=== PATIENT | female | born 1955 | race Caucasian/White ===

== ENCOUNTER 2018-08-25 13:48 | Inpatient (IN) | payer MEDICAID ==
[~2018-08-25] VITALS: Ht 170.2 cm; Wt 71.4 kg
--- NOTE | 2018-08-25 13:55 | NUR ---
ED Nurse Note: Patient brought in by ambulance from [facility] due to abnormal lab result, HGB6.7 and WBC12.68. patient is alert awake x4 ambulatory with assistance, vitals stable at this time, see flowsheet. breathing unlabored and even, skin warm to touch. patient attached to the monitor
[2018-08-25 13:59] VITALS: BP 110/72
[2018-08-25] MEDS ORDERED: ATIVAN0.5 MG ORAL (14:01)
[2018-08-25] MEDS ORDERED: MULTIVITAMINS1 EAC8 ORAL (14:01)
[2018-08-25] MEDS ORDERED: LACTULOSE20 GM/301 ORAL (14:01)
[2018-08-25] MEDS ORDERED: MILK OF MA400 MG/51 ORAL (14:01)
[2018-08-25] MEDS ORDERED: FUROSEMIDE20 M1 ORAL (14:01)
[2018-08-25] MEDS ORDERED: ZYPREXA5 MG ORAL (14:01)
[2018-08-25] MEDS ORDERED: MORPHINE S10 MG/5 ML ORAL ×2 (14:01)
[2018-08-25] MEDS ORDERED: TUMS200 M1 PO (14:01)
[2018-08-25] MEDS ORDERED: AMBIEN5 MG ORAL (14:01)
[2018-08-25] MEDS ORDERED: LORATADINE10 M1 PO (14:01)
[2018-08-25] MEDS ORDERED: ZOFRAN4 M3 ORAL (14:01)
[2018-08-25] MEDS ORDERED: ALBUTEROL SULF8.5 GM INH (14:01)
--- NOTE | 2018-08-25 14:27 | NUR ---
ED Nurse Note: patient able to walk and void on her own per Dr. Shreyas wright straight cath
--- NOTE | 2018-08-25 14:31 | Diagnostic Imaging Report ---
Indication: Dyspnea Comparison: None A single view chest radiograph was obtained. Findings: Moderate to large hiatal hernia is present. Heart size is normal. Lungs are clear. No infiltrate identified. The bones are unremarkable. IMPRESSION: No acute cardiopulmonary disease identified Hiatal hernia
[2018-08-25 14:40] LABS: MEAN CORPUSCULAR VOLUME 69 FL (80-99); PLATELET COUNT 182 K/UL (150-450); RED BLOOD COUNT 3.21 M/UL (4.20-5.40); RED CELL DISTRIBUTION WIDTH 15.1 % (11.6-14.8); WHITE BLOOD COUNT 7.8 K/UL (4.8-10.8)
[2018-08-25 14:42] LABS: HEMOGLOBIN 6.8 G/DL (12.0-16.0)
[2018-08-25 14:46] LABS: INR 1.1 (0.9-1.1)
[2018-08-25 14:47] LABS: ANION GAP 7 mmol/L (5-15); BLOOD UREA NITROGEN 18 mg/dL (7-18); CALCIUM 8.7 MG/DL (8.5-10.1); CARBON DIOXIDE 30 MMOL/L (21-32); CHLORIDE 102 MMOL/L (98-107); CREATININE 0.9 MG/DL (0.55-1.30); POTASSIUM 3.9 MMOL/L (3.5-5.1); SODIUM 139 MMOL/L (136-145)
[2018-08-25 14:47] LABS: APPEARANCE,URINE CLEAR; BILIRUBIN, URINE NEGATIVE (NEGATIVE); GLUCOSE, URINE (UA) NEGATIVE (NEGATIVE); KETONES,URINE NEGATIVE (NEGATIVE); LEUKOCYTE ESTERASE ,URINE 1+ (NEGATIVE); NITRITE,URINE NEGATIVE (NEGATIVE); PH,URINE 7 (4.5-8.0); PROTEIN,URINE NEGATIVE (NEGATIVE); UROBILINOGEN,URINE NORMAL MG/DL (0.0-1.0)
[2018-08-25 14:50] LABS: COLOR,URINE YELLOW
[2018-08-25 15:13] LABS: ALANINE AMINOTRANSFERASE 19 U/L (12-78); ALBUMIN/GLOBULIN RATIO 0.8 (1.0-2.7); ALKALINE PHOSPHATASE 153 U/L (46-116); ASPARTATE AMINO TRANSFERASE 23 U/L (15-37); BILIRUBIN,TOTAL 0.4 MG/DL (0.2-1.0); CKMB 1.2 NG/ML (0.0-3.6); CREATINE KINASE 46 U/L (26-308)
[2018-08-25] MEDS ORDERED: Morphine Sulfate 2mg/ml Inj(IV/IM USE ONLY) IVP ONE ×2 (15:30→16:15)
--- NOTE | 2018-08-25 15:45 | NUR ---
ED Nurse Note: 1st PRBC started, VSS, see blood transfusion sheet.
[2018-08-25 15:52] VITALS: BP 110/72
[2018-08-25 15:53] VITALS: BP 109/63
--- NOTE | 2018-08-25 16:00 | NUR ---
ED Nurse Note: patient is tolerating blood transfusion without any complication, vss, see transfusion sheet.
--- NOTE | 2018-08-25 16:28 | NUR ---
ED Nurse Note: per Dr. Pritchett, patient ok to be transferred to , 1st unit of PRBC is running without complication
[2018-08-25 16:47] VITALS: BP 112/62
--- NOTE | 2018-08-25 16:49 | NUR ---
ED Nurse Note: patient is being transferred up to 4E with TRADE MARKER endorsed all care and belongings to Yany RN. Endorsed to Yany that paitent's 1st PRBC is infusing at this time, endorsed that total of 2 PRBC was ordered. Yany acknowledged.
--- NOTE | 2018-08-25 16:51 | NUR ---
ED Nurse Note: called and notified Jerica Mohr [phone] that patient is transferred to 420-1
--- NOTE | 2018-08-25 16:51 | Emergency Room Report ---
History of Present Illness General Chief Complaint: Abnormal Labs Source: Patient, Medical Record Present Illness HPI 62-year-old female presents ED for evaluation. Brought in by EMS from [facility]. Poorly had low hemoglobin and hematocrit on labs drawn done recently. Patient states she feels fine. States she does have blood in her stool but states she's been also experiencing hemorrhoids. States that she's had previous anemia and has required blood transfusion. Denies any dizziness or weakness. Has history of cirrhosis and has required paracentesis in the past. No other aggravating relieving factors. Denies any other associated symptoms Allergies: Coded Allergies: PROPOXYPHENE (Verified Allergy, Unknown, 08/25/18) Patient History Past Medical History: GERD, psych hx, other - cirrhosis Past Surgical History: none Pertinent Family History: none Social History: Denies: smoking, alcohol use, drug use Now: No Immunizations: UTD Reviewed Nursing Documentation: PMH: Agreed; PSxH: Agreed Nursing Documentation-PMH Past Medical History: No History, Except For Hx Hypertension: Yes Hx Gastrointestinal Problems: Yes - Liver Cirrhosis, edema, GERD History Of Psychiatric Problem: Yes - Psychosis, major depression, anxiety Review of Systems All Other Systems: negative except mentioned in HPI Physical Exam Vital Signs Date Time Temp Pulse Resp B/P (MAP) Pulse Ox O2 Delivery O2 Flow Rate FiO2 08/25/18 13:49 98.8 98 16 97 Room Air 08/25/18 13:59 110/72 Sp02 EP Interpretation: reviewed, normal General Appearance: no apparent distress, alert, GCS 15, non-toxic Head: normocephalic, atraumatic Eyes: bilateral eye normal inspection, bilateral eye PERRL ENT: hearing grossly normal, normal pharynx, no angioedema, normal voice Neck: full range of motion, supple/symm/no masses Respiratory: chest non-tender, lungs clear, normal breath sounds, speaking full sentences Cardiovascular #1: regular rate, rhythm, no edema Cardiovascular #2: 2+ carotid (R), 2+ carotid (L), 2+ radial (R), 2+ radial (L) , 2+ dorsalis pedis (R), 2+ dorsalis pedis (L) Gastrointestinal: normal bowel sounds, non tender, soft, non-distended, no guarding, no rebound Rectal: blood streaked stool, heme positive stool, other - buffet attendant present Genitourinary: normal inspection, no CVA tenderness Musculoskeletal: back normal, gait/station normal, normal range of motion, non- tender Neurologic: alert, oriented x3, responsive, motor strength/tone normal, sensory intact, speech normal Psychiatric: judgement/insight normal, memory normal, mood/affect normal, no suicidal/homicidal ideation Reflexes: 3+ bicep (R), 3+ bicep (L), 3+ tricep (R), 3+ tricep (L), 3+ knee (R) , 3+ knee (L) Skin: normal color, no rash, warm/dry, well hydrated Lymphatic: no adenopathy Medical Decision Making Diagnostic Impression: Primary Impression: Anemia Qualified Codes: D64.9 - Anemia, unspecified Additional Impression: LGI bleed ER Course Hospital Course 62-year-old F presents to ED with low hemoglobin on labs, blood in stool Differential diagnoses include: UGIB, LGIB, hemorrhoids Clinical course Patient placed on stretcher. awake overnight monitor. After initial history and physical I ordered labs, IV fluids, EKG, CXR Labs - no leukocytosis, Hb/Hct 6.8/22. electrolytes ok. guiac + EKG - NSR, no acute ischemic changes interpreted by me CXR - hiatal hernia, no acute process Discussed findings with patient and family. PRBCs ordered and transfusion started Case discussed with Dr. Chavez (per insurance) and he agreed to accept the patient to his service for further care and support I feel this is a highly complex case requiring extensive working including EKG/ Rhythm strip, Xray/CT/US, Blood/urine lab work, repeat exams while in ED, and administration of strong opiates/narcotics for pain control, admission to hospital or close patient follow up. Diagnosis - LGIB, anemia Patient admitted to floor in serious condition Labs Test 08/25/18 14:20 08/25/18 14:25 White Blood Count 7.8 K/UL (4.8-10.8) Red Blood Count 3.21 M/UL (4.20-5.40) Hemoglobin 6.8 G/DL (12.0-16.0) Hematocrit 22.0 % (37.0-47.0) Mean Corpuscular Volume 69 FL (80-99) Mean Corpuscular Hemoglobin 21.1 PG (27.0-31.0) Mean Corpuscular Hemoglobin Concent 30.8 G/DL (32.0-36.0) Red Cell Distribution Width 15.1 % (11.6-14.8) Platelet Count 182 K/UL (150-450) Mean Platelet Volume 7.6 FL (6.5-10.1) Neutrophils (%) (Auto) % (45.0-75.0) Lymphocytes (%) (Auto) % (20.0-45.0) Monocytes (%) (Auto) % (1.0-10.0) Eosinophils (%) (Auto) % (0.0-3.0) Basophils (%) (Auto) % (0.0-2.0) Differential Total Cells Counted 100 Neutrophils % (Manual) 64 % (45-75) Lymphocytes % (Manual) 28 % (20-45) Monocytes % (Manual) 6 % (1-10) Eosinophils % (Manual) 1 % (0-3) Basophils % (Manual) 1 % (0-2) Band Neutrophils 0 % (0-8) Platelet Estimate Adequate Platelet Morphology Normal Hypochromasia 4+ Anisocytosis 1+ Microcytosis 2+ Prothrombin Time 11.4 SEC (9.30-11.50) Prothromb Time International Ratio 1.1 (0.9-1.1) Activated Partial Thromboplast Time 30 SEC (23-33) Sodium Level 139 MMOL/L (136-145) Potassium Level 3.9 MMOL/L (3.5-5.1) Chloride Level 102 MMOL/L (98-107) Carbon Dioxide Level 30 MMOL/L (21-32) Anion Gap 7 mmol/L (5-15) Blood Urea Nitrogen 18 mg/dL (7-18) Creatinine 0.9 MG/DL (0.55-1.30) Estimat Glomerular Filtration Rate > 60 mL/min (>60) Glucose Level 114 MG/DL (74-106) Lactic Acid Level 1.60 mmol/L (0.4-2.0) Calcium Level 8.7 MG/DL (8.5-10.1) Total Bilirubin 0.4 MG/DL (0.2-1.0) Aspartate Amino Transf (AST/SGOT) 23 U/L (15-37) Alanine Aminotransferase (ALT/SGPT) 19 U/L (12-78) Alkaline Phosphatase 153 U/L (46-116) Total Creatine Kinase 46 U/L (26-308) Creatine Kinase MB 1.2 NG/ML (0.0-3.6) Creatine Kinase MB Relative Index 2.6 Troponin I 0.000 ng/mL (0.000-0.056) Pro-B-Type Natriuretic Peptide 127 pg/mL (0-125) Total Protein 6.7 G/DL (6.4-8.2) Albumin 3.0 G/DL (3.4-5.0) Globulin 3.7 g/dL Albumin/Globulin Ratio 0.8 (1.0-2.7) Urine Color Yellow Urine Appearance Clear Urine pH 7 (4.5-8.0) Urine Specific [place] 1.010 (1.005-1.035) Urine Protein Negative (NEGATIVE) Urine Glucose (UA) Negative (NEGATIVE) Urine Ketones Negative (NEGATIVE) Urine Blood Negative (NEGATIVE) Urine Nitrite Negative (NEGATIVE) Urine Bilirubin Negative (NEGATIVE) Urine Urobilinogen Normal MG/DL (0.0-1.0) Urine Leukocyte Esterase 1+ (NEGATIVE) Urine RBC 0 /HPF (0 - 2) Urine WBC 0-2 /HPF (0 - 2) Urine Squamous Epithelial Cells Occasional /LPF Urine Bacteria None /HPF (NONE) EKG Diagnostic Results Rate: normal Rhythm: NSR ST Segments: no acute changes ASA given to the pt in ED: No Rhythm Strip Diag. Results EP Interpretation: yes Rhythm: NSR, no PVC's, no ectopy Chest X-Ray Diagnostic Results Chest X-Ray Diagnostic Results : Chest X-Ray Ordered: Yes # of Views/Limited/Complete: 1 View Indication: Other EP Interpretation: Yes Interpretation: no consolidation, no effusion, no pneumothorax, no acute cardiopulmonary disease, other - hiatal hernia Impression: Other - hiatal hernia Electronically Signed by: Electronically signed by Herman Goncalves MD Last Vital Signs Date Time Temp Pulse Resp B/P (MAP) Pulse Ox O2 Delivery O2 Flow Rate FiO2 08/25/18 16:02 98.7 08/25/18 15:53 97 13 109/63 100 Room Air Status: improved Disposition: ADMITTED INPATIENT Condition: Serious Referrals: Joshua Del Rio MD (PCP) Herman Goncalves MD August 25, 2018 16:51
[2018-08-25 17:04] VITALS: BP 116/72
--- NOTE | 2018-08-25 17:05 | NUR ---
NURSE NOTES: Patient came to the floor around 1700 by den. Vitals taken upon arrival to the floor. Skin intact. IV Right Hand and Right For-arm, RBC 1 unit is running. Patient is alert x4. Belonging list signed by ER nurse and receiving nurse. Bed at lowest position, side rials up x2, breaks engaged. Call light within reach. Will keep monitoring.
--- NOTE | 2018-08-25 17:20 | NUR ---
NURSE NOTES: Called MD Burks to get admission order, waiting for order.
--- NOTE | 2018-08-25 18:40 | NUR ---
NURSE NOTES: Called kitchen for order received from patient, 4 chocolate flavor Ice cream, Strawbery Yogurt and coffee with creamer.
[2018-08-25] MEDS ORDERED: Zolpidem 5mg tab ORAL PRN (19:15)
--- NOTE | 2018-08-25 19:30 | NUR ---
NURSE NOTES: Received a report from LARA Duong. Pt is in stable condition. AAOX4. Able to make needs known. IV site is patent and intact. Bed in lowest position. Bed alarm is on. Call light within reach. Will continue to monitor.
--- NOTE | 2018-08-25 19:37 | NUR ---
HAND-OFF: Report given to LARA Gates.
--- NOTE | 2018-08-25 19:45 | NUR ---
NURSE NOTES: 1st unit of blood is finished. V/S= T: 97.6, P: 95, RR:18, BP: 137/75, O2 Sat: 98%, Pain: 0/10. No adverse reaction noted.
[2018-08-25 20:00] VITALS: BP 142/82
--- NOTE | 2018-08-25 20:45 | NUR ---
NURSE NOTES: 2nd unit of blood is starting. V/S= T: 97.7, P: 91, RR:17, BP: 114/59, O2 Sat: 97%, Pain; 0/10. Will continue to monitor.
--- NOTE | 2018-08-25 21:00 | NUR ---
NURSE NOTES: V/S 15 mins after the 2nd unit of blood has started. V/S= T: 97.7, P: 87, RR:18, BP: 124/80, O2 Sat: 97%, Pain; 0/10. Will continue to monitor
--- NOTE | 2018-08-25 21:15 | NUR ---
NURSE NOTES: Pt refused all of her meds despite education provided.
[2018-08-25] MEDS: MS Contin 15mg tab ORAL SCH (21:45)
--- NOTE | 2018-08-25 23:29 | NUR ---
NURSE NOTES: 2nd unit of blood is finished. V/S= T: 98.2, P: 100, RR:18, BP: 112/53, O2 Sat: 96%, Pain; 0/10. No adverse reaction noted.
[2018-08-26] VITALS: BP 111/70
--- NOTE | 2018-08-26 02:00 | History and Physical Report ---
DATE OF ADMISSION: 08/25/2018 HISTORY OF PRESENT ILLNESS: This is a 62-year-old female with history of chronic back pain, liver cirrhosis, and GERD as well as psych disorder who [facility] because of low hemoglobin. The patient was asymptomatic, but had been reporting that she is doing better. She has a history of hemorrhoids as well. The patient has previously been admitted to outside hospital and required transfusions as well. In the past, she has had thoracentesis as well. ALLERGIES: Propoxyphene. PAST MEDICAL HISTORY: Liver cirrhosis, GERD, psych disorder, chronic pain. SURGERIES: None. HOME MEDICATIONS: Include Cymbalta, Claritin, oral morphine, multivitamin, Zyprexa, and Ambien. REVIEW OF SYSTEMS: Denies any headaches, hematemesis, melena, hematochezia, night sweats, or weight loss. PHYSICAL EXAMINATION: GENERAL: Reveals a 62-year-old female. HEENT: Unremarkable. CHEST: Clear breath sounds bilaterally. ABDOMEN: Soft. EXTREMITIES: There is no edema. NEUROLOGICAL: Nonfocal. LABORATORY DATA: Lab testing shows hemoglobin of 6.8. Glucose 114, alkaline phosphatase 153. Coags are negative. IMPRESSION: 1. Liver cirrhosis. 2. Anemia. 3. History of hemorrhoidal bleeding. 4. Chronic back pain, on morphine. DISCUSSION: Admit to the hospital. Continue home medications. Consult GI. We will transfuse and follow carefully. Bilateral SCDs. Full Code. Gato Chavez M.D. DR: GEORGETTE JOB#: [id number] CC:
[2018-08-26 04:00] VITALS: BP 110/66
--- NOTE | 2018-08-26 07:00 | NUR ---
HAND-OFF: Report given to LARA Duong.
[2018-08-26 07:08] LABS: BASOPHILS % (AUTO) 2.1 % (0.0-2.0); EOSINOPHILS % (AUTO) 6.5 % (0.0-3.0); HEMOGLOBIN 8.8 G/DL (12.0-16.0); LYMPHOCYTES % (AUTO) 25.8 % (20.0-45.0); MEAN CORPUSCULAR VOLUME 71 FL (80-99); NEUTROPHILS % (AUTO) 58.6 % (45.0-75.0); PLATELET COUNT 177 K/UL (150-450); RED BLOOD COUNT 3.96 M/UL (4.20-5.40); RED CELL DISTRIBUTION WIDTH 16.4 % (11.6-14.8); WHITE BLOOD COUNT 5.9 K/UL (4.8-10.8)
--- NOTE | 2018-08-26 07:49 | NUR ---
NURSE NOTES: Patient alert x4, on room air, no sing of distress and shortness of breath; IV Right Hand and Right For-Arm, flushes well; OB stool and swaps done by PM nurseBrittani, results are pending; bed at lowest position, side rails up x2, breaks engaged; call light within reach, will keep monitoring.
[2018-08-26 08:00] VITALS: BP 115/69
[2018-08-26] MEDS: MS Contin 15mg tab ORAL SCH ×2 (08:47→21:08)
--- NOTE | 2018-08-26 09:04 | NUR ---
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 LGI BLEED VS: BP 106/70, P 98, T 98.7, RR 16, SpO2 97 RBC 3.21, H&H 6.8/22.0 CXR: HIATAL HERNIA IS:NS x 1L IV MORPHINE SULFATE 2mg IVP 1 PRBC TRANSFUSED STARTED IN ER ADMITTED TO MED/SURG DCP: RETURN TO [facility]
--- NOTE | 2018-08-26 10:32 | GI Initial Consult Note ---
History of Present Illness General Date patient seen: August 26, 2018 Time patient seen: 10:25 Reason for Hospitalization: Abnormal Labs Referring physician: SAWYER Reason for Consultation: Anemia Present Illness HPI 62-year-old female presents ED for evaluation. Brought in by EMS from [facility]. Poorly had low hemoglobin and hematocrit on labs drawn done recently. Patient states she feels fine. States she does have blood in her stool but states she's been also experiencing hemorrhoids. States that she's had previous anemia and has required blood transfusion. Denies any dizziness or weakness. Has history of cirrhosis and has required paracentesis in the past. No other aggravating relieving factors. Denies any other associated symptoms GI consulted for anemia. Patient seen, awake alert and oriented x4 in no apparent distress. No active signs and symptoms of nausea or vomiting or diarrhea. The patient denies any abdominal pain. Patient reported that she had bright red rectal bleeding which has now resolved. She presented to the emergency room with a hemoglobin of 6.8. No hypercoagulation noted. OB stool is pending. Patient states that she has a history of internal hemorrhoids. She states that she has had multiple endoscopies and colonoscopies done in her lifetime. She recalls her last endoscopy and colonoscopy performed within the year and refuses to have one done at this time. The patient is wishes to go home today. Home Meds Reported Medications Olanzapine* (ZYPREXA*) 5 Mg Tablet, 5 MG ORAL BID, TAB 08/25/18 Calcium Carbonate (TUMS) 200 Mg Tab.chew, 200 MG PO NEEDED PRN for heartburn , TAB 08/25/18 Ondansetron* (ZOFRAN*) 4 Mg Tablet, 4 MG ORAL Q4HR PRN for Nausea & Vomiting, TAB 08/25/18 Multivitamin With Minerals (MULTIVITAMINS WITH MINERALS*) 1 Each Tablet, 1 TAB ORAL DAILY, TAB 08/25/18 Morphine 10mg/5ml Oral Soln* (Morphine 10mg/5ml Oral Soln*) 10 Mg/5 Ml Solution , 15 MG ORAL BID PRN for For Pain, #10 ML 0 Refills 08/25/18 Morphine 10mg/5ml Oral Soln* (Morphine 10mg/5ml Oral Soln*) 10 Mg/5 Ml Solution , 5 MG ORAL EVERY 2 HOURS PRN for For Pain, #10 ML 0 Refills 08/25/18 Magnesium Hydroxide* (MILK OF MAGNESIA*) 400 Mg/5 Ml Oral.susp, 10 ML ORAL DAILY PRN for Constipation, ML 08/25/18 Loratadine (LORATADINE) 10 Mg Tab.rapdis, 10 MG PO DAILY, TAB 08/25/18 Furosemide* (LASIX*) 20 Mg Tablet, 20 MG ORAL BID, TAB 08/25/18 Lactulose (LACTULOSE*) 20 Gm/30 Ml Solution, 45 ML ORAL BID, ML 0 Refills 08/25/18 Lorazepam* (ATIVAN*) 0.5 Mg Tablet, 0.5 MG ORAL BID, TAB 08/25/18 Zolpidem Tartrate* (AMBIEN*) 5 Mg Tablet, 5 MG ORAL BEDTIME PRN for Insomnia, TAB 08/25/18 Albuterol Sulfate* (ALBUTEROL SULFATE MDI*) 8.5 Gm Hfa.aer.ad, 2 PUFF INH Q6H PRN for Shortness of Breath, #1 INH 0 Refills 08/25/18 Med list reviewed/reconciled: Yes Allergies: Coded Allergies: PROPOXYPHENE (Verified Allergy, Unknown, 08/25/18) Patient History History Provided By: Patient, Medical Record PMH Narrative Past Medical History: GERD, psych hx, other - cirrhosis Past Surgical History: none Pertinent Family History: none Social History: Denies: smoking, alcohol use, drug use Now: No Immunizations: UTD Reviewed Nursing Documentation: PMH: Agreed; PSxH: Agreed Nursing Documentation-PMH Past Medical History: No History, Except For Hx Hypertension: Yes Hx Gastrointestinal Problems: Yes - Liver Cirrhosis, edema, GERD History Of Psychiatric Problem: Yes - Psychosis, major depression, anxiety Social History: Denies: smoking, alcohol use, drug use, other Review of Systems All Other Systems: negative except mentioned in HPI Physical Exam Vital Signs Date Time Temp Pulse Resp B/P (MAP) Pulse Ox O2 Delivery O2 Flow Rate FiO2 08/25/18 13:49 98.8 98 16 97 Room Air 08/25/18 13:59 110/72 Sp02 EP Interpretation: reviewed, normal Labs Laboratory Tests Test 08/25/18 14:20 08/25/18 14:25 08/26/18 00:30 08/26/18 06:12 White Blood Count 7.8 K/UL (4.8-10.8) 5.9 K/UL (4.8-10.8) Red Blood Count 3.21 M/UL (4.20-5.40) L 3.96 M/UL (4.20-5.40) L Hemoglobin 6.8 G/DL (12.0-16.0) *L 8.8 G/DL (12.0-16.0) L Hematocrit 22.0 % (37.0-47.0) L 28.0 % (37.0-47.0) L Mean Corpuscular Volume 69 FL (80-99) L 71 FL (80-99) L Mean Corpuscular Hemoglobin 21.1 PG (27.0-31.0) L 22.3 PG (27.0-31.0) L Mean Corpuscular Hemoglobin Concent 30.8 G/DL (32.0-36.0) L 31.7 G/DL (32.0-36.0) L Red Cell Distribution Width 15.1 % (11.6-14.8) H 16.4 % (11.6-14.8) H Platelet Count 182 K/UL (150-450) 177 K/UL (150-450) Mean Platelet Volume 7.6 FL (6.5-10.1) 7.1 FL (6.5-10.1) Neutrophils (%) (Auto) % (45.0-75.0) 58.6 % (45.0-75.0) Lymphocytes (%) (Auto) % (20.0-45.0) 25.8 % (20.0-45.0) Monocytes (%) (Auto) % (1.0-10.0) 7.0 % (1.0-10.0) Eosinophils (%) (Auto) % (0.0-3.0) 6.5 % (0.0-3.0) H Basophils (%) (Auto) % (0.0-2.0) 2.1 % (0.0-2.0) H Differential Total Cells Counted 100 Neutrophils % (Manual) 64 % (45-75) Lymphocytes % (Manual) 28 % (20-45) Monocytes % (Manual) 6 % (1-10) Eosinophils % (Manual) 1 % (0-3) Basophils % (Manual) 1 % (0-2) Band Neutrophils 0 % (0-8) Platelet Estimate Adequate Platelet Morphology Normal Hypochromasia 4+ Anisocytosis 1+ Microcytosis 2+ Prothrombin Time 11.4 SEC (9.30-11.50) Prothromb Time International Ratio 1.1 (0.9-1.1) Activated Partial Thromboplast Time 30 SEC (23-33) Sodium Level 139 MMOL/L (136-145) Potassium Level 3.9 MMOL/L (3.5-5.1) Chloride Level 102 MMOL/L (98-107) Carbon Dioxide Level 30 MMOL/L (21-32) Anion Gap 7 mmol/L (5-15) Blood Urea Nitrogen 18 mg/dL (7-18) Creatinine 0.9 MG/DL (0.55-1.30) Estimat Glomerular Filtration Rate > 60 mL/min (>60) Glucose Level 114 MG/DL (74-106) H Lactic Acid Level 1.60 mmol/L (0.4-2.0) Calcium Level 8.7 MG/DL (8.5-10.1) Total Bilirubin 0.4 MG/DL (0.2-1.0) Aspartate Amino Transf (AST/SGOT) 23 U/L (15-37) Alanine Aminotransferase (ALT/SGPT) 19 U/L (12-78) Alkaline Phosphatase 153 U/L (46-116) H Total Creatine Kinase 46 U/L (26-308) Creatine Kinase MB 1.2 NG/ML (0.0-3.6) Creatine Kinase MB Relative Index 2.6 Troponin I 0.000 ng/mL (0.000-0.056) Pro-B-Type Natriuretic Peptide 127 pg/mL (0-125) H Total Protein 6.7 G/DL (6.4-8.2) Albumin 3.0 G/DL (3.4-5.0) L Globulin 3.7 g/dL Albumin/Globulin Ratio 0.8 (1.0-2.7) L Urine Color Yellow Urine Appearance Clear Urine pH 7 (4.5-8.0) Urine Specific [employer] 1.010 (1.005-1.035) Urine Protein Negative (NEGATIVE) Urine Glucose (UA) Negative (NEGATIVE) Urine Ketones Negative (NEGATIVE) Urine Blood Negative (NEGATIVE) Urine Nitrite Negative (NEGATIVE) Urine Bilirubin Negative (NEGATIVE) Urine Urobilinogen Normal MG/DL (0.0-1.0) Urine Leukocyte Esterase 1+ (NEGATIVE) H Urine RBC 0 /HPF (0 - 2) Urine WBC 0-2 /HPF (0 - 2) Urine Squamous Epithelial Cells Occasional /LPF Urine Bacteria None /HPF (NONE) Stool Occult Blood Pending General Appearance: well appearing, no apparent distress, alert Head: normocephalic EENT: PERRL/EOMI, normal ENT inspection Neck: supple Respiratory: normal breath sounds, no respiratory distress Cardiovascular: normal rate Gastrointestinal: normal inspection, non tender, soft, normal bowel sounds, non -distended Rectal: deferred Genitourinary: no CVA tenderness Musculoskeletal: normal inspection, back normal Neurologic: normal inspection, alert, oriented x3, responsive Psychiatric: normal inspection, judgement/insight normal, memory normal Skin: normal inspection, normal color, no rash, warm/dry, palpation normal, well hydrated Lymphatic: normal inspection, no adenopathy Current Medications Current Medications Medications (Trade) Dose Ordered Sig/Blade Route PRN Reason Start Time Stop Time Status Last Admin Dose Admin Duloxetine HCl (Cymbalta) 40 mg DAILY ORAL 08/26/18 09:00 09/25/18 08:59 08/26/18 08:48 Loratadine (Claritin 10mg) 10 mg BEDTIME ORAL 08/25/18 21:00 09/24/18 20:59 Morphine Sulfate (MS Contin) 15 mg Q12HR ORAL 08/25/18 21:45 09/01/18 21:44 08/26/18 08:47 Multivitamins (Multivitamins) 1 tab DAILY ORAL 08/26/18 09:00 09/25/18 08:59 08/26/18 08:47 Olanzapine (ZyPREXA) 5 mg TID ORAL 08/25/18 19:15 09/24/18 19:14 08/26/18 08:47 Zolpidem Tartrate (Ambien) 5 mg HSPRN PRN ORAL Insomnia 08/25/18 19:15 09/01/18 19:14 GI: Plan Problems: (1) Hemorrhoids (2) Diverticular hemorrhage (3) Anemia (4) LGI bleed Plan Recent history of endoscopy and colonoscopy approximately 1 year. Status post blood transfusion 2 units. Recommend endoscopy and colonoscopy given severe anemia. However, patient refuses any GI procedures and wishes to be discharged. Recommend that the patient be observed for 1 day for any recurrent bleed or changes in H&H. OB stool collected, pending final read. Will symptomatically treat for hemorrhoids, Anusol HC twice daily anemia work up monitor H&H, prn transfusions bowel regime ppi regular diet fu labs UPDATE - patient agreed to EGD/colonoscopy, to be scheduled tomorrow. - CLD, NPO @ [place]. - hold all blood thinners tonight. will follow with additional recommendations post procedure Discussed with Dr. Chávez. Thank you for this patient referral, we will follow. The patient was seen and examined at bedside and all new and available data was reviewed in the patients chart. I agree with the above findings, impression and plan. (Patient seen earlier today. Signature stamp does not reflect patient encounter time.). - MD Berta Love Anh-Michael JASON August 26, 2018 10:32
[2018-08-26] MEDS: Hydrocortisone 25mg supp RECTAL SCH ×2 (10:51→17:22)
--- NOTE | 2018-08-26 11:28 | NUR ---
NURSE NOTES: Patient want leave today, I told patient there is no discharge order and patient wants to find out what time MD Chavez gonna come to see her. I call MD Chavez and left a message regarding this matter. Waiting for order.
[2018-08-26 12:00] VITALS: BP 126/75
--- NOTE | 2018-08-26 13:51 | NUR ---
NURSE NOTES: Patient signed consent for EGD and Colonoscopy. Consent of file.
--- NOTE | 2018-08-26 15:09 | Pulmonology Progress Note ---
Assessment/Plan Assessment/Plan IMPRESSION: 1. Liver cirrhosis. 2. Anemia. 3. History of hemorrhoidal bleeding. 4. Chronic back pain, on morphine. DISCUSSION: Continue home medications. Seen by GI Endoscopy planned. S/p prbc x 2 Bilateral SCDs. Full Code. Subjective Interval Events: S/p prbc; Hgb 8.8 Constitutional: Reports: no symptoms HEENT: Repors: no symptoms Respiratory: Reports: no symptoms Cardiovascular: Reports: no symptoms Gastrointestinal/Abdominal: Reports: no symptoms Genitourinary: Reports: no symptoms Allergies: Coded Allergies: PROPOXYPHENE (Verified Allergy, Unknown, 08/25/18) Objective Last 24 Hour Vital Signs Date Time Temp Pulse Resp B/P (MAP) Pulse Ox O2 Delivery O2 Flow Rate FiO2 08/26/18 12:00 97.7 88 18 126/75 (92) 98 08/26/18 09:17 97.8 08/26/18 09:00 Room Air 08/26/18 08:00 97.8 90 18 115/69 (84) 98 08/26/18 04:00 97.4 94 18 110/66 (81) 99 08/26/18 00:00 98.0 99 16 111/70 (84) 97 08/25/18 21:00 Room Air 08/25/18 20:00 98.2 99 16 142/82 (102) 99 08/25/18 18:43 Room Air 08/25/18 17:04 98.0 95 17 116/72 (87) 98 08/25/18 16:50 98.7 98 14 112/62 98 Room Air 08/25/18 16:47 98.7 98 14 112/62 98 Room Air 08/25/18 16:02 98.7 08/25/18 15:53 98.7 97 13 109/63 100 Room Air General Appearance: no acute distress HEENT: normocephalic Respiratory/Chest: chest wall non-tender, lungs clear Cardiovascular: normal peripheral pulses, normal rate Abdomen: normal bowel sounds, soft, non tender Extremities: no cyanosis Laboratory Tests 08/26/18 00:30: Stool Occult Blood Positive 08/26/18 06:12: White Blood Count 5.9, Red Blood Count 3.96L, Hemoglobin 8.8L, Hematocrit 28.0L , Mean Corpuscular Volume 71L, Mean Corpuscular Hemoglobin 22.3L, Mean Corpuscular Hemoglobin Concent 31.7L, Red Cell Distribution Width 16.4H, Platelet Count 177, Mean Platelet Volume 7.1, Neutrophils (%) (Auto) 58.6, Lymphocytes (%) (Auto) 25.8, Monocytes (%) (Auto) 7.0, Eosinophils (%) (Auto) 6.5H, Basophils (%) (Auto) 2.1H Current Medications Medications (Trade) Dose Ordered Sig/Blade Route PRN Reason Start Time Stop Time Status Last Admin Dose Admin Bisacodyl (Dulcolax) 10 mg ONCE ORAL 08/26/18 16:00 08/26/18 17:00 Duloxetine HCl (Cymbalta) 40 mg DAILY ORAL 08/26/18 09:00 09/25/18 08:59 08/26/18 08:48 Hydrocortisone (Anusol HC) 25 mg TWICE A DAY RECTAL 08/26/18 10:45 09/25/18 10:44 08/26/18 10:51 Loratadine (Claritin 10mg) 10 mg BEDTIME ORAL 08/25/18 21:00 09/24/18 20:59 Morphine Sulfate (MS Contin) 15 mg Q12HR ORAL 08/25/18 21:45 09/01/18 21:44 08/26/18 08:47 Multivitamins (Multivitamins) 1 tab DAILY ORAL 08/26/18 09:00 09/25/18 08:59 08/26/18 08:47 Olanzapine (ZyPREXA) 5 mg TID ORAL 08/25/18 19:15 09/24/18 19:14 08/26/18 12:11 Pantoprazole (Protonix) 40 mg DAILY ORAL 08/26/18 10:45 09/25/18 10:44 08/26/18 10:51 Polyethylene Glycol/ Electrolytes (Nulytely) 4,000 ml ONCE ORAL 08/26/18 16:00 08/26/18 23:59 Sodium Phosphate (Fleet's Sodium Phosl Enema) 133 ml ONCE RECTAL 08/26/18 23:00 08/26/18 23:59 Zolpidem Tartrate (Ambien) 5 mg HSPRN PRN ORAL Insomnia 08/25/18 19:15 09/01/18 19:14 Tirmizi,Gato Neftali MD August 26, 2018 15:09
[2018-08-26 16:00] VITALS: BP 132/77
[2018-08-26] MEDS ORDERED: Nulytely 4L ORAL SCH (16:00)
[2018-08-26] MEDS ORDERED: Bisacodyl EC 5mg tab ORAL SCH (16:00)
--- NOTE | 2018-08-26 17:00 | NUR ---
NURSE NOTES: Patient said, her urine has foul smell and patient suspect she might have UTI. I called MD Chavez to get the order to collect urine. MD Chavez gave me the order to collect urine.
--- NOTE | 2018-08-26 17:41 | NUR ---
NURSE NOTES: Urine collected and set to lab. Waiting for results.
[2018-08-26 18:15] LABS: APPEARANCE,URINE CLEAR; BILIRUBIN, URINE NEGATIVE (NEGATIVE); COLOR,URINE PALE YELLOW; GLUCOSE, URINE (UA) NEGATIVE (NEGATIVE); KETONES,URINE NEGATIVE (NEGATIVE); LEUKOCYTE ESTERASE ,URINE 1+ (NEGATIVE); NITRITE,URINE NEGATIVE (NEGATIVE); PH,URINE 7 (4.5-8.0); PROTEIN,URINE NEGATIVE (NEGATIVE); UROBILINOGEN,URINE NORMAL MG/DL (0.0-1.0)
--- NOTE | 2018-08-26 19:42 | NUR ---
HAND-OFF: Report given to LARA Carrasco.
[2018-08-26 20:00] VITALS: BP 116/73
--- NOTE | 2018-08-26 20:09 | NUR ---
NURSE NOTES: Received patient in bed, awake, alert, oriented, ambulatory, no acute distress noted, VSS, afebrile. patient will be NPO post MN for scheduled procedure EGD and colonoscopy. Call light is within reach, bed is in low position, locked and alarm is on, will continue to monitor for safety and comfort.
[2018-08-26] MEDS ORDERED: Fleet's Enema 133ml RECTAL SCH (23:00)
[2018-08-27] VITALS (8 sets, daily range): BP systolic 114–132; BP diastolic 69–97
[2018-08-27 06:00] LABS: BASOPHILS % (AUTO) 1.4 % (0.0-2.0); EOSINOPHILS % (AUTO) 5.2 % (0.0-3.0); HEMATOCRIT 30.5 % (37.0-47.0); HEMOGLOBIN 9.5 G/DL (12.0-16.0); LYMPHOCYTES % (AUTO) 32.4 % (20.0-45.0); MEAN CORPUSCULAR VOLUME 71 FL (80-99); MONOCYTES % (AUTO) 6.1 % (1.0-10.0); PLATELET COUNT 184 K/UL (150-450); RED BLOOD COUNT 4.29 M/UL (4.20-5.40); RED CELL DISTRIBUTION WIDTH 16.8 % (11.6-14.8); WHITE BLOOD COUNT 5.9 K/UL (4.8-10.8)
[2018-08-27 06:32] LABS: ALANINE AMINOTRANSFERASE 21 U/L (12-78); ALBUMIN 3.3 G/DL (3.4-5.0); ALBUMIN/GLOBULIN RATIO 0.8 (1.0-2.7); ALKALINE PHOSPHATASE 144 U/L (46-116); ANION GAP 6 mmol/L (5-15); ASPARTATE AMINO TRANSFERASE 24 U/L (15-37); BILIRUBIN,TOTAL 0.8 MG/DL (0.2-1.0); BLOOD UREA NITROGEN 17 mg/dL (7-18); CALCIUM 9.3 MG/DL (8.5-10.1); CARBON DIOXIDE 29 MMOL/L (21-32); CHLORIDE 107 MMOL/L (98-107); CREATININE 0.9 MG/DL (0.55-1.30); FERRITIN 11 NG/ML (8-388); POTASSIUM 4.2 MMOL/L (3.5-5.1); SODIUM 142 MMOL/L (136-145)
[2018-08-27 06:41] LABS: % IRON SATURATION 3 % (15-50); IRON 16 ug/dL (50-175); TOTAL IRON BINDING CAPACITY 524 ug/dL (250-450)
--- NOTE | 2018-08-27 06:50 | NUR ---
HAND-OFF: Report given to Slime BERMUDEZ.
--- NOTE | 2018-08-27 07:00 | NUR ---
NURSE NOTES: RN received pt in stable condition, alert and oriented in bed. No acute distress or SOB. Pt has EGD and colonoscopy scheduled this morning. Consents signed and in the chart. Bowel prep complete. Bed in low, locked position. Call light within reach. Will continue plan of care.
--- NOTE | 2018-08-27 07:55 | Anethesia Preoperative Eval ---
Anesthesia Pre-op PMH/ROS General Date of Evaluation: August 27, 2018 Time of Evaluation: 08:30 Anesthesiologist: Luciana ASA Score: ASA 3 Mallampati Score Class I : Soft palate, uvula, fauces, pillars visible Class II: Soft palate, uvula, fauces visible Class III: Soft palate, base of uvula visible Class IV: Only hard plate visible Mallampati Classification: Class III Surgeon: Saira Diagnosis: Anemia Surgical Procedure: EGD colonoscopy Anesthesia History: none Social History: alcohol use - sober x 2 years Family History: no anesthesia problems Allergies: Coded Allergies: PROPOXYPHENE (Verified Allergy, Unknown, 08/25/18) Medications: see eMAR Patient NPO?: Yes NPO Date: August 27, 2018 NPO Time: 00:00 Past Medical History Cardiovascular: Reports: HTN; Denies: CAD, NV, valve dz, arrhythmia, other Pulmonary: Denies: asthma, COPD, RONNY, other Gastrointestinal/Genitourinary: Reports: GERD, other - liver cirrhosis s/p paracentesis, hemorrhoids; Denies: CRI, ESRD Neurologic/Psychiatric: Reports: depression/anxiety, other - psych disorder; Denies: dementia, CVA, TIA Endocrine: Denies: DM, hypothyroidism, steroids, other HEENT: Denies: cataract (L), cataract (R), glaucoma, [place] (L), [place] (R), other Hematology/Immune: Denies: anemia, DVT, bleeding disorder, other Musculoskeletal/Integumentary: Reports: DDD, edema, other - chronic LBP; Denies: OA, RA, DJD PMH Narrative: as noted above PSxH Narrative: see H & P Anesthesia Pre-op Phys. Exam Physician Exam Last Vital Signs Date Time Temp Pulse Resp B/P (MAP) Pulse Ox O2 Delivery O2 Flow Rate FiO2 08/27/18 04:00 98.8 86 18 125/80 (95) 08/26/18 21:00 Room Air 08/26/18 16:00 98 Constitutional: NAD Neurologic: other - alert & oriented Cardiovascular: RRR Respiratory: CTA Gastrointestinal: S/NT/ND Airway Exam Mallampati Score: Class III Neck: FROM TMD: 3 FB Teeth: intact, broken Dentures: no upper, no lower Anesthesia Pre-op A/P Labs Hematology Test 08/27/18 04:32 White Blood Count 5.9 K/UL (4.8-10.8) Red Blood Count 4.29 M/UL (4.20-5.40) Hemoglobin 9.5 G/DL (12.0-16.0) L Hematocrit 30.5 % (37.0-47.0) L Mean Corpuscular Volume 71 FL (80-99) L Mean Corpuscular Hemoglobin 22.2 PG (27.0-31.0) L Mean Corpuscular Hemoglobin Concent 31.3 G/DL (32.0-36.0) L Red Cell Distribution Width 16.8 % (11.6-14.8) H Platelet Count 184 K/UL (150-450) Mean Platelet Volume 7.2 FL (6.5-10.1) Neutrophils (%) (Auto) 55.0 % (45.0-75.0) Lymphocytes (%) (Auto) 32.4 % (20.0-45.0) Monocytes (%) (Auto) 6.1 % (1.0-10.0) Eosinophils (%) (Auto) 5.2 % (0.0-3.0) H Basophils (%) (Auto) 1.4 % (0.0-2.0) Reticulocyte Count Pending Coagulation Test 08/27/18 04:32 Prothrombin Time 10.9 SEC (9.30-11.50) Prothromb Time International Ratio 1.0 (0.9-1.1) Activated Partial Thromboplast Time 26 SEC (23-33) Chemistry Test 08/27/18 04:32 Sodium Level 142 MMOL/L (136-145) Potassium Level 4.2 MMOL/L (3.5-5.1) Chloride Level 107 MMOL/L (98-107) Carbon Dioxide Level 29 MMOL/L (21-32) Anion Gap 6 mmol/L (5-15) Blood Urea Nitrogen 17 mg/dL (7-18) Creatinine 0.9 MG/DL (0.55-1.30) Estimat Glomerular Filtration Rate > 60 mL/min (>60) Glucose Level 86 MG/DL (74-106) Calcium Level 9.3 MG/DL (8.5-10.1) Iron Level 16 ug/dL (50-175) L Total Iron Binding Capacity 524 ug/dL (250-450) H Percent Iron Saturation 3 % (15-50) L Unsaturated Iron Binding 508 ug/dL (112-346) H Ferritin 11 NG/ML (8-388) Total Bilirubin 0.8 MG/DL (0.2-1.0) Aspartate Amino Transf (AST/SGOT) 24 U/L (15-37) Alanine Aminotransferase (ALT/SGPT) 21 U/L (12-78) Alkaline Phosphatase 144 U/L (46-116) H Total Protein 7.3 G/DL (6.4-8.2) Albumin 3.3 G/DL (3.4-5.0) L Globulin 4.0 g/dL Albumin/Globulin Ratio 0.8 (1.0-2.7) L Carcinoembryonic Antigen Pending Vitamin B12 Level 754 PG/ML (193-986) Folate 15.5 NG/ML (8.6-58.9) Thyroid Stimulating Hormone (TSH) 3.286 uiU/mL (0.358-3.740) Free Thyroxine 1.04 NG/DL (0.76-1.46) Risk Assessment & Plan Assessment: ASA 3, ok to proceed Plan: MAC Status Change Before Surgery: No Pre-Antibiotics Given Within 1 Hr of Incision: No Luciana Solis CRNA August 27, 2018 07:55
[2018-08-27] MEDS: MS Contin 15mg tab ORAL SCH (08:23)
[2018-08-27] MEDS: Hydrocortisone 25mg supp RECTAL SCH (08:24)
[2018-08-27] MEDS ORDERED: Propofol 200mg/20ml IV ONE (08:30)
[2018-08-27] MEDS ORDERED: Lidocaine 1% MPF 10mg/ml 5ml ONE (08:30)
[2018-08-27] MEDS ORDERED: NS 500ML IVPB ONE (08:40)
--- NOTE | 2018-08-27 08:46 | Pre-Procedure Note/Attestation ---
Pre-Procedure Note/Attestation Complete Prior to Procedure Planned Procedure: not applicable Procedure Narrative: esophagogastroduodenoscopy and colonoscopy Indications for Procedure Pre-Operative Diagnosis: anemia Attestation I attest that I discussed the nature of the procedure; its benefits; risks and complications; and alternatives (and the risks and benefits of such alternatives ), prior to the procedure, with the patient (or the patient's legal sales representative sales manager). I attest that, if there was a reasonable possibility of needing a blood transfusion, the patient (or the patient's legal sales representative sales manager) was given the [facility] standardized written summary, pursuant to the George Chad Blood Safety Act ([place] Health and Safety Code # 1645, as amended). I attest that I re-evaluated the patient just prior to the surgery and that there has been no change in the patient's H&P, except as documented below: Vahe Chávez MD August 27, 2018 08:46
--- NOTE | 2018-08-27 09:39 | Endoscopy Procedure Note ---
Endoscopy Procedure Note General Indication for Procedure: anemia, GIB Procedures Performed: EGD, colonoscopy Operative Findings/Diagnosis: , 5 colon polyps Specimen: yes Pt Tolerated Procedure Well: Yes Estimated Blood Loss: none Anesthesia Anesthesiologist: jeanette Anesthesia: MAC Inserted Devices Implant(s) used?: No GI Core Measures 50 yrs or older w/o bx or poly: Not Applicable 10yrs. F/U recommended: Not Applicable Vahe Chávez MD August 27, 2018 09:39
--- NOTE | 2018-08-27 09:43 | Pulmonology Progress Note ---
Assessment/Plan Assessment/Plan IMPRESSION: 1. Liver cirrhosis. 2. Anemia. 3. History of hemorrhoidal bleeding. 4. Chronic back pain, on morphine. DISCUSSION: Continue home medications. Seen by GI Endoscopy results noted Has gastritis and rectal polyp (removed) S/p prbc x 2; HGb now 9.5 Bilateral SCDs. Full Code. Dc home PPI and carafate added Subjective Interval Events: S/p EGD and colonscopy Constitutional: Reports: no symptoms HEENT: Repors: no symptoms Respiratory: Reports: no symptoms Cardiovascular: Reports: no symptoms Gastrointestinal/Abdominal: Reports: no symptoms Genitourinary: Reports: no symptoms Allergies: Coded Allergies: PROPOXYPHENE (Verified Allergy, Unknown, 08/25/18) Objective Last 24 Hour Vital Signs Date Time Temp Pulse Resp B/P (MAP) Pulse Ox O2 Delivery O2 Flow Rate FiO2 08/27/18 08:00 98.0 87 18 132/87 (102) 99 08/27/18 04:00 98.8 86 18 125/80 (95) 08/27/18 00:00 98.9 86 16 127/87 (100) 08/26/18 21:00 Room Air 08/26/18 20:00 98.9 84 16 116/73 (87) 08/26/18 16:00 97.8 91 18 132/77 (95) 98 08/26/18 12:00 97.7 88 18 126/75 (92) 98 Intake and Output 08/26/18 08/27/18 18:59 06:59 Intake Total 1200 ml Balance 1200 ml Intake Oral 1200 ml # Voids 4 4 # Bowel Movements 2 General Appearance: no acute distress HEENT: normocephalic Respiratory/Chest: chest wall non-tender, lungs clear Cardiovascular: normal peripheral pulses, normal rate Abdomen: normal bowel sounds Extremities: no cyanosis Microbiology Date/Time Source Procedure Growth Status 08/25/18 14:25 Blood Blood Culture - Preliminary NO GROWTH AFTER 24 HOURS Resulted 08/25/18 14:10 Blood Blood Culture - Preliminary NO GROWTH AFTER 24 HOURS Resulted 08/26/18 17:41 Urine,Clean Catch Urine Culture - Preliminary NO GROWTH Resulted Laboratory Tests 08/26/18 17:41: Urine Color Pale yellow, Urine Appearance Clear, Urine pH 7, Urine Specific [place] 1.005, Urine Protein Negative, Urine Glucose (UA) Negative, Urine Ketones Negative, Urine Blood Negative, Urine Nitrite Negative, Urine Bilirubin Negative, Urine Urobilinogen Normal, Urine Leukocyte Esterase 1+H, Urine RBC 0-2 , Urine WBC 2-4, Urine Squamous Epithelial Cells Few, Urine Bacteria Few 08/27/18 04:32: White Blood Count 5.9, Red Blood Count 4.29, Hemoglobin 9.5L, Hematocrit 30.5L, Mean Corpuscular Volume 71L, Mean Corpuscular Hemoglobin 22.2L, Mean Corpuscular Hemoglobin Concent 31.3L, Red Cell Distribution Width 16.8H, Platelet Count 184, Mean Platelet Volume 7.2, Neutrophils (%) (Auto) 55.0, Lymphocytes (%) (Auto) 32.4, Monocytes (%) (Auto) 6.1, Eosinophils (%) (Auto) 5.2H, Basophils (%) (Auto) 1.4, Reticulocyte Count 3.3H, Prothrombin Time 10.9, Prothromb Time International Ratio 1.0, Activated Partial Thromboplast Time 26, Sodium Level 142, Potassium Level 4.2, Chloride Level 107, Carbon Dioxide Level 29, Anion Gap 6, Blood Urea Nitrogen 17, Creatinine 0.9, Estimat Glomerular Filtration Rate > 60, Glucose Level 86, Calcium Level 9.3, Iron Level 16L, Total Iron Binding Capacity 524H, Percent Iron Saturation 3L, Unsaturated Iron Binding 508H, Ferritin 11, Total Bilirubin 0.8, Aspartate Amino Transf (AST/SGOT ) 24, Alanine Aminotransferase (ALT/SGPT) 21, Alkaline Phosphatase 144H, Total Protein 7.3, Albumin 3.3L, Globulin 4.0, Albumin/Globulin Ratio 0.8L, Carcinoembryonic Antigen [Pending], Vitamin B12 Level 754, Folate 15.5, Thyroid Stimulating Hormone (TSH) 3.286, Free Thyroxine 1.04 Current Medications Medications (Trade) Dose Ordered Sig/Blade Route PRN Reason Start Time Stop Time Status Last Admin Dose Admin Duloxetine HCl (Cymbalta) 40 mg DAILY ORAL 08/26/18 09:00 09/25/18 08:59 08/26/18 08:48 Hydrocortisone (Anusol HC) 25 mg TWICE A DAY RECTAL 08/26/18 10:45 09/25/18 10:44 08/26/18 17:22 Loratadine (Claritin 10mg) 10 mg BEDTIME ORAL 08/25/18 21:00 09/24/18 20:59 08/26/18 21:08 Morphine Sulfate (MS Contin) 15 mg Q12HR ORAL 08/25/18 21:45 09/01/18 21:44 08/26/18 21:08 Multivitamins (Multivitamins) 1 tab DAILY ORAL 08/26/18 09:00 09/25/18 08:59 08/26/18 08:47 Olanzapine (ZyPREXA) 5 mg TID ORAL 08/25/18 19:15 09/24/18 19:14 08/26/18 17:22 Pantoprazole (Protonix) 40 mg DAILY ORAL 08/26/18 10:45 09/25/18 10:44 08/26/18 10:51 Zolpidem Tartrate (Ambien) 5 mg HSPRN PRN ORAL Insomnia 08/25/18 19:15 09/01/18 19:14 Gato Chavez MD August 27, 2018 09:43
[2018-08-27] MEDS ORDERED: PANTOPRAZOLE SO40 MG ORAL (09:45)
[2018-08-27] MEDS ORDERED: CARAFATE1 G1 ORAL (09:45)
--- NOTE | 2018-08-27 09:54 | Immediate Post-Op Evaluation ---
Immediate Post-Op Evalulation Immediate Post-Op Evalulation Procedure: EGD, colonoscopy, polypectomy Date of Evaluation: August 27, 2018 Time of Evaluation: 09:45 IV Fluids: 0.9 NS 400 ml Blood Pressure Systolic: 114 Blood Pressure Diastolic: 84 Pulse Rate: 81 Respiratory Rate: 16 O2 Sat by Pulse Oximetry: 100 Temperature (Fahrenheit): 97.1 Pain Score (1-10): 0 Nausea: No Vomiting: No Complications none Patient Status: awake, reacts, patent Hydration Status: adequate Given Within 1 Hr of Incision: Luciana Roberts CRNA August 27, 2018 09:54
--- NOTE | 2018-08-27 16:07 | NUR ---
*-* INSURANCE *-* ALL CLINICALS HAVE BEEN FAXED TO: IPA: BARNEY LIN P: [phone] F: [phone]
[2018-08-27] MEDS ORDERED: fentaNYL 100 mcg/2 mL IV ONE (16:48)
--- NOTE | 2018-08-27 16:53 | NUR ---
NURSE NOTES: Pt discharged in stable condition to [facility]. Report given to maximilian. Discharge packed reviewed including medications, labs and vitals. Pt admitted for anemia; hemoglobin WNL on discharge. IV and arm band removed. Belongings accounted for with patient.
--- NOTE | 2018-08-27 18:00 | Procedure Note ---
DATE OF PROCEDURE: 08/27/2018 SURGEON: Vahe Chávez M.D. PROCEDURE: Upper endoscopy with biopsy and colonoscopy with snare polypectomy with biopsy. ANESTHESIA: Per Luciana BURTON. INSTRUMENT: Olympus adult flexible upper endoscope and colonoscope. INDICATION: Anemia, stool OB positive. REASON FOR PROCEDURE: The procedure, risks, benefits, and possible consequences, including hemorrhage, aspiration, perforation and infection, and alternative treatments, were explained to the patient/legal guardian by Dr. Vahe Chávez and the patient/legal guardian understood and accepted these risks. DESCRIPTION OF PROCEDURE: After informed consent was obtained and the patient was adequately sedated, Olympus upper endoscope was advanced from the mouth in to the second portion of the duodenum and retroflexion was performed in the stomach. The patient had evidence of a large hiatal hernia with associated distal esophagitis and also Nir ulceration in the stomach. Random biopsy from the antrum was obtained to rule out H. pylori infection. At this time, the upper endoscope was retrieved and the patient was turned over for colonoscopy. First, rectal exam was performed, which shows normal. Then, the scope was advanced from the rectum into the cecum documented by appendiceal orifice, ileocecal valve, and right upper quadrant palpation. Quality of prep was fair, actually overall poor. We were able to remove 5 colonic polyps from this colonoscopy examination. The largest one was in the rectum measured roughly 1.5 cm, pedunculated, removed with a hot snare polypectomy technique. There were 3 polyps in the transverse colon, all removed with the snare polypectomy technique. They were likely about 5 to 6 mm. There was one diminutive polyp in the rectum removed with the cold biopsy forceps technique. The patient had this diverticulosis in the sigmoid making this procedure challenging. We actually were about to change the scope to pediatric, but it had a break and got through, but still there was a very significant diverticulosis in the sigmoid colon. Retroflexion of rectum showed evidence of internal hemorrhoids. SUMMARY OF FINDINGS: 1. Large hiatal hernia with associated Nir ulcerations and also distal esophagitis. 2. Gastritis, status post biopsy. 3. Challenging colonoscopy given diverticulosis in the sigmoid colon. 4. Poor prep. 5. Five colonic polyps removed, see above for details. 6. Internal hemorrhoids. RECOMMENDATIONS: 1. Carafate and Protonix. 2. Followup pathology given 5 polyps in this prep. 3. We will recommend repeat colonoscopy may be possibly in one year. I want to thank, Dr. Chavez, for this kind referral. Vahe Ramona Chávez DR: CHUY JOB#: [id number] CC:
--- NOTE | 2018-08-29 12:12 | Discharge Summary ---
Discharge Summary Discharge Summary _ DATE OF ADMISSION: 08/25/2018 DATE OF DISCHARGE: 08/27/2018 DISCHARGED BY: Dr. Chavez REASON FOR ADMISSION: 62 years old female with past medical history of liver cirrhosis, GERD, psychiatric disorder, chronic pain syndrome, was sent from the shelter facility for evaluation of anemia. Patient by herself was asymptomatic. Patient reported having hemorrhoids. Patient prior was admitted to another hospital and received blood transfusion there . Upon evaluation in the emergency department she was found to have hemoglobin 6.8 , hematocrit 22. MCV 69. Troponin was negative. Pro BNP 127. Albumin 3.0. Stable electrolytes and renal parameters. Urinalysis revealed no evidence of UTI. Chest x-ray demonstrated no acute cardiopulmonary pathology. Patient subsequently was admitted for blood transfusion. CONSULTANTS: GI specialist Dr. Chávez [facility]RSE: Patient admitted to the hospital. Home medications were continued. GI consult was requested. Patient underwent transfusion total of 2 units of packed red blood cells while in the hospital. Anemia work-up revealed evidence of iron deficiency. Stool for occult blood was positive. CEA -5.9. Stable folate and B12. Patient subsequently undergone upper endoscopy with biopsy and colonoscopy with snare polypectomy with biopsy. EGD revealed large hiatal hernia with associated [place] ulceration and distal esophagitis. Gastritis status post biopsy. Challenging colonoscopy, given diverticulosis in the sigmoid colon and poor preparation. 5 colonic polyps were removed. Internal hemorrhoids noted. Patient started on Protonix and Carafate. GI recommended to repeat colonoscopy in 1 year. At the time of this dictation, pathology results still pending. GI specialist will follow-up on the final results. Prior to discharge hemoglobin 9.5 hematocrit 30.5. Anusol suppository provided. Blood cultures were negative. Urine culture revealed mixed gram-positive organism. Pain management was addressed. Supportive care provided. Cymbalta continued. Patient clinically stabilized. No further bleeding. Patient was ready for transfer back to shelter [facility] for continuation of care. Repeat colonoscopy in 1 year as recommended by GI specialist. FINAL DIAGNOSES: Anemia of iron deficiency Status post EGD and colonoscopy Large hiatal hernia Distal esophagitis Status post 5 colonic polyp removal Sigmoid diverticulosis Internal hemorrhoids with history of hemorrhoidal bleeding Liver cirrhosis Chronic back pain DISCHARGE MEDICATIONS: See Medication Reconciliation list. DISCHARGE INSTRUCTIONS: Patient was discharged to the shelter facility. Follow up with medical doctor at the facility. I have been assigned to dictate discharge summary for this account. I was not involved in the patient's management. Allie Mcclendon NP August 29, 2018 12:12
--- NOTE | 2018-08-30 19:50 | Cardiology Report ---
APPROVED REPORT EKG Measurement Heart [id number] Normal sinus rhythm Septal infarct, age undetermined Abnormal ECG
== END 2018-08-27 16:49 | DRG 244 ==
LOC: EDBD 13:48 → EDBEDREQ 14:03 → EMR 14:30 → 4E 15:45 → EDBEDREQ 15:54
PROC: 30233N1 Transfusion of Nonautologous Red Blood Cells into Peripheral Vein, Percutaneous Approach (ICD-10-PCS; 2018-08-25)
PROC: 0DBL8ZZ Excision of Transverse Colon, Via Natural or Artificial Opening Endoscopic (ICD-10-PCS; 2018-08-27)
PROC: 0DB78ZX Excision of Stomach, Pylorus, Via Natural or Artificial Opening Endoscopic, Diagnostic (ICD-10-PCS; principal; 2018-08-27 08:51)
PROC: 0DBP8ZZ Excision of Rectum, Via Natural or Artificial Opening Endoscopic (ICD-10-PCS; 2018-08-27 08:51)
DX: K57.31 Diverticulosis of large intestine without perforation or abscess with bleeding (principal); K74.60 Unspecified cirrhosis of liver; D50.0 Iron deficiency anemia secondary to blood loss (chronic); M54.9 Dorsalgia, unspecified; K21.9 Gastro-esophageal reflux disease without esophagitis; Z88.8 Allergy status to other drugs, medicaments and biological substances; K44.9 Diaphragmatic hernia without obstruction or gangrene; D50.9 Iron deficiency anemia, unspecified; G89.29 Other chronic pain; K20.8 Other esophagitis; K25.9 Gastric ulcer, unspecified as acute or chronic, without hemorrhage or perforation; K63.5 Polyp of colon; K64.8 Other hemorrhoids
CPT/HCPCS: 36415; 71045; 80053; 81001; 81003; 82270; 82378; 82550; 82553; 82607; 82728; 82746; 83540; 83550; 83605; 83880; 84439; 84443; 84484; 85007; 85025; 85044; 85610; 85730; 86850; 86900; 86901; 86920; 87040; 87081; 87086; 93005; 94003; 94150; 96361; 96374; 96376; 99285

== ENCOUNTER 2018-09-27 14:24 | Emergency (ER) | payer MEDICAID ==
[~2018-09-27] VITALS: Ht 165.1 cm; Wt 65.8 kg
[~2018-09-27 14:24] MED LIST: ALBUTEROL SULF8.5 GM INH; AMBIEN5 MG ORAL; ATIVAN0.5 MG ORAL; CARAFATE1 G1 ORAL; FUROSEMIDE20 M1 ORAL; LACTULOSE20 GM/301 ORAL; LORATADINE10 M1 PO; MILK OF MA400 MG/51 ORAL; MORPHINE S10 MG/5 ML ORAL; MULTIVITAMINS1 EAC8 ORAL; PANTOPRAZOLE SO40 MG ORAL; TUMS200 M1 PO; ZOFRAN4 M3 ORAL; ZYPREXA5 MG ORAL
[2018-09-27 14:35] VITALS: BP 128/70
--- NOTE | 2018-09-27 14:35 | NUR ---
ED Nurse Note: PT FROM A [facility] BROUGHT IN BY AMBULANCE DUE TO LOW HGB OF 6.9 AND FATIGUE. PER PT, THE BLOOD WORK WAS TAKEN LAST NIGHT. HX OF LIVER CIRHOSIS. DENIES DIZZINESS OR CP. PT IS AAO X4, AMBULATORY AND ABLE TO FOLLOW COMMANDS. SKIN IS PALE BUT WARM TO TOUCH.
[2018-09-27] MEDS ORDERED: ATIVAN1 MG ORAL (14:37)
[2018-09-27] MEDS ORDERED: CYCLOBENZAPRINE10 MG ORAL (14:37)
[2018-09-27] MEDS ORDERED: GABAPENTIN600 MG ORAL (14:37)
--- NOTE | 2018-09-27 14:43 | Emergency Room Report ---
History of Present Illness General Chief Complaint: Abnormal Labs Source: EMS Present Illness HPI Patient is a 62-year-old female sent in from [facility] for increased generalized weakness. Patient was noted to have recent abnormal labs which showed some anemia. She reports having prior history of cirrhosis. She denies any definite bleeding. She reports having prior history of diverticulosis and had recent colonoscopy which showed some bleeding. She reports having prior paracentesis in the past. She denies any fever. She denies any recent trauma. She reports having chronic pain to her neck back and knees. Allergies: Coded Allergies: PROPOXYPHENE (Verified Allergy, Unknown, 08/25/18) Patient History Past Medical History: see triage record Reviewed Nursing Documentation: PMH: Agreed; PSxH: Agreed Nursing Documentation-PMH Past Medical History: No History, Except For Hx Cardiac Problems: No Hx Hypertension: Yes Hx Cancer: No Hx Gastrointestinal Problems: Yes Hx Neurological Problems: No Review of Systems All Other Systems: negative except mentioned in HPI Physical Exam Vital Signs Date Time Temp Pulse Resp B/P (MAP) Pulse Ox O2 Delivery O2 Flow Rate FiO2 09/27/18 14:25 97.9 90 16 129/84 (99) 96 Room Air Sp02 EP Interpretation: reviewed, normal General Appearance: normal inspection, well appearing, no apparent distress, alert, GCS 15 Head: atraumatic ENT: normal ENT inspection, hearing grossly normal, normal voice Neck: normal inspection, full range of motion, supple, no bony tend Respiratory: normal inspection, lungs clear, normal breath sounds, no respiratory distress, no retraction, no wheezing Cardiovascular #1: regular rate, rhythm, no edema Gastrointestinal: normal bowel sounds, soft, no guarding, no hernia, distended Genitourinary: no CVA tenderness Musculoskeletal: normal inspection, back normal, normal range of motion Neurologic: normal inspection, alert, oriented x3, responsive, console attendant III-XII nml as tested, speech normal Psychiatric: normal inspection, judgement/insight normal, mood/affect normal Skin: normal inspection, normal color, no rash Medical Decision Making Diagnostic Impression: Primary Impression: Anemia Additional Impression: Diverticular hemorrhage ER Course Patient presented for generalized weakness. Differential diagnosis include was not limited to anemia, GI bleeding, hypokalemia among others. Because of complexity of patient's case laboratory testing and imaging studies were ordered.Patient was noted to have some significant anemia. Patient had previously been transfused up to a hemoglobin of 9.5. Patient does not describe any definite bleeding. Patient will be transferred for further evaluation and monitoring of blood counts. Patient appears to be stable for transfer. Patient was also discussed with Dr. Ford who agrees to accept the patient as transfer. Labs Test 09/27/18 14:47 White Blood Count 5.1 K/UL (4.8-10.8) Red Blood Count 3.83 M/UL (4.20-5.40) Hemoglobin 7.5 G/DL (12.0-16.0) Hematocrit 24.9 % (37.0-47.0) Mean Corpuscular Volume 65 FL (80-99) Mean Corpuscular Hemoglobin 19.5 PG (27.0-31.0) Mean Corpuscular Hemoglobin Concent 30.1 G/DL (32.0-36.0) Red Cell Distribution Width 17.0 % (11.6-14.8) Platelet Count 174 K/UL (150-450) Mean Platelet Volume 6.2 FL (6.5-10.1) Neutrophils (%) (Auto) % (45.0-75.0) Lymphocytes (%) (Auto) % (20.0-45.0) Monocytes (%) (Auto) % (1.0-10.0) Eosinophils (%) (Auto) % (0.0-3.0) Basophils (%) (Auto) % (0.0-2.0) Differential Total Cells Counted 100 Neutrophils % (Manual) 59 % (45-75) Lymphocytes % (Manual) 28 % (20-45) Monocytes % (Manual) 9 % (1-10) Eosinophils % (Manual) 3 % (0-3) Basophils % (Manual) 1 % (0-2) Band Neutrophils 0 % (0-8) Platelet Estimate Adequate Platelet Morphology Normal Polychromasia 1+ Hypochromasia 3+ Anisocytosis 2+ Microcytosis 3+ Prothrombin Time 11.2 SEC (9.30-11.50) Prothromb Time International Ratio 1.1 (0.9-1.1) Activated Partial Thromboplast Time 28 SEC (23-33) Sodium Level 140 MMOL/L (136-145) Potassium Level 3.7 MMOL/L (3.5-5.1) Chloride Level 102 MMOL/L (98-107) Carbon Dioxide Level 32 MMOL/L (21-32) Anion Gap 6 mmol/L (5-15) Blood Urea Nitrogen 19 mg/dL (7-18) Creatinine 1.1 MG/DL (0.55-1.30) Estimat Glomerular Filtration Rate 50.3 mL/min (>60) Glucose Level 139 MG/DL (74-106) Calcium Level 9.2 MG/DL (8.5-10.1) Total Bilirubin 0.5 MG/DL (0.2-1.0) Aspartate Amino Transf (AST/SGOT) 23 U/L (15-37) Alanine Aminotransferase (ALT/SGPT) 17 U/L (12-78) Alkaline Phosphatase 183 U/L (46-116) Troponin I 0.000 ng/mL (0.000-0.056) Total Protein 7.6 G/DL (6.4-8.2) Albumin 3.4 G/DL (3.4-5.0) Globulin 4.2 g/dL Albumin/Globulin Ratio 0.8 (1.0-2.7) Thyroid Stimulating Hormone (TSH) 2.093 uiU/mL (0.358-3.740) Last Vital Signs Date Time Temp Pulse Resp B/P (MAP) Pulse Ox O2 Delivery O2 Flow Rate FiO2 09/27/18 14:25 97.9 90 16 129/84 (99) 96 Room Air Status: unchanged Disposition: XFER SHT-TRM HOSP Condition: Stable Jacinto Mcgee MD Sep 27, 2018 14:43
[2018-09-27] MEDS ORDERED: Morphine Sulfate 2mg/ml Inj(IV/IM USE ONLY) IVP ONE (14:45)
[2018-09-27] MEDS ORDERED: PAROXETINE HCL20 MG PO (15:09)
[2018-09-27] MEDS ORDERED: ACETAMINOPHEN325 M1 ORAL (15:09)
--- NOTE | 2018-09-27 15:10 | NUR ---
ED Nurse Note: COLLECTED BLOOD THEN SENT TO LAB.
[2018-09-27 15:13] LABS: HEMATOCRIT 24.9 % (37.0-47.0); HEMOGLOBIN 7.5 G/DL (12.0-16.0); MEAN CORPUSCULAR VOLUME 65 FL (80-99); PLATELET COUNT 174 K/UL (150-450); RED BLOOD COUNT 3.83 M/UL (4.20-5.40); WHITE BLOOD COUNT 5.1 K/UL (4.8-10.8)
--- NOTE | 2018-09-27 15:20 | NUR ---
ED Nurse Note: PT STATES SHE NEED A MEDICATION FOR HER ANXIETY. DR NAILS NOTIFIED WITH NO NEW ORDERS.
--- NOTE | 2018-09-27 15:23 | NUR ---
ED Nurse Note: PT IS AWARE OF POSSIBLE ADMISSION. STATES THAT SHE WOULD AGREE TO PUT A HOSPIAL GOWN ON BEFORE GOING UP TO THE FLOOR.
[2018-09-27 15:26] LABS: INR 1.1 (0.9-1.1)
[2018-09-27 15:28] LABS: ANION GAP 6 mmol/L (5-15); BLOOD UREA NITROGEN 19 mg/dL (7-18); CALCIUM 9.2 MG/DL (8.5-10.1); CARBON DIOXIDE 32 MMOL/L (21-32); CHLORIDE 102 MMOL/L (98-107); CREATININE 1.1 MG/DL (0.55-1.30); POTASSIUM 3.7 MMOL/L (3.5-5.1); SODIUM 140 MMOL/L (136-145)
[2018-09-27 15:40] LABS: ALANINE AMINOTRANSFERASE 17 U/L (12-78); ALBUMIN 3.4 G/DL (3.4-5.0); ALBUMIN/GLOBULIN RATIO 0.8 (1.0-2.7); ALKALINE PHOSPHATASE 183 U/L (46-116); ASPARTATE AMINO TRANSFERASE 23 U/L (15-37); BILIRUBIN,TOTAL 0.5 MG/DL (0.2-1.0)
[2018-09-27 16:30] VITALS: BP 114/80
--- NOTE | 2018-09-27 18:33 | NUR ---
ED Nurse Note: DR NAILS NOTIFIED OF PT ASKING FOR MORE PAIN MEDICATION. VSS.
[2018-09-27] MEDS ORDERED: Morphine Sulfate 4mg/ml Inj (IV USE ONLY) IVP ONE (18:45)
--- NOTE | 2018-09-27 18:51 | NUR ---
ED Nurse Note: DR JESU SNEED FOR PT TO EAT. PROVIDED WITH SANDWICH, WATER AND MILK.
--- NOTE | 2018-09-27 19:06 | NUR ---
HAND-OFF: Report given to [JIM BERMUDEZ].
--- NOTE | 2018-09-27 19:28 | NUR ---
ED Nurse Note: Received report from Gisele BERMUDEZ. Pt in bed resting, awake. Introductions made and pt reminded of being transferred to another hospital but pt does not want to transfer. Notified CN to make registration aware. Awaiting feedback on transfer progression. Will continue to montitor.
[2018-09-27 19:30] VITALS: BP 121/72
[2018-09-27 21:30] VITALS: BP 118/74
[2018-09-27 21:51] VITALS: BP 118/74
--- NOTE | 2018-09-27 21:52 | NUR ---
ED Nurse Note: Pt cleared by health care Provider for transfer to [facility]. Transfer packet was given and explained to pt/ abulance personnel and verbalized understanding of teachings. Pt is AAO x4, ambulatory but left on gurney and left with all personal belongings.
--- NOTE | 2018-09-28 16:05 | Cardiology Report ---
APPROVED REPORT EKG Measurement Heart [id number] Sinus tachycardia Possible Left atrial enlargement Prolonged QT Abnormal ECG
== END 2018-09-27 21:52 | disposition short-term general hospital (02) ==
LOC: EDBD 14:24 → EDUNIT# 14:24 → EDBEDREQ 15:02 → EMR 15:25 → EDBEDREQ 16:45 → EMR 21:52
DX: D64.9 Anemia, unspecified (principal); K92.2 Gastrointestinal hemorrhage, unspecified; Z88.8 Allergy status to other drugs, medicaments and biological substances
CPT/HCPCS: 36415; 80053; 84443; 84484; 85007; 85025; 85610; 85730; 86850; 86900; 86901; 87081; 93005; 96374; 96375; 96376; 99284; J2270; S0028

== ENCOUNTER 2019-01-07 23:46 | Inpatient (IN) | payer MEDICAID ==
[~2019-01-07] VITALS: Ht 170.2 cm; Wt 82.1 kg
[~2019-01-07 23:46] MED LIST changes: +ACETAMINOPHEN325 M1 ORAL; +ATIVAN1 MG ORAL; +CYCLOBENZAPRINE10 MG ORAL; +GABAPENTIN600 MG ORAL; +PAROXETINE HCL20 MG PO
[2019-01-07 23:50] VITALS: BP 112/86
--- NOTE | 2019-01-07 23:55 | NUR ---
ED Nurse NOTE: Pt brought in by ambulance from [facility], staff reported pt was increasingly combative and resistant to care. Pt has hx of dementia and psych, states " they're trying to kill me" pt is alert and oriented to self, place and situation. Pt is confused. VSS. no signs of distress. Will continue to monitor
--- NOTE | 2019-01-08 00:20 | NUR ---
[facility]
--- NOTE | 2019-01-08 00:22 | Emergency Room Report ---
History of Present Illness General Chief Complaint: General Complaint Source: Patient, EMS Present Illness HPI Patient presents by paramedics from nursing facility patient was reported to be agitated And was unable to be cared for at the facility Here the patient does express some delusional thought process She denies any headache denies any chest pain Patient has divergence of thought process and is difficult to focus history History of present illness does remain limited secondary to this unknown regarding fevers unknown regarding trauma Allergies: Coded Allergies: PROPOXYPHENE (Verified Allergy, Unknown, 08/25/18) Patient History Limited by: medical condition Past Medical History: see triage record Last Menstrual Period: na Reviewed Nursing Documentation: PMH: Agreed; PSxH: Agreed Nursing Documentation-PMH Past Medical History: No History, Except For Hx Cardiac Problems: No Hx Hypertension: Yes Hx Cancer: No Hx Gastrointestinal Problems: Yes Hx Neurological Problems: No Review of Systems All Other Systems: limited Physical Exam Vital Signs Date Time Temp Pulse Resp B/P (MAP) Pulse Ox O2 Delivery O2 Flow Rate FiO2 01/07/19 23:44 98.4 91 16 112/86 (95) 98 Room Air Sp02 EP Interpretation: reviewed, normal General Appearance: no apparent distress - However at times appears agitated Head: normocephalic, atraumatic Eyes: bilateral eye PERRL, bilateral eye EOMI ENT: dry mucus membranes Neck: supple, thyroid normal Respiratory: lungs clear, no respiratory distress, no retraction Cardiovascular #1: regular rate, rhythm Gastrointestinal: non tender, soft Musculoskeletal: normal inspection Neurologic: alert, oriented x3, responsive Psychiatric: anxious Skin: no rash, palpation normal Lymphatic: no adenopathy Medical Decision Making Diagnostic Impression: Primary Impression: Encephalopathy acute ER Course Multiple differentials including but not limited to neurological, metabolic, infectious pathology entertained Patient's blood work reveals a mildly elevated ammonia level white blood cell count is normal patient remains calm throughout her stay here However will require further inpatient care Labs Test 01/08/19 00:15 01/08/19 01:30 White Blood Count 7.4 K/UL (4.8-10.8) Red Blood Count 5.54 M/UL (4.20-5.40) Hemoglobin 16.2 G/DL (12.0-16.0) Hematocrit 47.4 % (37.0-47.0) Mean Corpuscular Volume 86 FL (80-99) Mean Corpuscular Hemoglobin 29.2 PG (27.0-31.0) Mean Corpuscular Hemoglobin Concent 34.1 G/DL (32.0-36.0) Red Cell Distribution Width 17.5 % (11.6-14.8) Platelet Count 234 K/UL (150-450) Mean Platelet Volume 8.2 FL (6.5-10.1) Neutrophils (%) (Auto) 60.2 % (45.0-75.0) Lymphocytes (%) (Auto) 24.7 % (20.0-45.0) Monocytes (%) (Auto) 9.4 % (1.0-10.0) Eosinophils (%) (Auto) 4.1 % (0.0-3.0) Basophils (%) (Auto) 1.6 % (0.0-2.0) Ammonia 40 umol/L (11-32) Sodium Level 131 MMOL/L (136-145) Potassium Level 4.6 MMOL/L (3.5-5.1) Chloride Level 94 MMOL/L (98-107) Carbon Dioxide Level 28 MMOL/L (21-32) Anion Gap 9 mmol/L (5-15) Blood Urea Nitrogen 45 mg/dL (7-18) Creatinine 1.5 MG/DL (0.55-1.30) Estimat Glomerular Filtration Rate 35.1 mL/min (>60) Glucose Level 116 MG/DL (74-106) Calcium Level < 5.0 MG/DL (8.5-10.1) Total Bilirubin 1.0 MG/DL (0.2-1.0) Aspartate Amino Transf (AST/SGOT) 31 U/L (15-37) Alanine Aminotransferase (ALT/SGPT) 19 U/L (12-78) Alkaline Phosphatase 162 U/L (46-116) Total Creatine Kinase 83 U/L (26-308) Creatine Kinase MB 1.8 NG/ML (0.0-3.6) Creatine Kinase MB Relative Index 2.1 Total Protein 8.6 G/DL (6.4-8.2) Albumin 3.7 G/DL (3.4-5.0) Globulin 4.9 g/dL Albumin/Globulin Ratio 0.8 (1.0-2.7) Salicylates Level 0.7 ug/mL (2.8-20) Acetaminophen Level < 2 MCG/ML (10-30) Serum Alcohol < 3 mg/dL Rhythm Strip Diag. Results EP Interpretation: yes Rate: 80 Rhythm: NSR, no PVC's, no ectopy Last Vital Signs Date Time Temp Pulse Resp B/P (MAP) Pulse Ox O2 Delivery O2 Flow Rate FiO2 01/07/19 23:50 91 16 Room Air 01/07/19 23:50 98.4 112/86 98 Status: improved Disposition: ADMITTED INPATIENT Condition: Serious Nba Forde DO Jan 08, 2019 00:22
[2019-01-08 00:33] LABS: BASOPHILS % (AUTO) 1.6 % (0.0-2.0); EOSINOPHILS % (AUTO) 4.1 % (0.0-3.0); HEMATOCRIT 47.4 % (37.0-47.0); HEMOGLOBIN 16.2 G/DL (12.0-16.0); LYMPHOCYTES % (AUTO) 24.7 % (20.0-45.0); MEAN CORPUSCULAR VOLUME 86 FL (80-99); MONOCYTES % (AUTO) 9.4 % (1.0-10.0); NEUTROPHILS % (AUTO) 60.2 % (45.0-75.0); PLATELET COUNT 234 K/UL (150-450); RED BLOOD COUNT 5.54 M/UL (4.20-5.40); RED CELL DISTRIBUTION WIDTH 17.5 % (11.6-14.8); WHITE BLOOD COUNT 7.4 K/UL (4.8-10.8)
[2019-01-08] MEDS ORDERED: SPIRONOLACTONE50 MG ORAL (00:41)
[2019-01-08] MEDS ORDERED: INDERAL LA60 MG ORAL (00:41)
[2019-01-08] MEDS ORDERED: ASCORBIC ACID500 MG ORAL (00:41)
[2019-01-08] MEDS ORDERED: FERROUS SULFAT325 MG ORAL (00:41)
[2019-01-08] MEDS ORDERED: PREPARATION H C26 GM RC (00:45)
[2019-01-08] MEDS ORDERED: POTASSIUM CHLO10 MEQ ORAL (00:45)
[2019-01-08] MEDS ORDERED: SENNA8.6 M2 PO (00:45)
--- NOTE | 2019-01-08 01:55 | NUR ---
TRANSFER TO FLOOR: Patient transferred to as ordered, per Dr Del Rio. Report given to LARA Nguyen . Belongings and medications given to . Family and or S/O informed of transfer.
--- NOTE | 2019-01-08 01:58 | NUR ---
ED Nurse Note: Daughter's number Fani [phone]
[2019-01-08 02:00] VITALS: BP 152/89
[2019-01-08 02:01] LABS: ANION GAP 9 mmol/L (5-15); BLOOD UREA NITROGEN 45 mg/dL (7-18); CARBON DIOXIDE 28 MMOL/L (21-32); CHLORIDE 94 MMOL/L (98-107); CREATININE 1.5 MG/DL (0.55-1.30); POTASSIUM 4.6 MMOL/L (3.5-5.1); SODIUM 131 MMOL/L (136-145)
[2019-01-08 02:14] LABS: ALANINE AMINOTRANSFERASE 19 U/L (12-78); ALBUMIN 3.7 G/DL (3.4-5.0); ALBUMIN/GLOBULIN RATIO 0.8 (1.0-2.7); ALKALINE PHOSPHATASE 162 U/L (46-116); ASPARTATE AMINO TRANSFERASE 31 U/L (15-37); CKMB 1.8 NG/ML (0.0-3.6); CREATINE KINASE 83 U/L (26-308)
[2019-01-08 02:15] LABS: CALCIUM < 5.0 MG/DL (8.5-10.1)
--- NOTE | 2019-01-08 03:00 | NUR ---
NURSE NOTES: ADMITTED 63 YEAR OLD FEMALE TO ROOM 411 BED 2 VIA GURNEY FROM EMERGENCY DEPARTMENT WITH ADMITTING DIAGNOSIS ENCEPHALOPATHY UNDER THE CARE OF DR. MENDOZA. IV INTACT TO RIGHT AC/GAUGE 22, NO REDNESS/SWELLING NOTED, FLUSHED WITHOUT DIFFICULTY. PATIENT AWAKE, ALERT/ORIENTED X3, VERBALLY RESPONSIVE, COMPLAINTS OF CHRONIC BACK PAIN/TOLERABLE/06/20. NO SIGNS AND SYMPTOMS OF ACUTE CARDIO RESPIRATORY DISTRESS/SHORTNESS OF BREATH, DENIES CHEST PAIN, BILATERAL LOWER EXTREMITIES EDEMATOUS/NON PITTED, ENCOURAGED ELEVATION, PATIENT VERBALIZED UNDERSTANDING. NO COMPLAINT OF GI DISCOMFORT, BATHROOM PRIVILEGES, NO N/V/D, LAST BOWEL MOVEMENT 01/06/19 (HISTORY OF CONSTIPATION). PATIENT STATED THAT AT SNF SHE HAS USE OF CANE/WALKER/WHEELCHAIR, ENCOURAGED PATIENT TO UTILIZE CALL LIGHT FOR ASSISTANCE, VERBALIZED UNDERSTANDING. ORIENTATED PATIENT TO ROOM/ENVIRONMENT/MEDICAL EQUIPMENT. SIDE RAILS UP X3/BED IN LOWEST POSITION FOR SAFETY, CALL LIGHT WITHIN REACH AT ALL TIMES. HOURLY ROUNDING FOR SAFETY/NEEDS. NAD.
[2019-01-08 04:00] VITALS: BP 135/75
--- NOTE | 2019-01-08 04:00 | NUR ---
NURSE NOTES: TELEPHONE CALL PLACED TO DR. MENDOZA FOR ADMITTING ORDERS, LEFT MESSAGE WITH KRISTI, RADIO MACHINIST, WILL AWAIT RETURN CALL. PATIENT RESTING WELL. NAD.
[2019-01-08] MEDS ORDERED: PAROXETINE HCL20 MG PO (04:13)
--- NOTE | 2019-01-08 05:30 | NUR ---
NURSE NOTES: FOLLOW UP CALL PLACED TO DR. MENDOZA REGARDING ADMITTING ORDERS, SPOKE TO KRISTI/CATERING SERVER, WILL AWAIT RETURN CALL. CRISTA.
[2019-01-08] MEDS ORDERED: LORazepam 1mg tab ORAL PRN (07:30)
--- NOTE | 2019-01-08 07:35 | NUR ---
NURSE NOTES: Received report from GIOVANI Zuniga. Patient A&Ox3, confused. Wandering in [address], needed to be redirected. On room air, no signs of distress or labored breathing. IV intact, patent, and saline locked. Redirected to bed, sitting. Bed in lowest position with call light in reach. Will continue with plan of care.
[2019-01-08 08:00] VITALS: BP 129/44
[2019-01-08 12:00] VITALS: BP 126/72
[2019-01-08] MEDS ORDERED: Naloxone 0.4mg/ml Inj IVP SCH ×2 (14:15→16:15)
[2019-01-08] MEDS ORDERED: 1/2 NS 1000ml IV ONE (14:41)
[2019-01-08 16:00] VITALS: BP 127/91
--- NOTE | 2019-01-08 19:22 | NUR ---
HAND-OFF: Report given to LARA Yeager.
[2019-01-08 20:00] VITALS: BP 117/79
--- NOTE | 2019-01-08 22:00 | History and Physical Report ---
DATE OF ADMISSION: 01/08/2019 HISTORY OF PRESENT ILLNESS: This is a 63-year-old white female who came to the emergency room from assisted where she was altered and confused, has been wandering in the other resident's room. The patient is currently kind of lethargic, opens her eyes, go back to sleep, PAST MEDICAL HISTORY: Cirrhosis, chronic pain syndrome, arthritis. MEDICATIONS: She is taking morphine for severe pain. ALLERGIES: NKA. MEDICATIONS: See the list. PHYSICAL EXAMINATION: GENERAL: The patient is elderly female, responsive, nonverbal, lethargic. VITAL SIGNS: Blood pressure is 120/70, pulse 74, and respirations 18 to 24, temperature no fever. SKIN: Good skin turgor. HEENT: AT/NC. EOMI. PERRLA. NECK: Supple. No JVD. CHEST: Bilaterally clear. CARDIOVASCULAR: Regular rhythm. ABDOMEN: Soft. Positive bowel sounds. Nontender. EXTREMITIES: CCE. NEUROLOGICAL: Generalized weakness. ASSESSMENT: 1. Altered mental status. 2. Depression. 3. Psychosis. 4. History of chronic pain. 5. Cirrhosis. PLAN: 1. Admit to medical floor. 2. Consider psych consult. 3. Pain management consult. 4. . Alejandro Del Rio M.D. DR: Casper JOB#: [id number] CC:
[2019-01-09] VITALS: BP 125/59
[2019-01-09 04:00] VITALS: BP 118/79
--- NOTE | 2019-01-09 07:47 | NUR ---
HAND-OFF: Report given to LARA Lovett.
[2019-01-09 08:00] VITALS: BP 131/87
--- NOTE | 2019-01-09 08:00 | NUR ---
NURSE NOTES: received pt in bed, asleep, no sign of distress noted. Patient receives IVF through RFA access, no sign of infiltration noted. Bed locked at the lowest position possible, call light within easy reach, siderails up x3. Will continue to monitor pt and follow up with the plan of care.
[2019-01-09] MEDS ORDERED: Morphine IR 15mg tab ORAL PRN (11:30)
--- NOTE | 2019-01-09 11:33 | Consultation ---
History of Present Illness General Date patient seen: Jan 09, 2019 Present Illness Allergies: Coded Allergies: PROPOXYPHENE (Verified Allergy, Unknown, 08/25/18) Medication History Scheduled Ascorbic Acid* (Ascorbic Acid*), 500 MG ORAL TWICE A DAY, (Reported) Cyclobenzaprine Hcl* (Flexeril*), 10 MG ORAL BID, (Reported) Ferrous Sulfate* (Ferrous Sulfate*), 325 MG ORAL TWICE A DAY, (Reported) Furosemide* (Lasix*), 40 MG ORAL BID, (Reported) Gabapentin* (Gabapentin*), 600 MG ORAL TWICE A DAY, (Reported) Lactulose (Lactulose*), 30 ML ORAL DAILY, (Reported) Loratadine (Loratadine), 10 MG PO DAILY, (Reported) Lorazepam* (Ativan*), 0.5 MG ORAL BID, (Reported) Multivitamin With Minerals (Multivitamins With Minerals*), 1 TAB ORAL DAILY, ( Reported) Olanzapine* (Zyprexa*), 5 MG ORAL THREE TIMES A DAY, (Reported) Pantoprazole* (Pantoprazole*), 40 MG ORAL DAILY Paroxetine Hcl* (Paxil*), 20 MG PO EVENING, (Reported) Paroxetine Hcl* (Paxil*), 40 MG PO MORNING, (Reported) Potassium Chloride* (K-Dur*), 10 MEQ ORAL DAILY, (Reported) Propranolol Hcl* (Inderal La*), 10 MG ORAL BID, (Reported) Sennosides (Senna), 8.6 MG PO BEDTIME, (Reported) Spironolactone* (Aldactone*), 200 MG ORAL BID, (Reported) Sucralfate* (Carafate*), 1 GM ORAL FOUR TIMES A DAY Scheduled PRN Acetaminophen* (Acetaminophen 325MG Tablet*), 650 MG ORAL Q4H PRN for Pain Scale (3-5), (Reported) Albuterol Sulfate* (Albuterol Sulfate Mdi*), 2 PUFF INH Q6H PRN for Shortness of Breath, (Reported) Calcium Carbonate (Tums), 4 TAB PO DAILY PRN for heartburn, (Reported) Lorazepam* (Ativan*), 0.5 MG ORAL BEDTIME PRN for For Anxiety, (Reported) Magnesium Hydroxide* (Milk Of Magnesia*), 10 ML ORAL DAILY PRN for Constipation, (Reported) Morphine 10mg/5ml Oral Soln* (Morphine 10mg/5ml Oral Soln*), 2.5 ML ORAL EVERY 2 HOURS PRN for For Pain, (Reported) Morphine 10mg/5ml Oral Soln* (Morphine 10mg/5ml Oral Soln*), 15 MG ORAL BID PRN for For Pain, (Reported) Ondansetron* (Zofran*), 4 MG ORAL Q4HR PRN for Nausea & Vomiting, (Reported) Phenyleph/Pramoxin/Glycr/W.pet (Preparation H Cream), 1 APPL RC DAILY PRN for HEMORRHOIDS, (Reported) Zolpidem Tartrate* (Ambien*), 5 MG ORAL BEDTIME PRN for Insomnia, (Reported) Patient History Healthcare decision maker SELF, GRACE PETERSEN, IF UNABLE, PHYLLIS RYAN, DAUGHTER Resuscitation status Do Not Resuscitate Advanced Directive on File N/A Physical Exam Last 24 Hour Vital Signs Date Time Temp Pulse Resp B/P (MAP) Pulse Ox O2 Delivery O2 Flow Rate FiO2 01/09/19 09:00 Room Air 01/09/19 08:00 98.6 91 16 131/87 (102) 97 01/09/19 04:00 98.1 85 19 118/79 (92) 95 01/09/19 00:00 98.8 81 19 125/59 (81) 95 01/08/19 21:00 Room Air 01/08/19 20:00 97.5 85 18 117/79 (92) 95 01/08/19 16:00 98.1 81 15 127/91 (103) 98 01/08/19 12:00 98.3 78 20 126/72 (90) 97 Intake and Output 01/08/19 01/09/19 19:00 07:00 Intake Total 945 ml 240 ml Balance 945 ml 240 ml Intake Oral 720 ml 240 ml IV Total 225 ml # Voids 1 1 # Bowel Movements 2 Laboratory Tests Test 01/08/19 14:22 Arterial Blood pH 7.394 (7.350-7.450) Arterial Blood Partial Pressure CO2 46.9 mmHg (35.0-45.0) H Arterial Blood Partial Pressure O2 72.6 mmHg (75.0-100.0) L Arterial Blood HCO3 28.0 mmol/L (22.0-26.0) H Arterial Blood Oxygen Saturation 93.9 % (95-100) L Arterial Blood Base Excess 2.5 (-2-2) H Tate Test Positive Height (Feet): 5 Height (Inches): 7.00 Weight (Pounds): 181 Medications Current Medications Medications (Trade) Dose Ordered Sig/Blade Route PRN Reason Start Time Stop Time Status Last Admin Dose Admin Acetaminophen (Tylenol) 650 mg Q6H PRN ORAL Mild Pain/Temp > 100.5 01/08/19 07:30 02/07/19 07:29 Lorazepam (Ativan) 1 mg Q6H PRN ORAL For Anxiety 01/08/19 07:30 01/15/19 07:29 01/08/19 09:23 Sodium Chloride 1,000 ml @ 75 mls/hr [id number] IV 01/08/19 07:30 02/07/19 07:29 01/09/19 04:34 Assessment/Plan Assessment/Plan: (1) Abdominal pain (2) Liver cirrhosis (3) Low back pain (4) B/L Knee pain and OA (5) Altered mental status seen dictated Antonio Jhaveri Jan 09, 2019 11:33
[2019-01-09] MEDS ORDERED: Morphine Sulfate 10mg/5ml Oral Soln ud ORAL PRN (11:45)
[2019-01-09 12:00] VITALS: BP 140/82
[2019-01-09] MEDS: Diclofenac 1% Gel 100gm TOPIC SCH ×3 (13:02→21:57)
[2019-01-09 16:00] VITALS: BP 113/71
--- NOTE | 2019-01-09 16:15 | Consultation ---
DATE OF CONSULTATION: 01/09/2019 PAIN MANAGEMENT CONSULTATION CONSULTING PHYSICIAN: Tasha Gonzalez M.D. REFERRING PHYSICIAN: Joshua Del Rio M.D. PHYSICIAN [place] PILOT: Rafal Garcia CHIEF COMPLAINT: Abdominal pain, low back pain, bilateral knee pain. HISTORY OF PRESENT ILLNESS: This is a 63-year-old female, who is being seen on the Med/Surg floor of [facility] for initial pain management consultation. The patient was admitted under the care of Dr. Del Rio from [facility] due to altered mental status and we were consulted so that the patient would have adequate pain control while here in the hospital. At this time, the patient is in bed, awake, and conversing; however, falls back to sleep at times. She answered all the questions to the best of her abilities; however, is very poor historian. Discussed with her daughter, Fani, phone number #[phone] about the patient's current condition. The patient has a history of liver cirrhosis and was on hospice and taken off hospice about 2 months ago. She also has low back pain and was getting morphine extended release 15 mg twice a day, which was recently increased to 30 mg as well as morphine solution as needed 2.5 mg every 2 hours, which were continued by Dr. Del Rio in the nursing facility. At this time, the patient is in bed. She denies pain however is having swelling in her knees and reports that the pain is moderate at times. Discussed with daughter in detail about the morphine extended release that at this time due to the patient's current status not being stable, we will not restart it. Once the patient is stabilized, then we will reassess if the morphine extended will be continued. We will start the patient on morphine immediate release, as needed medications, the patient has something on-board for pain and order x-rays of the bilateral knees due to the swelling. PAST MEDICAL HISTORY: Cirrhosis, low back pain, bilateral knee pain. PAST SURGICAL HISTORY: Denies. SOCIAL HISTORY: History of alcohol abuse. Denies IV drug abuse and tobacco use. ALLERGIES: Propoxyphene. MEDICATIONS: Morphine, extended-release morphine, ascorbic acid, Flexeril, ferrous sulfate, Lasix, gabapentin, lactulose, loratadine, Ativan, multivitamin, Zyprexa, pantoprazole, Paxil, K-Dur, Inderal, Senna, Aldactone, Carafate Tylenol, albuterol, TUMS, Ativan, magnesium, Zofran, Ambien. REVIEW OF SYSTEMS: Denies rash, fever, chills, sweating, dizziness, drowsiness, blurred vision, sore throat, or change in weight. No shortness of breath, chest pain, or cough. No nausea, vomiting, diarrhea, or blood in the stool or urine. No bowel or bladder incontinence. No dysuria. Complaining of low back pain and abdominal pain. PHYSICAL EXAMINATION: GENERAL: Alert, awake, and oriented. VITAL SIGNS: Blood pressure 131/87, heart rate 91, oxygen saturation 97%, respiratory rate 16, and temperature 98.6 degrees Fahrenheit. Height is 5 feet 7 inches and weight is 181 pounds. HEENT: PERRLA. NECK: Range of motion is full in all directions. No tenderness to paracervical muscles. No adenopathy. LUNGS: Decreased breath sounds bilaterally. HEART: S1 and S2 regular. ABDOMEN: Obese with tenderness to palpation. BACK: Range of motion is decreased in flexion, extension with tenderness to paraspinal muscles. No tenderness to trapezius or rhomboid muscles. EXTREMITIES: Right lower extremity range of motion is decreased due to the patient's condition. No cyanosis. No clubbing. Sensory is reduced. Reflexes are not obtainable. No adenopathy with swelling noted at bilateral knees. ASSESSMENT AND PLAN: This is a 63-year-old female with abdominal pain, liver cirrhosis, low back pain, bilateral knee pain, osteoarthritis, altered mental status. At this time, the patient will be held off the morphine extended release until the patient is stabilized due to lethargy. We will start the patient on IV morphine immediate release 5 mg tablet every 3 hours as needed for severe pain. Hold for oversedation or lethargy or systolic blood pressure below 90 or diastolic blood pressure below 60 or respiratory rate below 12 or oxygen saturation below 92%. We will order x-rays of the bilateral knees to rule out further pathology and the patient again was discussed with the patient's daughter, Fani and was discussed with Dr. Gonzalez and he concurred. We will follow the patient. Thank you very much for the courtesy of this consultation. Tasha Gonzalez M.D. DANIELLE Garcia DR: KENNETH JOB#: [id number] CC:
--- NOTE | 2019-01-09 19:47 | NUR ---
HAND-OFF: Report given to GIOVANI Sanchez.
[2019-01-09 20:00] VITALS: BP 126/76
--- NOTE | 2019-01-09 20:00 | NUR ---
NURSE NOTES: RECEIVED PATIENT LYING IN BED, APPEAR TO BE ASLEEP, AWAKENED TO NAME, DENIES PAIN, NO SIGNS AND SYMPTOMS OF ACUTE CARDIO RESPIRATORY DISTRESS/SHORTNESS OF BREATH, DENIES CHEST PAIN. ABDOMEN SOFT/ROUND/BOWEL SOUNDS AUDIBLE IN ALL QUADRANTS, DENIES N/V/D. SIDE RAILS UP X2 FOR MOBILITY, BED IN LOWEST POSITION FOR SAFETY. ENCOURAGED PATIENT TO UTILIZE CALL LIGHT FOR ASSISTANCE, VERBALIZED UNDERSTANDING. BED ALARM ACTIVATED. NAD.
--- NOTE | 2019-01-09 21:00 | Progress Note ---
DATE: 01/09/2019 SUBJECTIVE: This is an elderly 63-year-old female, currently in bed, mostly sleeping, but she ate about 40% of food. She is not complaining of any pain, but the patient is still bedbound. Unable to open her eyes time to time. No distress. Psych and Neuro consult was obtained. The patient was also going to have CT of head to rule out CVA. . OBJECTIVE: VITAL SIGNS: Stable. CHEST: Bilaterally clear. CARDIOVASCULAR: Regular rhythm. ABDOMEN: Soft. EXTREMITIES: No CCE. NEUROLOGICAL: Generalized weakness and obtunded. GENITOURINARY: Deferred. ASSESSMENT: 1. Altered mental status. 2. Possible psychosis. 3. Encephalopathy. 4. Chronic pain. 5. Cirrhosis. PLAN: We will continue current treatment. The patient is on medical floor. Order CT scan. Check ammonia level. Consider Neuro and Psych consult. Hold all the pain medications per Dr. Gonzalez and Neurology on consult. Alejandro Del Rio M.D. DR: KORTNEY JOB#: [id number] CC:
[2019-01-10] VITALS: BP 118/69
--- NOTE | 2019-01-10 02:33 | NUR ---
NURSE NOTES: RESTING WELL, NAD.
[2019-01-10 04:00] VITALS: BP 128/82
--- NOTE | 2019-01-10 06:36 | NUR ---
NURSE NOTES: RESTED WELL, NO SIGNIFICANT CHANGE OF CONDITION NOTED THROUGHOUT THE NIGHT. SAFETY MAINTAINED. NAD.
--- NOTE | 2019-01-10 07:40 | NUR ---
HAND-OFF: Report given to mirza carey.
[2019-01-10 08:00] VITALS: BP 125/69
--- NOTE | 2019-01-10 08:00 | NUR ---
NURSE NOTES: received pt in bed, awake, no complaint of pain. Bilateral knee very swollen, right side more than left. Patient refuses IVF says she's drinking well. Bed locked at the lowest position possible, call light within easy reach, siderails up x3. Will continue to monitor pt and follow up with the plan of care.
[2019-01-10] MEDS: Diclofenac 1% Gel 100gm TOPIC SCH ×4 (08:02→20:17)
--- NOTE | 2019-01-10 09:24 | Diagnostic Imaging Report ---
Indications: Altered mental status Technique: Spiral acquisitions obtained through the brain. Angled axial and coronal 5 x 5 mm slices were reconstructed. Total dose length product 1660 mGycm. CTDI vol(s) 73 mGy. Dose reduction achieved using automated exposure control Comparison: None. Findings: There is age-related enlargement of the extra axial CSF spaces and to lesser extent the ventricles, particularly in the frontal and anterior parietal regions. No acute intracranial hemorrhage or edema. No mass effect nor midline shift. Normal goodson-white differentiation. Visualized orbits are unremarkable. There is opacification of the left maxillary sinus. There is minimal left ethmoid mucosal disease. The calvarium is intact. The mastoids are clear. Impression: Age-related volume loss Negative for acute intracranial bleed or mass effect Left maxillary and ethmoid sinus disease The CT scanner at [facility] is accredited by the [employer] and the scans are performed using protocols designed to limit radiation exposure to as low as reasonably achievable to attain images of sufficient resolution adequate for diagnostic evaluation.
--- NOTE | 2019-01-10 11:42 | Cardiology Report ---
APPROVED REPORT EKG Measurement Heart [id number] Normal sinus rhythm Normal ECG
[2019-01-10 12:00] VITALS: BP 118/72
--- NOTE | 2019-01-10 12:46 | Diagnostic Imaging Report ---
Indication: Chronic pain and swelling Technique: 2 views of the left knee Comparison: None Findings: No suprapatellar effusion. No acute fractures. No dislocations. Joint spaces are preserved. There are small osteophytes Impression: No acute process
--- NOTE | 2019-01-10 12:47 | Diagnostic Imaging Report ---
Indication: Chronic pain and swelling Technique: 3 views of the right knee Comparison: None Findings: No acute fractures. No dislocations. No suprapatellar effusion. There are small medial and lateral osteophytes. Impression: No acute process
--- NOTE | 2019-01-10 15:21 | NUR ---
*-*INSURANCE *-* ALL CLINICALS AND REVIEWS HAVE BEEN FAXED TO: [facility] F: [phone]
--- NOTE | 2019-01-10 15:24 | NUR ---
CASE MANAGEMENT: REVIEW 63 YR OLD BIBA FROM [facility] CC: GENERAL COMPLAINT IS: ENCEPHALOPATHY PMH: CIRRHOSIS OF LIVER 98.4 91 16 112/86 98% RA HCT47.4; BUN 45, CRE 1.5; CA 5.0; SI: IVF NS BOLUS IV NARCAN X1 : TO 4E MED/SURG UNIT DCP: RETURN TO [facility]. PLAN: PSYCH CONSULT NEUROLOGY CONSULT XR KNEE ECHO CASE MANAGEMENT: REVIEW 01/10/19 IS: METABOLIC ENCEPHALOPATHY, AMS 97.7 91 18 125/69 97%RA SI: VOLTAREN GEL TOPICAL QID LIDOCAINE TD QD ATIVAN PO Q6/PRN : 4E MED/SURG DCP: RETURN TO [facility]
--- NOTE | 2019-01-10 15:25 | NUR ---
*-* NO INSURANCE INFORMATION ON THE BAR UNABLE TO SEND CLINICALS OR REVIEWS *-*
[2019-01-10 16:00] VITALS: BP 113/74
--- NOTE | 2019-01-10 18:00 | NUR ---
NURSE NOTES: bilateral lidocaine patches fell off from knees. Pt refused to have other patches applied. Will endorse to SHANTELL BERMUDEZ. Addendum: 01/10/19 at 1931 by HENNY OCAMPO RN patient is also refusing IVF since the beginning of the shift.
[2019-01-10] MEDS ORDERED: LIDODERM700 M1 TOPIC (18:46)
[2019-01-10] MEDS ORDERED: DICLOFENAC SOD100 GM TP (18:49)
[2019-01-10] MEDS ORDERED: NORCO 5-325 TA1 EACH ORAL (19:40)
--- NOTE | 2019-01-10 19:43 | NUR ---
HAND-OFF: Report given to LARA Choudhury.
--- NOTE | 2019-01-10 19:45 | NUR ---
NURSE NOTES: Patient received aaox4, with active discharge order. Per patient, she refuses to be discharged tonight but is willing to be discharged in AM. Message left to Dr. Del Rio. Charge nurse made aware. Will continue plan of care.
[2019-01-10 20:00] VITALS: BP 112/70
[2019-01-10] MEDS: LORazepam 1mg tab ORAL PRN (20:15)
[2019-01-10] MEDS ORDERED: Morphine Sulfate 10mg/5ml Oral Soln ud ORAL PRN (20:15)
--- NOTE | 2019-01-10 22:00 | Consultation ---
DATE OF CONSULTATION: 01/10/2019 NEUROLOGIC CONSULTATION CONSULTING PHYSICIAN: Ray Aly M.D. CHIEF COMPLAINT: This is the third [facility] admission for this 63-year-old right-handed white woman, alcoholic with cirrhosis of the liver and depression and arthritis who is admitted with a chief complaint of altered mental status and confusion and wandering into other residents' rooms. The patient was at a correction facility, [facility]. The patient has a previous history of alcoholism and arthritis with back and upper extremity pain for which she was electively taking lot of morphine for severe pain. 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 In any event, the patient was brought to this hospital. CBC revealed that her hemoglobin was 16.2 with a normal platelet count and white cell count of 7400. The patient has been anemic in the past on 08/25/2018 with hemoglobin 6.8 with hypochromic indices. The patient's toxicology screen is negative. There are no opiates delivered. Urinalysis is not done. Chemistries revealed a sodium of 131 with a chloride of 94, BUN of 45, and creatinine of 1.5. Alkaline phosphatase is 162. Serum ammonia level was 40. Total protein was 8.6 with albumin of 3.7. The patient's arterial blood gas yesterday revealed a pH of 7.394, pCO2 of 46.9 with an . The patient's blood cultures were not done. The patient had knee x-rays yesterday, which revealed the right knee where she had arthroscopic surgery with a torn meniscus in the past. The left knee revealed no acute changes. The patient's EKG was normal. No chest x-ray was done. Vital signs on admission were basically normal. She is never febrile. The patient's medication history reveals that she is on Zyprexa, paroxetine, propranolol, Senna, spironolactone, sucralfate, ferrous sulfate, furosemide, cyclobenzaprine, ascorbic acid. She is on p.r.n. morphine 10 mg 5 mL oral solution. She does not know how much morphine she was taking. She is also on zolpidem 5 mg at night for insomnia and lorazepam 0.5 mg, which she takes once a day, probably night, calcium carbonate, and albuterol sulfate. The patient has had occasional headaches. Denies seizures, blackout, memory loss except for alcoholic blackouts. There is no alcoholic shakes, pancreatitis. She did have depression and anxiety for 25 years and has been on medication. There is no loss of smell or taste, double vision. She probably has myopia. There is no history of tremors or shakes, gait disorder, or muscle weakness. She has some occasionally numbness in the feet. The patient also has significantly decreased left auditory acuity, etiology unknown. Her mother of a brain tumor. PAST MEDICAL HISTORY/PAST MEDICAL ILLNESSES: 1. Bilateral knee pain with right meniscus tear. 2. Alcoholic-induced cirrhosis. 3. Arthritis, probably degenerative joint disease. ALLERGIES: No known allergies, although according to one physician she is allergic to propoxyphene. SURGICAL HISTORY: She had arthroscopic right knee, regular . SOCIAL HISTORY: She is . Has 1 child in good health. 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 FAMILY HISTORY: See above. Otherwise, unavailable. REVIEW OF SYSTEMS: Her appetite is good. She weighs 140 pounds and 5 feet 7 inches tall. Rest of the review of systems except for her knee and back pain and pain in her fingers is basically noncontributory although she has some abdominal pain on admission. MEDICATIONS: Lactulose and gabapentin. PHYSICAL EXAMINATION: GENERAL: She is a well-developed, overweight to obese woman, lying in bed, in no acute distress. Alert and awake. VITAL SIGNS: Blood pressure is 126/76 with pulse of 90 and regular, temperature 98.4 degrees, respirations 18, SpO2 is 98%. HEENT: Examination of the head, eyes, ears, nose, mouth, and throat is basically normal. NECK: There is no posterior cervical tenderness. No muscle spasm or limitation of motion. Carotids are +2 without any bruits appreciated. LUNGS: Clear to auscultation. CARDIOVASCULAR: PMI is not felt. JVP is normal. The patient has a normal S1. S2 is physiologically split. There is no S3, S4, murmurs, or rubs. ABDOMEN: The abdomen is obese. Bowel sounds intact. There is no organomegaly appreciated. BACK: There is no tenderness to percussion. EXTREMITIES: She has surgical scars on the right knee. There is +1 pedal edema noted. NEUROLOGIC EXAMINATION: MENTAL STATUS: Judgment, she would run out of a theater if she smelled smoke. Affect is appropriate. Memory, past memory is intact to date of 1955. Immediate recall 3/3. Recent recall is 0/3 at 5 minutes, 1/3 with a clue. Intellect similarities, cat and dog have "4 feet." A watch and a ruler, "have numbers." Language function, spoken speech was fluent without paraphasias. There is no right left confusion or finger agnosia. She could spell world forwards and she could spell it backwards "dlrow." CRANIAL NERVE EXAMINATION: CRANIAL NERVES II: Visual love were intact to confrontation. Fundi were not visualized. Visual acuity not tested. CRANIAL NERVES III, IV, AND : Extraocular motility was full with saccadic smooth pursuit noted. Pupils are about 8 mm, round, and reactive to light. CRANIAL NERVE V: Facial and corneal sensations intact. Pterygoid strength was 5/5. CRANIAL NERVE VII: Facial strength is 5/5 bilaterally. CRANIAL NERVE VIII: Significant decreased left auditory acuity. Right side is normal. CRANIAL NERVES IX AND X: Gag is intact bilaterally. CRANIAL NERVE XI: Sternocleidomastoid mastoid strength is 5/5. CRANIAL NERVE XII: Tongue protrudes in the midline without fasciculations or atrophy. MUSCLE EXAMINATION: Muscle bulk and tone are normal. Strength is 5/5 proximally and distally without pronator drift or tremor or asterixis. Reflexes are +2 in the upper extremities, +2 at the knees, 0 at the ankles with withdrawal on testing for Babinski response. COORDINATION: Romekn-ot-zuzf, zoph-of-akqp testing were intact. GAIT AND STATION: She has a normal based gait. Romberg is negative. She could not heel or toe walk or tandem walk. SENSORY: Proprioception was intact. There is decreased pinprick and fine touch around the right knee just below the right knee few centimeters. Otherwise, pinprick and fine touch are normal. IMPRESSION: Localizing the patient's problem as the patient has a toxic and metabolic encephalopathy related to her morphine overdose in conjunction with liver disease. Her morphine was increased from 15 mg twice a day to 30 mg as well as morphine solution as needed 3.5 mg every 2 hours. The patient is now much better. I do not think she needs any further workup. The patient's liver disease is due to cirrhosis, not sure what is the cause of her sensorineural hearing loss on the left. She may need an MRI scan with gadolinium to view her internal auditory canal if she has an acoustic neuroma on the left. However, this can be done as an outpatient. PLAN: 1. I will speak to you about this case. 2. I will sign off at this time. 3. She could probably use a Rheumatology consult along with Pain Management consult. Thank you for this interesting case. Ray Aly MD DR: VINI JOB#: [id number] CC:
[2019-01-11] VITALS: BP 107/70
--- NOTE | 2019-01-11 00:45 | Consultation ---
DATE OF CONSULTATION: 01/10/2019 HISTORY OF PRESENT ILLNESS: The patient is a 63-year-old female with a history of depression, anxiety disorder, chronic pain syndrome, arthritis, and foot ulcers, who has been admitted to the hospital as she has been more confused and altered. During the evaluation, she was able to answer simple questions and was not confused. However, she was anxious and she is unable to sleep. PAST PSYCHIATRIC HISTORY: Anxiety disorder. PAST MEDICAL HISTORY: As above. ALLERGIES: Propoxyphene. MENTAL STATUS EXAMINATION: The patient is alert and oriented times self, place, and situation. Mood is depressed. Affect is constricted. Congruent mood. Thought process is linear and goal oriented. Thought content, no suicidal or homicidal ideation. Memory is impaired. Insight and judgment is impaired. ASSESSMENT: Phoenix I Anxiety disorder. Psychotic disorder by history. Cognitive impairment. Phoenix II Deferred. Phoenix III Chronic pain syndrome. Phoenix IV Low. Phoenix V 50. PLAN: 1. We will start the patient on Lexapro 10 mg in the morning. 2. Ativan p.r.n.. 3. Provide the patient with reality orientation and supportive therapy. Leatha Castrejon M.D. DR: HARI JOB#: [id number] CC:
[2019-01-11 04:00] VITALS: BP 130/81
--- NOTE | 2019-01-11 04:30 | Progress Note ---
DATE: 01/10/2019 NOTE: POOR AUDIO SUBJECTIVE: This is an elderly female who came in with altered mental state and change in mental status. The patient was days. Her CT had revealed that the . The patient is currently more awake, tolerating diet, and doing fine physically. Diet, she is on a regular diet. Activities as tolerated. The patient saw pain management, had psych consult. DIET: Regular diet. DISCHARGE MEDICATIONS: The patient Morphine. Recommended to take [place] and Flexeril. Continue gabapentin and continue supportive for pain. The patient continues . Alejandro Del Rio M.D. DR: PEYMAN JOB#: [id number] CC:
--- NOTE | 2019-01-11 07:25 | NUR ---
NURSE NOTES: HANDOFF RECEIVED FROM LARA CARRILLO. PATIENT RECEIVED ALERT AND ORIENTED AND ABLE TO MAKE NEEDS KNOWN. PATIENT IV SITE IS CLEAN DRY AND INTACT, NOT RUNNING ANY FLUIDS PATIENT HAS BEEN REFUSING SINCE YESTERDAY. BED IN THE LOW AND LOCKED POSITION, CALL LIGHT WITHIN REACH. WILL CONTINUE TO MONITOR.
--- NOTE | 2019-01-11 07:35 | NUR ---
HAND-OFF: Report given to Salinas BERMUDEZ.
[2019-01-11 08:00] VITALS: BP 110/80
[2019-01-11] MEDS: Diclofenac 1% Gel 100gm TOPIC SCH ×2 (09:00→13:00)
--- NOTE | 2019-01-11 11:11 | NUR ---
DISCHARGE PLANNED: DISCUSSED DISCHARGE WITH PATIENT AT BEDSIDE PATIENT TO RETURN TO [facility] T: [phone] F: [phone] FOR NURSE TO NURSE REPORT ROOM # 204 BED 2 [facility] HAS BEEN ARRANGED FOR 1330 LEFT A VOICE MESSAGE FOR DAUGHTER PHYLLIS INFORMED HER OF DISCHARGE
[2019-01-11 12:00] VITALS: BP 115/74
--- NOTE | 2019-01-11 13:10 | NUR ---
NURSE NOTES: CALLED [facility] AND GAVE REPORT TO LUCHO.
[2019-01-11] MEDS: LORazepam 1mg tab ORAL PRN (14:06)
--- NOTE | 2019-01-11 14:21 | NUR ---
NURSE NOTES: UNABLE TO PULL LIDOCAIN PATCH AND VOLTERAN GEL FROM [facility]. CONTACTED PHARMACY AND WAS TOLD THAT THE MEDICATIONS HAVE BEEN DISCONTINUE BECAUSE THE PATIENT IS BEING DISCHARGED TODAY. I DID NO ADMIN FOR THESE ORDERS FOR THIS REASON.
--- NOTE | 2019-01-11 15:20 | NUR ---
CHARGE NURSE NOTE: [facility] was called second time (pickler helper time 1330). Spoke with [facility], he apologized for delay, he informed CN that ambulance ETA around 16-1630.
--- NOTE | 2019-01-11 16:33 | NUR ---
NURSE NOTES: PATIENT DISCHARG[facility] TO [facility]. PATIENT LEFT ALERT AND ORIENTED AND STABLE WITH NO VISIBLE SIGNS OF DISTRESS. IV REMOVED, NO SIGNS OF BLEEDING OR HEMATOMA. PATIENT SIGNED THE BELONGINGS LIST AND ID BRACELET WAS REMOVED. PATIENT LEFT WITH EMS ON A GURNEY. VITALS WERE STABLE.
--- NOTE | 2019-01-11 17:30 | Progress Note ---
DATE: 01/11/2019 SUBJECTIVE: The patient is in bed, asleep, arousable, less anxiety. She was able to answer the questions. No new events. Compliant with care. MENTAL STATUS EXAMINATION: The patient is alert, oriented times self, place, and situation. Mood is anxious. Thought process, linear and goal oriented. Thought content, no suicidal or homicidal ideations. Cognition is impaired. Insight and judgment is fair. ASSESSMENT: Anxiety disorder. PLAN: 1. We will continue the current psychotropic medication. 2. Continue to assess and readjust the medications. Leatha Castrejon M.D. DR: NASRA JOB#: [id number] CC:
--- NOTE | 2019-01-12 11:38 | Discharge Summary ---
Discharge Summary Discharge Summary _ DATE OF ADMISSION: 01/08/2019 DATE OF DISCHARGE: 01/11/2019 DISCHARGED BY: Dr. Del Rio REASON FOR ADMISSION: 63 years old female , resident of custodial facility, with past medical history of hypertension, liver cirrhosis, alcohol induced, dementia, major depressive disorder, anxiety disorder, was sent from the custodial [facility] for evaluation. Patient apparently was agitated and was unable to be cared at the facility. Patient demonstrated delusional thought process. She denied headache. She denied chest pain or shortness of breath. Upon evaluation vital signs were stable. Laboratory work-up revealed no leukocytosis , stable hemoglobin and hematocrit. Ammonia level with mild elevation - 40. Sodium 131. BUN 45 creatinine 1.5 . Glucose 116. Stable LFT. CK 83. Salicylate, Tylenol and alcohol levels were all negative. EKG revealed sinus rhythm, no acute ischemic changes. Patient admitted for altered mental status. CONSULTANTS: neurologist Dr. Aly pain specialist Dr. Gonzalez psychiatrist [facility] COURSE: Patient admitted to medical surgical floor . CT of the head revealed age-related volume loss, but was negative for acute intracranial bleeding or mass-effect. Patient started on the IV hydration. Per psychiatrist , patient had anxiety disorder. Psychiatric medication regimen was optimized as per psychiatrist. Patient was started on Lexapro and Ativan as needed. Patient provided with reality orientation and supportive therapy. Pain management was addressed as per pain specialist recommendation. X-ray of bilateral knees reveal no acute process: no fracture , no dislocation , no suprapatellar effusion. Neurology seen and evaluated patient . Per neurologist , patient had acute toxic metabolic encephalopathy related to morphine overdose at the group home in conjunction with the liver disease. Patient also noted to have significantly decreased left auditory acuity with etiology unclear. Neurologist recommended judicious pain management. Neurologist also suggested MRI scan with gadolinium to check left internal auditory canal to rule out acoustic neuroma , but that can be done as an outpatient. Patient clinically stabilized . Mood stabilized, cooperative with treatment, pain controlled. Patient was ready for transfer back to custodial [facility] for continuation of care. FINAL DIAGNOSES: Acute toxic metabolic encephalopathy Anxiety disorder Chronic pain syndrome Liver cirrhosis Bilateral knee pain Osteoarthritis Low back pain DISCHARGE MEDICATIONS: See Medication Reconciliation list. DISCHARGE INSTRUCTIONS: Patient was discharged to the custodial facility. Follow up with medical doctor at the facility. I have been assigned to dictate discharge summary for this account. I was not involved in the patient's management. Allie Mcclendon NP Jan 12, 2019 11:38
--- NOTE | 2019-01-12 14:35 | NUR ---
*-*INSURANCE *-* ALL CLINICALS AND REVIEWS HAVE BEEN FAXED TO: [facility] F: [phone]
== END 2019-01-11 16:35 | DRG 812 ==
LOC: EDBD 23:46 → EMR 23:59 → 4E 01-08 01:00 → EDBEDREQ 01-08 01:31 → UNDODISIN 01-10 15:30
DX: T40.2X1A Poisoning by other opioids, accidental (unintentional), initial encounter (principal); G92 Toxic encephalopathy; Y92.129 Unspecified place in nursing home as the place of occurrence of the external cause; G89.4 Chronic pain syndrome; M19.90 Unspecified osteoarthritis, unspecified site; F32.9 Major depressive disorder, single episode, unspecified; F29 Unspecified psychosis not due to a substance or known physiological condition; K70.30 Alcoholic cirrhosis of liver without ascites; F03.90 Unspecified dementia, unspecified severity, without behavioral disturbance, psychotic disturbance, mood disturbance, and anxiety; M25.562 Pain in left knee; M25.561 Pain in right knee; M54.5 Low back pain; Z88.8 Allergy status to other drugs, medicaments and biological substances; F41.9 Anxiety disorder, unspecified
CPT/HCPCS: 36415; 36600; 70450; 80053; 80329; 82140; 82550; 82553; 82803; 85025; 93005; 99285

== ENCOUNTER 2019-02-15 09:19 | Emergency (ER) | payer MEDICAID ==
[~2019-02-15] VITALS: Ht 170.2 cm; Wt 102.5 kg
[~2019-02-15 09:19] MED LIST changes: +ASCORBIC ACID500 MG ORAL; +DICLOFENAC SOD100 GM TP; +FERROUS SULFAT325 MG ORAL; +INDERAL LA60 MG ORAL; +LIDODERM700 M1 TOPIC; +NORCO 5-325 TA1 EACH ORAL; +POTASSIUM CHLO10 MEQ ORAL; +PREPARATION H C26 GM RC; +SENNA8.6 M2 PO; +SPIRONOLACTONE50 MG ORAL
--- NOTE | 2019-02-15 09:35 | NUR ---
ED Nurse Note: Pt arrived in ER via EMS from [facility]. Pt c/o edema, +2 pitting edema noted, and knee pain 10/20. Pt calm and cooperative. Pt states she gained 26 pounds recently from water gain and takes lasix. Pt is in gown and placed on potline monitor. No acute distress noted. Addendum: 02/15/19 at 1006 by IOROPEL ED Nurse Note: Non-pitting edema noted bilateral lower extremities. Pt arrived transported by EMS from [facility]. Pt aao x 4. Pt does not know exact dosage of lasix. Pt stated 26 pounds weight gain was within the past month.
[2019-02-15 09:36] VITALS: BP 122/73
[2019-02-15] MEDS ORDERED: BUSPIRONE HCL5 M2 ORAL (09:36)
[2019-02-15] MEDS ORDERED: ATIVAN1 MG ORAL (09:36)
--- NOTE | 2019-02-15 09:41 | NUR ---
ED Nurse Note: MD assessing patient at bedside.
--- NOTE | 2019-02-15 09:54 | Emergency Room Report ---
History of Present Illness General Chief Complaint: Edema Source: Patient, EMS Present Illness HPI Patient presents with complaints of increased swelling to both of her legs reports that she has gained over 20 pounds over the past 1 month Denies any chest pain at this time denies any shortness of breath She reports that she has liver disease from previous alcohol abuse as well Denies any vomiting or diarrhea she reports that she is taking the same Lasix as previous Denies any recent fall or trauma Allergies: Coded Allergies: PROPOXYPHENE (Verified Allergy, Unknown, 08/25/18) Patient History Past Medical History: see triage record Reviewed Nursing Documentation: PMH: Agreed; PSxH: Agreed Nursing Documentation-PMH Past Medical History: No History, Except For Hx Cardiac Problems: Yes Hx Hypertension: Yes - ESSENTIAL (PRIMARY) HYPERTENSION Hx Cancer: No Hx Gastrointestinal Problems: Yes - hernia, gastric ulcer History Of Psychiatric Problem: Yes - depression Hx Neurological Problems: No - liver cirrhosis, neuropathy, back pain Hx Dementia: Yes - UNSPECIFIED DEMENTIA WITHOUT BEHAVIORAL DISTURBANCE Review of Systems All Other Systems: negative except mentioned in HPI Physical Exam Vital Signs Date Time Temp Pulse Resp B/P (MAP) Pulse Ox O2 Delivery O2 Flow Rate FiO2 02/15/19 09:20 97.9 78 106/72 (83) 96 Room Air 02/15/19 09:36 13 Sp02 EP Interpretation: reviewed, normal General Appearance: well appearing, no apparent distress Head: normocephalic, atraumatic Eyes: bilateral eye PERRL, bilateral eye EOMI ENT: hearing grossly normal, normal pharynx, TMs + canals normal, uvula midline Neck: full range of motion, supple, no meningismus, no bony tend Respiratory: lungs clear, normal breath sounds, no rhonchi, no respiratory distress, no retraction, no accessory muscle use Cardiovascular #1: normal peripheral pulses, regular rate, rhythm, no gallop, no JVD, no murmur Gastrointestinal: normal bowel sounds, non tender, soft, no mass, no organomegaly, non-distended, no guarding, no hernia, no pulsatile mass, no rebound Genitourinary: no CVA tenderness Musculoskeletal: swelling - Pitting in nature bilaterally Neurologic: oriented x3, responsive, bank appraiser III-XII nml as tested, motor strength/ tone normal, sensory intact Psychiatric: mood/affect normal Skin: other - As above with increased edema bilateral lower extremity Lymphatic: normal inspection, no adenopathy Medical Decision Making Diagnostic Impression: Primary Impression: Edema ER Course Patient is a fairly complex patient with multiple differential to consideration including but not limited to cardiac cardiopulmonary and vascular emergencies Other differential such as infectious process also entertained Patient's white blood cell count is normal X-ray imaging does not show any obvious CHF patient appears to require improved diet control with Combination of diuretics Patient's ammonia level mildly elevated will continue outpatient therapy as well And is stable for close outpatient residential follow-up Labs Test 02/15/19 10:00 02/15/19 10:15 White Blood Count 5.3 K/UL (4.8-10.8) Red Blood Count 3.88 M/UL (4.20-5.40) Hemoglobin 11.4 G/DL (12.0-16.0) Hematocrit 34.4 % (37.0-47.0) Mean Corpuscular Volume 89 FL (80-99) Mean Corpuscular Hemoglobin 29.3 PG (27.0-31.0) Mean Corpuscular Hemoglobin Concent 33.0 G/DL (32.0-36.0) Red Cell Distribution Width 13.2 % (11.6-14.8) Platelet Count 144 K/UL (150-450) Mean Platelet Volume 8.4 FL (6.5-10.1) Neutrophils (%) (Auto) 46.8 % (45.0-75.0) Lymphocytes (%) (Auto) 36.5 % (20.0-45.0) Monocytes (%) (Auto) 12.2 % (1.0-10.0) Eosinophils (%) (Auto) 3.1 % (0.0-3.0) Basophils (%) (Auto) 1.4 % (0.0-2.0) Sodium Level 144 MMOL/L (136-145) Potassium Level 4.0 MMOL/L (3.5-5.1) Chloride Level 106 MMOL/L (98-107) Carbon Dioxide Level 34 MMOL/L (21-32) Anion Gap 4 mmol/L (5-15) Blood Urea Nitrogen 14 mg/dL (7-18) Creatinine 1.0 MG/DL (0.55-1.30) Estimat Glomerular Filtration Rate 56.0 mL/min (>60) Glucose Level 118 MG/DL (74-106) Calcium Level 9.1 MG/DL (8.5-10.1) Total Bilirubin 0.6 MG/DL (0.2-1.0) Aspartate Amino Transf (AST/SGOT) 22 U/L (15-37) Alanine Aminotransferase (ALT/SGPT) 22 U/L (12-78) Alkaline Phosphatase 154 U/L (46-116) Ammonia 57 umol/L (11-32) Troponin I 0.000 ng/mL (0.000-0.056) Pro-B-Type Natriuretic Peptide 304 pg/mL (0-125) Total Protein 7.0 G/DL (6.4-8.2) Albumin 3.1 G/DL (3.4-5.0) Globulin 3.9 g/dL Albumin/Globulin Ratio 0.8 (1.0-2.7) Lipase 166 U/L (73-393) Urine Color Pale yellow Urine Appearance Clear Urine pH 7 (4.5-8.0) Urine Specific [place] 1.005 (1.005-1.035) Urine Protein Negative (NEGATIVE) Urine Glucose (UA) Negative (NEGATIVE) Urine Ketones 1+ (NEGATIVE) Urine Blood Negative (NEGATIVE) Urine Nitrite Negative (NEGATIVE) Urine Bilirubin Negative (NEGATIVE) Urine Urobilinogen Normal MG/DL (0.0-1.0) Urine Leukocyte Esterase 1+ (NEGATIVE) Urine RBC 0-2 /HPF (0 - 2) Urine WBC 0-2 /HPF (0 - 2) Urine Squamous Epithelial Cells Occasional /LPF Urine Bacteria Occasional /HPF (NONE) EKG Diagnostic Results Rate: normal Rhythm: NSR ST Segments: no acute changes Rhythm Strip Diag. Results EP Interpretation: yes Rate: 66 Rhythm: NSR, no PVC's, no ectopy Chest X-Ray Diagnostic Results Chest X-Ray Diagnostic Results : Chest X-Ray Ordered: Yes # of Views/Limited/Complete: 1 View Indication: Chest Pain EP Interpretation: Yes Interpretation: no consolidation, no effusion, no pneumothorax Impression: No acute disease Electronically Signed by: Nba Forde DO Last Vital Signs Date Time Temp Pulse Resp B/P (MAP) Pulse Ox O2 Delivery O2 Flow Rate FiO2 02/15/19 09:36 77 13 Room Air 02/15/19 09:36 97.8 122/73 98 Status: improved Disposition: XFER SNF Condition: Improved Referrals: Joshua Del Rio MD (PCP) Additional Instructions: Patient is provided with the discharge instructions notified to follow up with primary doctor in the next 2-3 days otherwise return to the er with any worsening symptoms. Please note that this report is being documented using DRAGON technology. This can lead to erroneous entry secondary to incorrect interpretation by the dictating instrument. Nba Forde DO Feb 15, 2019 09:54
--- NOTE | 2019-02-15 10:05 | NUR ---
ED Nurse Note: X-ray being taken at bedside.
--- NOTE | 2019-02-15 10:12 | NUR ---
ED Nurse Note: Pt ambulating with steady gait to bathroom to provide urine sample.
[2019-02-15 10:13] LABS: BASOPHILS % (AUTO) 1.4 % (0.0-2.0); EOSINOPHILS % (AUTO) 3.1 % (0.0-3.0); HEMATOCRIT 34.4 % (37.0-47.0); HEMOGLOBIN 11.4 G/DL (12.0-16.0); LYMPHOCYTES % (AUTO) 36.5 % (20.0-45.0); MEAN CORPUSCULAR VOLUME 89 FL (80-99); MONOCYTES % (AUTO) 12.2 % (1.0-10.0); NEUTROPHILS % (AUTO) 46.8 % (45.0-75.0); PLATELET COUNT 144 K/UL (150-450); RED BLOOD COUNT 3.88 M/UL (4.20-5.40); RED CELL DISTRIBUTION WIDTH 13.2 % (11.6-14.8); WHITE BLOOD COUNT 5.3 K/UL (4.8-10.8)
--- NOTE | 2019-02-15 10:18 | NUR ---
ED Nurse Note: Pt provided urine sample and was placed back into bed on quality assurance monitor final.
[2019-02-15 10:24] LABS: ANION GAP 4 mmol/L (5-15); BLOOD UREA NITROGEN 14 mg/dL (7-18); CALCIUM 9.1 MG/DL (8.5-10.1); CARBON DIOXIDE 34 MMOL/L (21-32); CHLORIDE 106 MMOL/L (98-107); SODIUM 144 MMOL/L (136-145)
[2019-02-15 10:28] LABS: AMMONIA 57 umol/L (11-32)
--- NOTE | 2019-02-15 10:29 | NUR ---
ED Nurse Note: pt c/o both knees pain 10/20. ERMD made aware.
[2019-02-15] MEDS ORDERED: HYDROcodone/Acetamin 5/325 tab ORAL ONE (10:30)
[2019-02-15 10:33] LABS: ALANINE AMINOTRANSFERASE 22 U/L (12-78); ALBUMIN 3.1 G/DL (3.4-5.0); ALBUMIN/GLOBULIN RATIO 0.8 (1.0-2.7); ALKALINE PHOSPHATASE 154 U/L (46-116); ASPARTATE AMINO TRANSFERASE 22 U/L (15-37); BILIRUBIN,TOTAL 0.6 MG/DL (0.2-1.0)
[2019-02-15 10:41] LABS: APPEARANCE,URINE CLEAR; BILIRUBIN, URINE NEGATIVE (NEGATIVE); COLOR,URINE PALE YELLOW; GLUCOSE, URINE (UA) NEGATIVE (NEGATIVE); KETONES,URINE 1+ (NEGATIVE); LEUKOCYTE ESTERASE ,URINE 1+ (NEGATIVE); NITRITE,URINE NEGATIVE (NEGATIVE); PH,URINE 7 (4.5-8.0); PROTEIN,URINE NEGATIVE (NEGATIVE); UROBILINOGEN,URINE NORMAL MG/DL (0.0-1.0)
[2019-02-15 11:13] VITALS: BP 100/89
--- NOTE | 2019-02-15 12:03 | Diagnostic Imaging Report ---
Indication: Chest pain Technique: One view of the chest Comparison: 08/25/2018 Findings: Lungs and pleural spaces are clear. The heart size is upper limits of normal. There is a retrocardiac hiatal hernia again demonstrated Impression: No acute process Hiatal hernia
--- NOTE | 2019-02-15 13:12 | NUR ---
ED Nurse Note: spoke to Kelli at [facility] about pt's return. pt provided lab results with hard copy.
--- NOTE | 2019-02-15 13:15 | NUR ---
ED Nurse Note: pt ambulated to bathroom with steady gait.
[2019-02-15 13:32] VITALS: BP 104/71
--- NOTE | 2019-02-15 13:32 | NUR ---
ED Nurse Note: EMS arrived. report given.
--- NOTE | 2019-02-15 13:34 | NUR ---
ED Nurse Note: Addendum: 02/15/19 at 1334 by [email or web address] ED Nurse Note: Pt cleared by health care Provider for discharge. Transportation set up and EMS arrived. report given to EMS. DC instructions/prescription was given and explained to pt and EMS and verbalized understanding of teachings. All medical deviecs such as ID band removed. Pt is AAO x4, ambulatory to the [facility] and left with all personal belongings. Kelli at of [facility] made aware of pt's return. pt left with all her belongings.
--- NOTE | 2019-02-18 11:21 | Cardiology Report ---
APPROVED REPORT EKG Measurement Heart [id number] CO [id number] Normal sinus rhythm Cannot rule out Anterior infarct, age undetermined Abnormal ECG
== END 2019-02-15 13:36 ==
LOC: EDBD 09:19 → EMR 09:49
DX: R60.0 Localized edema (principal); K76.9 Liver disease, unspecified; Z88.8 Allergy status to other drugs, medicaments and biological substances; I10 Essential (primary) hypertension; F32.9 Major depressive disorder, single episode, unspecified; G62.9 Polyneuropathy, unspecified; F03.90 Unspecified dementia, unspecified severity, without behavioral disturbance, psychotic disturbance, mood disturbance, and anxiety
CPT/HCPCS: 36415; 71045; 80053; 81003; 82140; 83690; 83880; 84484; 85025; 93005; 96374; J1940; Z7502; 99284

== ENCOUNTER 2019-02-21 13:06 | Inpatient (IN) | payer MEDICAID ==
[~2019-02-21] VITALS: Ht 170.2 cm; Wt 101.6 kg
[~2019-02-21 13:06] MED LIST changes: +BUSPIRONE HCL5 M2 ORAL
[2019-02-21] MEDS ORDERED: Tetanus/Diptheria/Pertussis IM ONE (13:30)
[2019-02-21] MEDS ORDERED: Morphine Sulfate 2mg/ml Inj(IV/IM USE ONLY) IVP ONE (13:30)
--- NOTE | 2019-02-21 13:50 | NUR ---
ED Nurse Note: Patient ALAINA from [facility] d/t bilateral lower extremity edema for a few months now, worsening this past week. Pt aox4, on room air, no acute distress noted at this time.
--- NOTE | 2019-02-21 14:03 | NUR ---
ED Nurse Note: US at bedside.
--- NOTE | 2019-02-21 14:16 | NUR ---
ED Nurse Note: xray at bedside
[2019-02-21] MEDS ORDERED: Vancomycin 1 GM in NS 275 ML IVPB ONE (14:30)
[2019-02-21] MEDS ORDERED: Piperacillin/Tazobactam 3.375 GM in NS 110 ML IVPB ONE (14:30)
--- NOTE | 2019-02-21 14:34 | Emergency Room Report ---
History of Present Illness General Chief Complaint: Edema Source: Patient, Medical Record, EMS Present Illness HPI The patient presents with increased swelling and redness and pain right lower leg. The pain is 10/10 when she is trying to ambulate. When she lays down the pain is decreased. She denies diabetes and she denies venous disease. There is redness and open lesions. She is uncertain when her last tetanus vaccination was. She denies chest pain, hemoptysis or dyspnea. She feels chills but denies fever. She is not taking antibiotics at this time. The pain is fairly localized and does not radiate. Patient does complain of chronic low back pain. She takes [place]. In the past her chronic pain is been controlled with morphine. The patient has a sick history of cirrhosis. This is listed as related to alcohol. She has been on lactulose. The patient was evaluated February 15. Medical decision making: Patient is a fairly complex patient with multiple differential to consideration including but not limited to cardiac cardiopulmonary and vascular emergencies. Other differential such as infectious process also entertained Patient's white blood cell count is normal X-ray imaging does not show any obvious CHF patient appears to require improved diet control with combination of diuretics Patient's ammonia level mildly elevated will continue outpatient therapy as well And is stable for close outpatient correction follow-up The patient was admitted December this year. Discharge diagnoses: Acute toxic metabolic encephalopathy Anxiety disorder Chronic pain syndrome Liver cirrhosis Bilateral knee pain Osteoarthritis Low back pain No sore throat, palpitations, nausea, vomiting, diarrhea, dysuria, abdominal pain, shortness of breath, visual changes, dizziness, headache. 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 Last Menstrual Period: n/a Reviewed Nursing Documentation: PMH: Agreed; PSxH: Agreed Nursing Documentation-PMH Past Medical History: No History, Except For Hx Cardiac Problems: Yes Hx Hypertension: Yes - ESSENTIAL (PRIMARY) HYPERTENSION Hx Cancer: No Hx Gastrointestinal Problems: Yes - hernia, gastric ulcer Hx Neurological Problems: No - liver cirrhosis, neuropathy, back pain Hx Dementia: Yes - UNSPECIFIED DEMENTIA WITHOUT BEHAVIORAL DISTURBANCE Review of Systems All Other Systems: negative except mentioned in HPI Physical Exam Vital Signs Date Time Temp Pulse Resp B/P (MAP) Pulse Ox O2 Delivery O2 Flow Rate FiO2 02/21/19 13:23 97.9 83 18 99/70 (80) 98 Room Air Sp02 EP Interpretation: reviewed, normal General Appearance: well appearing, no apparent distress, GCS 15 Head: normocephalic Eyes: bilateral eye normal inspection, bilateral eye PERRL, bilateral eye EOMI ENT: moist mucus membranes Neck: supple Respiratory: lungs clear, normal breath sounds Cardiovascular #1: regular rate, rhythm, edema - Bilateral 1+ left 2+ right Cardiovascular #2: 2+ radial (R) Gastrointestinal: normal inspection, normal bowel sounds, non tender, no mass, non-distended Genitourinary: no CVA tenderness Musculoskeletal: back normal, gait/station normal, normal range of motion, no calf tenderness, Brooke's Sign negative Neurologic: alert, oriented x3, motor strength/tone normal, DTRs symmetric, sensory intact, speech normal, other - No asterixis, grossly normal Psychiatric: mood/affect normal Skin: warm/dry, other - Erythema right lower extremity with open lesion Medical Decision Making Diagnostic Impression: Primary Impression: Cellulitis Qualified Codes: L03.115 - Cellulitis of right lower limb Additional Impressions: Edema Qualified Codes: R60.9 - Edema, unspecified Cirrhosis Qualified Codes: K70.30 - Alcoholic cirrhosis of liver without ascites ER Course Patient with swelling redness and pain right lower leg. Differential includes cellulitis, DVT, osteomyelitis amongst others. Patient evaluated with EKG, chest x-ray and labs including lactic acid and blood cultures. In addition DVT will be ruled out by venous Doppler. The patient is treated with IV hydration and analgesia. EKG normal sinus rhythm at [address]-T wave changes QT prolonged at 473 ms. White count normal. CMP unremarkable. Lactate normal. Venous Doppler negative for DVT. Due to the fact that the patient has peripheral edema and evidence of cellulitis IV antibiotics are indicated. Pain improved with morphine. Admit for IV antibiotics Dr. Del Rio. Laboratory Tests Test 02/21/19 15:00 02/21/19 17:00 White Blood Count 4.9 K/UL (4.8-10.8) Red Blood Count 3.81 M/UL (4.20-5.40) L Hemoglobin 11.2 G/DL (12.0-16.0) L Hematocrit 32.8 % (37.0-47.0) L Mean Corpuscular Volume 86 FL (80-99) Mean Corpuscular Hemoglobin 29.4 PG (27.0-31.0) Mean Corpuscular Hemoglobin Concent 34.3 G/DL (32.0-36.0) Red Cell Distribution Width 11.4 % (11.6-14.8) L Platelet Count 136 K/UL (150-450) L Mean Platelet Volume 8.0 FL (6.5-10.1) Neutrophils (%) (Auto) 35.5 % (45.0-75.0) L Lymphocytes (%) (Auto) 44.3 % (20.0-45.0) Monocytes (%) (Auto) 13.5 % (1.0-10.0) H Eosinophils (%) (Auto) 4.1 % (0.0-3.0) H Basophils (%) (Auto) 2.5 % (0.0-2.0) H Prothrombin Time 10.6 SEC (9.30-11.50) Prothrombin Time INR 1.0 (0.9-1.1) PTT 26 SEC (23-33) Sodium Level 141 MMOL/L (136-145) Potassium Level 4.0 MMOL/L (3.5-5.1) Chloride Level 103 MMOL/L (98-107) Carbon Dioxide Level 28 MMOL/L (21-32) Anion Gap 17 mmol/L (5-15) H Blood Urea Nitrogen 17 mg/dL (7-18) Creatinine 0.9 MG/DL (0.55-1.30) Estimate Glomerular Filtration Rate > 60 mL/min (>60) Glucose Level 106 MG/DL (74-106) Lactic Acid Level 1.40 mmol/L (0.4-2.0) Calcium Level 8.8 MG/DL (8.5-10.1) Magnesium Level 1.9 MG/DL (1.8-2.4) Total Bilirubin 0.7 MG/DL (0.2-1.0) Aspartate Amino Transferase (AST) 37 U/L (15-37) Alanine Aminotransferase (ALT) 19 U/L (12-78) Alkaline Phosphatase 154 U/L (46-116) H Total Creatine Kinase 121 U/L (26-140) Creatine Kinase MB 0.9 NG/ML (0.0-3.6) Creatine Kinase MB Relative Index 0.7 Troponin I 0.000 ng/mL (0.000-0.056) Pro-B-Type Natriuretic Peptide 64 pg/mL (0-125) Total Protein 7.3 G/DL (6.4-8.2) Albumin 3.2 G/DL (3.4-5.0) L Globulin 4.1 g/dL Albumin/Globulin Ratio 0.8 (1.0-2.7) L Lipase 172 U/L (73-393) Urine Color Pale yellow Urine Appearance Clear Urine pH 6.5 (4.5-8.0) Urine Specific [place] 1.010 (1.005-1.035) Urine Protein Negative (NEGATIVE) Urine Glucose (UA) Negative (NEGATIVE) Urine Ketones Negative (NEGATIVE) Urine Blood Negative (NEGATIVE) Urine Nitrite Negative (NEGATIVE) Urine Bilirubin Negative (NEGATIVE) Urine Urobilinogen Normal MG/DL (0.0-1.0) Urine Leukocyte Esterase 3+ (NEGATIVE) H Urine RBC 0-2 /HPF (0 - 2) Urine WBC 2-4 /HPF (0 - 2) Urine Squamous Epithelial Cells Few /LPF (NONE/OCC) Urine Bacteria Occasional /HPF (NONE) EKG Diagnostic Results Rate: normal Rhythm: NSR ST Segments: no acute changes Rhythm Strip Diag. Results Rhythm: NSR, no PVC's, no ectopy Chest X-Ray Diagnostic Results Chest X-Ray Diagnostic Results : Chest X-Ray Ordered: Yes # of Views/Limited/Complete: 1 View Indication: Other EP Interpretation: Yes Interpretation: no consolidation, no effusion, no pneumothorax Impression: No acute disease Electronically Signed by: Electronically signed by Ham Davis MD Last Vital Signs Date Time Temp Pulse Resp B/P (MAP) Pulse Ox O2 Delivery O2 Flow Rate FiO2 02/21/19 18:32 Room Air 02/21/19 18:02 97.9 79 18 125/81 100 Status: improved Disposition: ADMITTED INPATIENT Condition: Serious Referrals: Joshua Del Rio MD (PCP) Ham Davis MD Feb 21, 2019 14:34
[2019-02-21 14:39] VITALS: BP 116/72
--- NOTE | 2019-02-21 14:57 | Diagnostic Imaging Report ---
Indication: Chest pain Comparison: None A single view chest radiograph was obtained. Findings: No definite infiltrate or pulmonary vascular congestion identified. Hiatal hernia is again noted. The heart is enlarged. The aorta is mildly enlarged consistent with atherosclerotic vascular disease. The bones are osteopenic. Impression: No acute disease
[2019-02-21 16:07] LABS: BASOPHILS % (AUTO) 2.5 % (0.0-2.0); EOSINOPHILS % (AUTO) 4.1 % (0.0-3.0); HEMATOCRIT 32.8 % (37.0-47.0); HEMOGLOBIN 11.2 G/DL (12.0-16.0); LYMPHOCYTES % (AUTO) 44.3 % (20.0-45.0); MEAN CORPUSCULAR VOLUME 86 FL (80-99); MONOCYTES % (AUTO) 13.5 % (1.0-10.0); NEUTROPHILS % (AUTO) 35.5 % (45.0-75.0); PLATELET COUNT 136 K/UL (150-450); RED BLOOD COUNT 3.81 M/UL (4.20-5.40); RED CELL DISTRIBUTION WIDTH 11.4 % (11.6-14.8); WHITE BLOOD COUNT 4.9 K/UL (4.8-10.8)
[2019-02-21 17:17] VITALS: BP 120/71
[2019-02-21 17:21] LABS: ALANINE AMINOTRANSFERASE 19 U/L (12-78); ASPARTATE AMINO TRANSFERASE 37 U/L (15-37); BILIRUBIN,TOTAL 0.7 MG/DL (0.2-1.0); BLOOD UREA NITROGEN 17 mg/dL (7-18); CALCIUM 8.8 MG/DL (8.5-10.1); CREATININE 0.9 MG/DL (0.55-1.30)
[2019-02-21 17:22] LABS: ALBUMIN 3.2 G/DL (3.4-5.0); ALBUMIN/GLOBULIN RATIO 0.8 (1.0-2.7); ALKALINE PHOSPHATASE 154 U/L (46-116); CARBON DIOXIDE 28 MMOL/L (21-32); CKMB 0.9 NG/ML (0.0-3.6); CREATINE KINASE 121 U/L (26-140)
--- NOTE | 2019-02-21 17:23 | NUR ---
ED Nurse Note: Report given to LARA Andersen via telephone
[2019-02-21 17:24] LABS: ANION GAP 17 mmol/L (5-15)
[2019-02-21 17:29] LABS: SODIUM 141 MMOL/L (136-145)
[2019-02-21 17:30] LABS: CHLORIDE 103 MMOL/L (98-107)
[2019-02-21 17:49] LABS: APPEARANCE,URINE CLEAR; BILIRUBIN, URINE NEGATIVE (NEGATIVE); COLOR,URINE PALE YELLOW; GLUCOSE, URINE (UA) NEGATIVE (NEGATIVE); KETONES,URINE NEGATIVE (NEGATIVE); LEUKOCYTE ESTERASE ,URINE 3+ (NEGATIVE); NITRITE,URINE NEGATIVE (NEGATIVE); PH,URINE 6.5 (4.5-8.0); PROTEIN,URINE NEGATIVE (NEGATIVE); UROBILINOGEN,URINE NORMAL MG/DL (0.0-1.0)
--- NOTE | 2019-02-21 17:55 | NUR ---
TRANSFER TO FLOOR: Patient transferred to Telemetry room 214-1 as ordered, per Dr Del Rio. Report given to LARA Andersen. Belongings inventoried and signed with receiving nurse. Family informed of transfer. Transported pt via [facility]shaw protocol. Pt remained in stable condition
--- NOTE | 2019-02-21 18:10 | NUR ---
NURSE NOTES: Patient's transferred to the floor from ER by den. Patient ambulates and is stable. Patient's supposed to be transferred to med-surg however they reported no isolation room available for the patient to be transferred there so she's in telemetry floor instead; no energy consultant need. Patient's AO x3, denies chest pain, c/o bilateral legs pain 5/10, no s/s of distress or SOB. Patient's easily dozed off when answering questions, but easily awaken by light shake. IV is saline locked, patent and asymptomatic. Patient present with bilateral edema with cellulitis. Vital signs: BP 99/65, ME 79, RR 17, O2 96%, Temp 97.3. Spoke to Lisa from Dr. Del Rio's office and left the message that Dr. Del Rio has new patient and in need of admission order. Awaiting for response.
--- NOTE | 2019-02-21 18:44 | NUR ---
NURSE NOTES: Tried to call Dr. Del Rio's office again for admission order and spoke with Grisel. She stated she will page him again. Awaiting for response.
--- NOTE | 2019-02-21 19:40 | NUR ---
NURSE NOTES: Received pt and report from LARA Florez. Observed pt asleep in bed with both eyes closed; arousable to voice. Pt is an overflow med-surg pt. IV site intact, asymptomatic, and patent. Bed is in the lowest position and locked. Call light within reach. No signs/symptoms of acute distress noted at this time. Pt currently do not have admission orders. Endorsed by LARA Florez that Dr. Del Rio was paged twice with no call back. Will contact Dr. Del Rio again for admission orders.
--- NOTE | 2019-02-21 19:50 | NUR ---
HAND-OFF: Report given to LARA Mcdowell. Patient's stable, plan of care endorsed.
[2019-02-21 20:00] VITALS: BP 111/61
--- NOTE | 2019-02-21 20:25 | NUR ---
NURSE NOTES: Received admission orders from Dr. Del Rio. Made aware that PLT is 136. Dr. Del Rio ordered and confirmed that is it okay to give Heparin 5000 units SubQ Q12h with PLT of 136. Will note and carry out.
[2019-02-21] MEDS ORDERED: Zolpidem 5mg tab ORAL PRN (20:45)
[2019-02-21] MEDS ORDERED: Milk of Magnesia 30ml Ud ORAL PRN (20:45)
[2019-02-21] MEDS ORDERED: Albuterol 90mcg Inhaler 8gm INH PRN (20:45)
[2019-02-21] MEDS ORDERED: HYDROcodone/Acetamin 5/325 tab ORAL PRN (20:45)
[2019-02-21] MEDS ORDERED: PARoxetine 20mg tab ORAL SCH (21:00)
[2019-02-21] MEDS: Sucralfate 1gm tab ORAL SCH (21:59)
[2019-02-21] MEDS: Heparin 5000 units/ml inj SUBQ SCH (22:30)
[2019-02-21] MEDS ORDERED: cefTRIAXone 1 GM in D5W 55 ML IVPB SCH (23:00)
[2019-02-21] MEDS: LORazepam 1mg tab ORAL PRN (23:59)
[2019-02-22] VITALS: BP 116/58
--- NOTE | 2019-02-22 02:15 | NUR ---
NURSE NOTES: Pt is asleep in bed with both eyes closed; arousable to voice. No signs/symptoms of acute distress noted at this time. Will continue plan of care.
--- NOTE | 2019-02-22 03:15 | History and Physical Report ---
DATE OF ADMISSION: 02/21/2019 HISTORY OF PRESENT ILLNESS: This is an elderly 63-year-old female, came to the emergency room from shelter where she was found with bilateral leg edema as well as a cellulitis on right leg. The patient also has increased swelling for last few days. She has no fever, chills. Mild short of breath. No chest pain. No palpitation. The patient looks little tired and fatigued. PAST MEDICAL HISTORY: Significant for edema, chronic back pain, cirrhosis, ascites, history of alcohol abuse. MEDICATIONS: See the list. ALLERGIES: NKA. FAMILY HISTORY: Noncontributory. SOCIAL HISTORY: Lives at shelter mostly. The patient walks with minimum assistance, but she has increasing leg edema. PHYSICAL EXAMINATION: VITAL SIGNS: Blood pressure is 130/70, pulse 74, and respirations 18. HEENT: AT/NC. EOMI. PERRLA. NECK: No JVD. CHEST: Bilateral decreased breath sounds. Few crackles. CARDIOVASCULAR: Regular rhythm. No gallop. No murmur. ABDOMEN: Soft. Positive bowel sounds. Nontender. EXTREMITIES: 1+ edema as well as having cellulitis on the right leg. GENITOURINARY: Deferred. LABORATORY EXAMINATION: Her laboratory examinations are not available. ASSESSMENT: 1. Bilateral leg edema. 2. Cellulitis. 3. Hypertension. 4. Chronic pain. 5. Cirrhosis. 6. Generalized weakness. PLAN: 1. We will admit to [facility]. 2. Add IV antibiotics, Lasix, bronchodilator treatments. 3. Consider Cardiology consult and also consider ID consult. Alejandro Del Rio M.D. DR: GABINO JOB#: [id number] CC:
[2019-02-22 04:00] VITALS: BP 128/81
--- NOTE | 2019-02-22 07:35 | NUR ---
HAND-OFF: Report given to LARA Florez. Plan of care endorsed.
--- NOTE | 2019-02-22 07:35 | NUR ---
NURSE NOTES: Nurse report given by LARA Holliday. Patient's awake in bed, AO x 4, denies pain, no s/s of acute distress or SOB. Bed low and locked, call light within reach, side rails x 2, safety precaution is applied. IV is saline locked, patent and asymptomatic. Will continue to monitor.
[2019-02-22 08:00] VITALS: BP 134/80
[2019-02-22] MEDS: LORazepam 1mg tab ORAL PRN ×2 (08:48→18:28)
[2019-02-22] MEDS: Sucralfate 1gm tab ORAL SCH ×4 (08:48→21:35)
[2019-02-22] MEDS: Heparin 5000 units/ml inj SUBQ SCH ×2 (08:49→21:37)
[2019-02-22] MEDS ORDERED: Propranolol ER 60mg cap ORAL SCH (09:00)
[2019-02-22] MEDS ORDERED: Lactulose 20gm/30ml UDC ORAL SCH (09:00)
[2019-02-22] MEDS ORDERED: Cyclobenzaprine 10mg Tab ORAL SCH (09:00)
[2019-02-22] MEDS ORDERED: Multivitamin w/Minerals tab ORAL SCH (09:00)
--- NOTE | 2019-02-22 09:30 | NUR ---
NURSE NOTES: Patient wanted to go back to [facility], rather than moving down to Med-Surg floor where she's supposed to transfer to from ER. Contacted Dr. Del Rio and he said she can't be discharge home because she needs to be treated with the cellulitis and MRSA. Spoke with patient and she still refused to stay.
--- NOTE | 2019-02-22 10:44 | NUR ---
*-* INSURANCE *-* ALL AVAILABLE CLINICALS HAVE BEEN FAXED TO: [employer]#[id number] NO CM ASSIGNED YET #[phone] FAX#[phone] REVIEWS/CLINICALS
[2019-02-22 12:00] VITALS: BP 118/84
--- NOTE | 2019-02-22 14:55 | Diagnostic Imaging Report ---
Indication: Right lower extremity pain and swelling. Technique: Duplex Doppler imaging performed from the right common femoral vein to the popliteal vein. FINDINGS: Normal compressibility demonstrated from the common femoral vein to the popliteal vein. Respiratory phasicity and good augmentation demonstrated on waveform analysis. There is no evidence of thrombosis. There is a large cyst posterior part of the right knee measuring 6 x 2.6 x 3.4 cm. IMPRESSION: No evidence of deep venous thrombosis within the right lower extremity. Right popliteal cyst
[2019-02-22 16:00] VITALS: BP 120/61
--- NOTE | 2019-02-22 16:10 | NUR ---
NURSE NOTES: Patient's been persistent about wanting to go back to [facility] by kiight with Doctor clearance. Dr. Del Rio was here speaking to her this morning at 1000 regarding about her condition and he stated he does not want to clear her to go back to [facility] due to her same condition that she had before and keep going back to the hospital from [facility] with the same condition. Patient agreed to stay this morning after doctor talk to her, however now she wants to leave but not by Against medical Advice, she said "The doctor never here, I have trouble sleeping." I confirmed her I was there when the doctor was talking to her and confirmed her that he stated she cannot go back to [facility] yet; and she fell asleep very easily and easily dozed off while talking to nurses, (see past documented notes). Contacted daughter Fani Pizano and explained the situation. Daughter said she will try to talk to the patient and make her stay in the hospital. Spoke to Dr. Del Rio about the situation and he still confirmed that patient needs to be treated in the hospital and cannot be cleared to be discharge. Will update if there's anything new. .
--- NOTE | 2019-02-22 17:20 | NUR ---
HAND-OFF: Report given to Denise RN from 4E for patient to transfer from 2E. Patient's supposed to be on medsur floor since admission but it was reported no isolation room available at that time. Transferred order is in per Dr. Del Rio's order. Patient's AO x4, no s/s of distress or SOB, ambulates with stability. Patient's belonging list went over with receiving nurse Denise and patient at bedside and signed by LARA Walker. Patient's transferred to room 415-1.
--- NOTE | 2019-02-22 17:24 | NUR ---
NURSE NOTES:WOUND CARE NOTES:Pt presented on admission with red plaque max/distal R tibia and medial /distal L tibia. Max/ distal R tibia red mildly indurated without elevation in skin temp (L)4cm x (W)2.5cm. NO exudate noted. Medial/ Distal L tibia wound erythematous without induration or elevation in skin temp. NO exudate noted. Pt stated she developed both wounds after topical application of ICE (analgesic) at her home. Pt denied [pain at present but stated both sites were very painful for 3 days. Recommendations: If PCP approves -Cleanse wounds R and L tibia with Saline. Apply Silvasorb gel. Cover each wound with Optifoam drsgs. Change every 3 days and prn. Elevate legs with pillow.
--- NOTE | 2019-02-22 17:41 | NUR ---
NURSE NOTES: Received patient on bed awake, alert and oriented x 4. Ambulatory with steady gait. No SOB or cardiac distress. IV line on RFA g22 intact and patent, no s/s of infection. With BLE edema. With blisters on lower part of legs, optifoam dressing on. HOB elevated. Bed locked in lowest position. Call light within reach. Will continue plan of care.
[2019-02-22] MEDS ORDERED: Albuterol 90mcg Inhaler 8gm INH PRN (18:00)
[2019-02-22] MEDS: Cyclobenzaprine 10mg Tab ORAL SCH (18:29)
--- NOTE | 2019-02-22 19:28 | NUR ---
HAND-OFF: Report given to
--- NOTE | 2019-02-22 19:30 | NUR ---
NURSE NOTES: Received patient in no apparent distress. A&OX4. IV site patent and intact. Bed in lowest position. Call light within reach. Will continue to monitor.
[2019-02-22] MEDS: Propranolol ER 60mg cap ORAL SCH (19:47)
[2019-02-22 20:00] VITALS: BP 116/64
[2019-02-22] MEDS ORDERED: HYDROcodone/Acetamin 5/325 tab ORAL PRN (20:45)
[2019-02-22] MEDS ORDERED: PARoxetine 20mg tab ORAL SCH ×2 (21:00)
[2019-02-22] MEDS ORDERED: Zolpidem 5mg tab ORAL PRN (21:00)
--- NOTE | 2019-02-22 21:45 | Progress Note ---
DATE: 02/22/2019 SUBJECTIVE: This is elderly female, came with bilateral leg edema, ulcer, and cellulitis. The patient is currently in bed. Currently, is still swelling . OBJECTIVE: VITAL SIGNS: Blood pressure is 130/80, pulse 84, no fever. Temperature 97.7. HEENT: NAD. CHEST: Bilaterally clear. CARDIOVASCULAR: Regular rhythm. ABDOMEN: Soft. EXTREMITIES: 1+ edema and both the legs has ulcer. GENITOURINARY: Deferred. LABORATORY DATA: Chemistry panels, BUN 17 and creatinine 0.9. Lactic acid is 1.40. Troponins are negative. BNP 64. ASSESSMENT: 1. Bilateral leg ulcer. 2. Cellulitis. 3. Edema. 4. Chronic pain. 5. Cirrhosis. PLAN: We will currently consider Vascular Surgery consult. Continue current treatment. Continue Lasix. Continue antibiotic. Discussed with the patient who wants to go AMA, but waiting for arterial study and vascular surgery evaluation. Alejandro Del Rio M.D. DR: GABINO JOB#: [id number] CC:
[2019-02-22] MEDS ORDERED: cefTRIAXone 1 GM in D5W 55 ML IVPB SCH (23:00)
[2019-02-23] VITALS: BP 118/60
[2019-02-23] MEDS: HYDROcodone/Acetamin 5/325 tab ORAL PRN ×4 (00:38→14:37)
[2019-02-23 04:00] VITALS: BP 126/82
[2019-02-23] MEDS: LORazepam 1mg tab ORAL PRN ×2 (06:36→13:52)
--- NOTE | 2019-02-23 07:21 | NUR ---
HAND-OFF: Report given to Shae BERMUDEZ.
[2019-02-23 07:24] VITALS: BP 111/69
--- NOTE | 2019-02-23 07:30 | NUR ---
NURSE NOTES: received report from LARA Bobo. patient in bed. alert.oriented. verbally responsive. no respiratory distress noted. c/o of pain on both lower legs 07/21. IV on RFA 22 saline lock. intact. edema on both lower leg. elevated affected area with pillow. vascular surgeon consult expecting. bed in the lowest position and locked. call light within reach. will continue to provide plan of care.
[2019-02-23] MEDS ORDERED: Lactulose 20gm/30ml UDC ORAL SCH (09:00)
[2019-02-23] MEDS ORDERED: Milk of Magnesia 30ml Ud ORAL PRN (09:00)
[2019-02-23] MEDS ORDERED: Multivitamin w/Minerals tab ORAL SCH (09:00)
[2019-02-23] MEDS: Cyclobenzaprine 10mg Tab ORAL SCH (09:28)
[2019-02-23] MEDS: Propranolol ER 60mg cap ORAL SCH (09:29)
[2019-02-23] MEDS: Sucralfate 1gm tab ORAL SCH ×2 (09:30→13:42)
--- NOTE | 2019-02-23 09:30 | NUR ---
NURSE NOTES: seen by Quang Smith. patient can be discharged if cleared by vascular surgeon.
[2019-02-23] MEDS: Heparin 5000 units/ml inj SUBQ SCH (09:36)
--- NOTE | 2019-02-23 10:55 | NUR ---
NURSE NOTES: patient cleared by Dr. Fuentes,Vascular surgeon for discharge.
--- NOTE | 2019-02-23 10:55 | NUR ---
NURSE NOTES: Patient seen by DR. Fuentes. no need surgery at this time. new order of treatment. keep elevate affected area in bed. order noted and carried out.
[2019-02-23 12:00] VITALS: BP 125/79
--- NOTE | 2019-02-23 15:09 | NUR ---
DISCHARGE PLANNING DISCHARGE ORDER NOTED Patient has been accepted to; [facility] [address] , [place] [address] Bed: 204 Skilled [phone] for Nurse to Nurse report [facility] ETA for transportation: 15:30
--- NOTE | 2019-02-23 15:15 | NUR ---
NURSE NOTES: Received order from Dr. Del Rio to continue with home meds upon discharge.
--- NOTE | 2019-02-23 15:15 | NUR ---
NURSE NOTES: RN gave patient report to [facility]. spoke to LARA Villasenor. patient will be leave at 15:30 via ambulance.
[2019-02-23] MEDS ORDERED: KEPPRA500 MG ORAL ×2 (15:23→15:24)
[2019-02-23] MEDS ORDERED: CEPHALEXIN500 MG ORAL (15:26)
--- NOTE | 2019-02-23 15:30 | Progress Note ---
DATE: 02/23/2019 SUBJECTIVE: This is a young 63-year-old female came with generalized weakness and leg edema and cellulitis. The patient received IV antibiotic. Waiting for Vascular Surgery consult. The patient is physically doing better. Swelling is little bit better. OBJECTIVE: VITAL SIGNS: Blood pressure 111/69, pulse 74, no fever. CHEST: Bilaterally clear. CARDIOVASCULAR: Regular rhythm. ABDOMEN: Soft. EXTREMITIES: CCE. NEUROLOGICAL: Generalized weakness. ASSESSMENT: 1. Recurrent leg edema. 2. Peripheral vascular disease. 3. Cirrhosis. 4. Ascites. PLAN: 1. Continue current treatment. 2. Discharge plan per Vascular Surgery. 3. Going back to the alf. 4. Going to continue Lasix. 5. Fluid restriction. 6. Continue medical treatment. Alejandro Del Rio M.D. DR: KORTNEY JOB#: [id number] CC:
--- NOTE | 2019-02-23 15:35 | NUR ---
NURSE NOTES: Patient discharged to [facility] with stable condition via ambulance. no respiratory distress noted. no c/o pain at this time. RN provide treatment on both feet d/t cellulitis as MD ordered. dressing intact. clean and dry. NO IV site d/t DC per patient. RN removed ID band. Provided dc packet and obtained sign. RN checked and counted belongings with patient and obtained sign. patient left unit safely
--- NOTE | 2019-02-23 15:59 | Consultation ---
History of Present Illness General Date patient seen: Feb 23, 2019 Reason for Hospitalization: Edema Present Illness HPI 63F presented with b/l lower extremity pain, swelling, wounds. states worse over the last two weeks. on admission noted to have bilateral anterior ankle wounds. s ramon called to evaluate and assist with care. patient seen, chart reviewed, patient examined. no n/v/f/c. otherwise comfortable. states she feels well. no trauma or injury Allergies: Coded Allergies: PROPOXYPHENE (Verified Allergy, Unknown, 08/25/18) Medication History Scheduled Cephalexin* (Keflex*), 500 MG ORAL TID, (Reported) Cyclobenzaprine Hcl* (Flexeril*), 10 MG ORAL BID, (Reported) Furosemide* (Lasix*), 40 MG ORAL BID, (Reported) Gabapentin* (Gabapentin*), 600 MG ORAL TWICE A DAY, (Reported) Lactulose (Lactulose*), 30 ML ORAL DAILY, (Reported) Lidocaine Patch* (Lidoderm Patch*), 2 PATCH TOPIC DAILY, (Reported) Lorazepam* (Ativan*), 1 MG ORAL BEDTIME, (Reported) Multivitamin With Minerals (Multivitamins With Minerals*), 1 TAB ORAL DAILY, ( Reported) Olanzapine* (Zyprexa*), 5 MG ORAL THREE TIMES A DAY, (Reported) Pantoprazole* (Pantoprazole*), 40 MG ORAL DAILY Paroxetine Hcl* (Paxil*), 20 MG PO EVENING, (Reported) Paroxetine Hcl* (Paxil*), 40 MG PO MORNING, (Reported) Potassium Chloride* (K-Dur*), 10 MEQ ORAL DAILY, (Reported) Propranolol Hcl* (Inderal La*), 10 MG ORAL BID, (Reported) Sennosides (Senna), 8.6 MG PO BEDTIME, (Reported) Sucralfate* (Carafate*), 1 GM ORAL FOUR TIMES A DAY Scheduled PRN Acetaminophen* (Acetaminophen 325MG Tablet*), 650 MG ORAL Q4H PRN for Pain Scale (3-5), (Reported) Albuterol Sulfate* (Albuterol Sulfate Mdi*), 2 PUFF INH Q6H PRN for Shortness of Breath, (Reported) Hydrocodone Bit/Acetaminophen 5-325* ([place] 5-325*), 1 TAB ORAL Q4H PRN for For Pain, (Reported) Magnesium Hydroxide* (Milk Of Magnesia*), 10 ML ORAL DAILY PRN for Constipation, (Reported) Ondansetron* (Zofran*), 4 MG ORAL Q4HR PRN for Nausea & Vomiting, (Reported) Phenyleph/Pramoxin/Glycr/W.pet (Preparation H Cream), 1 APPL RC DAILY PRN for HEMORRHOIDS, (Reported) Zolpidem Tartrate* (Ambien*), 5 MG ORAL BEDTIME PRN for Insomnia, (Reported) Miscellaneous Medications Diclofenac Sodium (Diclofenac Sodium), 100 GM TP, (Reported) Discontinued Medications Buspirone HCl* (Buspirone HCl*), 5 MG ORAL THREE TIMES A DAY, (Reported) Discontinued Reason: MD discontinued med Spironolactone* (Aldactone*), 200 MG ORAL BID, (Reported) Discontinued Reason: MD discontinued med Patient History History Provided By: Patient Healthcare decision maker Resuscitation status Full Code Advanced Directive on File Past Medical/Surgical History Past Medical/Surgical History: (1) Hemorrhoids (2) Diverticular hemorrhage (3) Anemia (4) Abnormal laboratory test result (5) Anxiety and depression (6) CHRONIC BACK PAIN AND BILATERAL KNEES (7) CHRONIC BACK PAIN AND BILATERAL KNEE PAIN (8) Edema Review of Systems Review of Symptoms General ROS: no weight loss or fever Psychological ROS: no depression or mood changes, no memory loss Ophthalmic ROS: no visual changes or eye irritation ENT ROS: no nasal congestion, hearing loss, dizziness Allergy and Immunology ROS: no allergic symptoms or urticaria Hematological and Lymphatic ROS: no swollen glands, unusual bleeding or bruising Endocrine ROS: no polyuria, polydipsia, weight changes, temperature intolerance Respiratory ROS: no cough, shortness of breath, or wheezing Cardiovascular ROS: no chest pain or dyspnea on exertion Gastrointestinal ROS: denies abdominal pain, bright red blood in stool. Musculoskeletal ROS: no myalgias or arthralgias Neurological ROS: no TIA or stroke symptoms Dermatological ROS: no new or changing skin lesions, rashes or pruritis Physical Exam Physical Exam General appearance: alert, cooperative, no distress, appears stated age Head: Normocephalic, without obvious abnormality, atraumatic Eyes: conjunctivae/corneas clear. PERRL, EOM's intact. Fundi benign Throat: Lips, mucosa, and tongue normal. Teeth and gums normal Neck: supple, symmetrical, trachea midline, no adenopathy, thyroid: not enlarged, symmetric, no tenderness/mass/nodules, no carotid bruit and no JVD Lungs: clear to auscultation bilaterally Heart: regular rate and rhythm, S1, S2 normal, no murmur, click, rub or gallop Abdomen: soft, non-tender. Bowel sounds normal. No masses, no organomegaly Extremities: extremities distal edema Pulses: 2+ and symmetric Skin: Skin color, texture, turgor normal. No rashes or lesions Neurologic: Grossly normal Last 24 Hour Vital Signs Date Time Temp Pulse Resp B/P (MAP) Pulse Ox O2 Delivery O2 Flow Rate FiO2 02/23/19 12:00 96.8 71 18 125/79 (94) 97 02/23/19 08:01 Room Air 02/23/19 07:24 98.2 74 18 111/69 (83) 96 02/23/19 04:00 97.9 71 18 126/82 (97) 96 02/23/19 00:00 97.7 81 18 118/60 (79) 96 02/22/19 21:00 Room Air 02/22/19 20:00 97.9 82 18 116/64 (81) 95 02/22/19 16:00 97.3 81 18 120/61 (80) 99 Intake and Output 02/22/19 02/23/19 19:00 07:00 Intake Total 610 ml 735 ml Balance 610 ml 735 ml Intake Oral 610 ml 480 ml IV Total 255 ml # Voids 3 4 # Bowel Movements 1 Height (Feet): 5 Height (Inches): 7.00 Weight (Pounds): 224 Assessment/Plan Problem List: (1) Ankle wound Assessment & Plan: Pt presented on admission with red plaque max/distal R tibia and medial /distal L tibia. Max/ distal R tibia red mildly indurated without elevation in skin temp (L) 4cm x (W)2.5cm. NO exudate noted. Medial/ Distal L tibia wound erythematous without induration or elevation in skin temp. NO exudate noted. Pt stated she developed both wounds after topical application of ICE (analgesic) at her home. Pt denied [pain at present but stated both sites were very painful for 3 days. good range of motion ambulatory Recommendations: Cleanse wounds R and L tibia with Saline. Apply Silvasorb gel. Cover each wound with Optifoam drsgs. Change every 3 days and prn. Elevate legs with pillow. Rx as per PCP for edema chf work up as per primary I had long discussion with patient about care plan at bedside. instructed to keep area moist and clean. keep covered as can rub against socks and shoes. monitor for improvement thank you ICD Codes: S91.009A - Unspecified open wound, unspecified ankle, initial encounter SNOMED: 775362, [id number], [id number], [id number] (2) Edema ICD Codes: R60.9 - Edema, unspecified SNOMED: [id number], [id number] Qualifiers: Qualified Codes: R60.9 - Edema, unspecified Kunal Magana Feb 23, 2019 15:59
--- NOTE | 2019-02-23 17:48 | General Progress Note ---
Progress Note Progress Note Patient seen and examined this morning Bilateral traumatic ankle abrasion skin wounds--patient has applied ice packs directly to skin Hx of alcoholic liver cirrhosis Bilateral leg mild edema Feet warm with intact dopplers No dvt on duplex Rec Compression leg dressing Ok for d/c F/U as outpatient; will need CT angio/MR d/w pt and nurse at bedside Jordan Fuentes MD Feb 23, 2019 17:48
--- NOTE | 2019-02-23 18:35 | Discharge Summary ---
Discharge Summary Discharge Summary _ DATE OF ADMISSION: 02/21/2019 DATE OF DISCHARGE: 02/23/2019 DISCHARGED BY: Dr. Del Rio REASON FOR ADMISSION: 63years old female with past medical history of liver cirrhosis, osteoarthritis , hypertension, dementia, presented with the swelling , redness and pain in the right lower extremity. Open lesion was noted at the right lower extremity Pain reported as 10 out of 10 , when she was trying to ambulate.No radiation of pain. Pain decreased when she was lying down. She denied history of diabetes. She denied any venous disease. She denied chest pain or shortness of breath. She denied fever, but felt chills. Upon evaluation vital signs were stable. Laboratory work-up revealed no leukocytosis , hemoglobin 11.2 ,hematocrit 32.8, platelet count 136. Stable electrolytes and renal parameters. Glucose 106. Lactic acid 1.4. AST 37 , ALT 19 , lipase 172. Troponin negative. pro BNP 64. EKG revealed sinus rhythm , no acute ischemic changes. Urinalysis revealed +3 leukocyte esterase and mild pyuria. Venous duplex bilateral lower extremity revealed no evidence of acute DVT. Right popliteal cyst noted. Chest x-ray revealed no acute disease. Patient received analgesic, started on broad-spectrum antibiotic and admitted to medical surgical floor for further management. CONSULTANTS: [facility] Patient admitted and started on empiric antibiotics. Home medication resumed. Pain management was addressed as needed. DVT prophylaxis provided. Blood pressure was closely monitored and remained stable. Patient was continued on propranolol and lactulose. GI prophylaxis and Carafate continued. Surgeon seen and evaluated patient for ankle wounds. Wound care provided as per surgeon recommendation. Leg elevation maintained. Vascular surgeon seen and evaluated patient. Recommended compression dressing and cleared patient for discharge . Vascular surgeon recommended outpatient CT angiogram. FINAL DIAGNOSES: Cellulitis Bilateral leg edema Bilateral traumatic ankle abrasion skin wound Hypertension Chronic pain Cirrhosis DISCHARGE MEDICATIONS: See Medication Reconciliation list. DISCHARGE INSTRUCTIONS: Patient was discharged to the alf facility. Follow up with medical doctor at the facility. I have been assigned to dictate discharge summary for this account. I was not involved in the patient's management. Allie Mcclendon NP Feb 23, 2019 18:35
== END 2019-02-23 15:33 | DRG 383 ==
LOC: EDUNIT# 13:06 → EDBD 13:06 → EDBEDREQ 13:57 → EMR 14:10 → 2E 14:19 → EDBEDREQ 17:00 → 4E 02-22 17:51
DX: L03.115 Cellulitis of right lower limb (principal); K70.31 Alcoholic cirrhosis of liver with ascites; I10 Essential (primary) hypertension; S90.512A Abrasion, left ankle, initial encounter; S90.511A Abrasion, right ankle, initial encounter; M54.9 Dorsalgia, unspecified; G89.29 Other chronic pain; R60.0 Localized edema; M19.90 Unspecified osteoarthritis, unspecified site; F03.90 Unspecified dementia, unspecified severity, without behavioral disturbance, psychotic disturbance, mood disturbance, and anxiety; Z88.8 Allergy status to other drugs, medicaments and biological substances; M71.21 Synovial cyst of popliteal space [Baker], right knee; Z66 Do not resuscitate; R53.1 Weakness
CPT/HCPCS: 36415; 71045; 80053; 81003; 82550; 82553; 83605; 83690; 83735; 83880; 84484; 85025; 85610; 85730; 87040; 87070; 87081; 87181; 87205; 90471; 90715; 93005; 93925; 93971; 96365; 96368; 96375; 99285; J2405; J7030

== ENCOUNTER 2019-11-02 15:29 | Inpatient (IN) | payer MEDICAID ==
[~2019-11-02] VITALS: Ht 167.6 cm; Wt 122.5 kg
[~2019-11-02 15:29] MED LIST changes: +CEPHALEXIN500 MG ORAL; +KEPPRA500 MG ORAL
--- NOTE | 2019-11-02 15:36 | Emergency Room Report ---
History of Present Illness General Chief Complaint: Anemia Source: Patient, Medical Record, EMS Present Illness HPI Patient is a 63-year-old female past medical history of liver cirrhosis, anemia , osteoporosis, and hypertension who presents to the ER for abnormal labs. Patient was brought in by EMS from her extended care facility. Patient's labs demonstrate low hemoglobin. Patient complains of generalized weakness and body aches. She also complains of exertional shortness of breath. She denies any shortness of breath at rest. She denies any fever or chills. She denies any chest pain. She denies any abdominal pain nausea or vomiting. She denies any cough. Patient states she felt similarly in the past when she had anemia. Patient denies any discs urea or hematuria. She denies any bloody or dark bowel movements. Allergies: Coded Allergies: PROPOXYPHENE (Verified Allergy, Unknown, 08/25/18) Patient History Reviewed Nursing Documentation: PMH: Agreed; PSxH: Agreed Nursing Documentation-PMH Hx Cardiac Problems: Yes Hx Hypertension: Yes - ESSENTIAL (PRIMARY) HYPERTENSION Hx Cancer: No Hx Gastrointestinal Problems: Yes - hernia Hx Neurological Problems: Yes Hx Dementia: Yes - UNSPECIFIED DEMENTIA WITHOUT BEHAVIORAL DISTURBANCE Review of Systems All Other Systems: negative except mentioned in HPI Physical Exam Sp02 EP Interpretation: reviewed, normal General Appearance: no apparent distress, alert, GCS 15, non-toxic Head: normocephalic, atraumatic Eyes: bilateral eye normal inspection, bilateral eye PERRL, bilateral eye conjunctivae pale ENT: hearing grossly normal, normal pharynx, no angioedema, normal voice Neck: full range of motion, supple/symm/no masses Respiratory: chest non-tender, lungs clear, normal breath sounds, speaking full sentences Cardiovascular #1: regular rate, rhythm, no edema Cardiovascular #2: 2+ carotid (R), 2+ carotid (L) Gastrointestinal: normal bowel sounds, non tender, soft, non-distended, no guarding, no rebound Rectal: deferred Musculoskeletal: no calf tenderness, other - Bilateral anterior knee tenderness to palpation states is chronic from her osteoporosis. Neurologic: impersonator character III-XII nml as tested Psychiatric: no suicidal/homicidal ideation Skin: no rash Lymphatic: no adenopathy Procedures Critical Care Time Critical Care Time Total critical care time: Approximately 35 minutes. Due to a high probability of clinically significant, life threatening deterioration, the patient required my highest level of preparedness to intervene emergently and I personally spent this critical care time directly and personally managing the patient. This critical care time included obtaining a history; examining the patient; pulse oximetry; ordering and review of studies; arranging urgent treatment with development of a management plan; evaluation of patient's response to treatment ; frequent reassessment; and, discussions with other providers.This critical care time was performed to assess and manage the high probability of imminent, life-threatening deterioration that could result in multi-organ failure. It was exclusive of separately billable procedures and treating other patients and teaching time. Please see MDM section and the rest of the note for further information on patient assessment and treatment. Medical Decision Making Diagnostic Impression: Primary Impression: Symptomatic anemia Additional Impression: Exertional dyspnea ER Course Patient has history of anemia in the past. Patient complains of exertional shortness of breath. Patient's hemoglobin is 7. No active signs of bleeding. 1 unit of packed red blood cells has been ordered. Patient will be admitted for further treatment and evaluation. Laboratory Tests Test 11/02/19 15:36 White Blood Count 5.9 K/UL (4.8-10.8) Red Blood Count 4.17 M/UL (4.20-5.40) L Hemoglobin 7.0 G/DL (12.0-16.0) L Hematocrit 24.1 % (37.0-47.0) L Mean Corpuscular Volume 58 FL (80-99) L Mean Corpuscular Hemoglobin 16.4 PG (27.0-31.0) L Mean Corpuscular Hemoglobin Concent 28.4 G/DL (32.0-36.0) L Red Cell Distribution Width 17.2 % (11.6-14.8) H Platelet Count 225 K/UL (150-450) Mean Platelet Volume 10.5 FL (6.5-10.1) H Neutrophils (%) (Auto) % (45.0-75.0) Lymphocytes (%) (Auto) % (20.0-45.0) Monocytes (%) (Auto) % (1.0-10.0) Eosinophils (%) (Auto) % (0.0-3.0) Basophils (%) (Auto) % (0.0-2.0) Prothrombin Time 11.3 SEC (9.30-11.50) Prothrombin Time INR 1.0 (0.9-1.1) Activated Partial Thromboplast Time 25 SEC (23-33) Sodium Level 142 MMOL/L (136-145) Potassium Level 5.1 MMOL/L (3.5-5.1) Chloride Level 103 MMOL/L (98-107) Carbon Dioxide Level 37 MMOL/L (21-32) H Anion Gap 2 mmol/L (5-15) L Blood Urea Nitrogen 14 mg/dL (7-18) Creatinine 1.0 MG/DL (0.55-1.30) Estimated Glomerular Filtration Rate 56.0 mL/min (>60) Glucose Level 136 MG/DL (74-106) H Calcium Level 8.7 MG/DL (8.5-10.1) Magnesium Level 2.0 MG/DL (1.8-2.4) Total Bilirubin 0.6 MG/DL (0.2-1.0) Aspartate Amino Transferase (AST) 86 U/L (15-37) H Alanine Aminotransferase (ALT) 26 U/L (12-78) Alkaline Phosphatase 254 U/L (46-116) H Troponin I 0.000 ng/mL (0.000-0.056) Pro-B-Type Natriuretic Peptide 279 pg/mL (0-125) H Total Protein 8.1 G/DL (6.4-8.2) Albumin 2.9 G/DL (3.4-5.0) L Globulin 5.2 g/dL Albumin/Globulin Ratio 0.6 (1.0-2.7) L EKG Diagnostic Results EKG Time: 15:58 EP Interpretation: Yue Tomas MD Rate: normal - 68 bpm Rhythm: NSR ST Segments: no acute changes ASA given to the pt in ED: No Rhythm Strip Diag. Results Rhythm Strip Time: 16:05 EP Interpretation: yes - Yue Tomas MD Rate: 69 bpm Rhythm: NSR, no PVC's, no ectopy Chest X-Ray Diagnostic Results Chest X-Ray Diagnostic Results : Chest X-Ray Ordered: Yes # of Views/Limited/Complete: 1 View Indication: Shortness of Breath EP Interpretation: Yes Interpretation: no consolidation, no effusion, no pneumothorax, no acute cardiopulmonary disease Impression: No acute disease Electronically Signed by: Yue Tomas MD Disposition: PLACE IN OBSERVATION - Medical Floor Condition: Critical Physician Consult: Dr. Del Rio at bedside evaluation patient and will be admitting. Additional Instructions: Please note that this report is being documented using [employer]ac[employer] technology. This can lead to erroneous entry secondary to incorrect interpretation by the dictating instrument. Yue Tomas M.D. Nov 02, 2019 15:36
[2019-11-02 15:55] VITALS: BP 119/98
[2019-11-02] MEDS ORDERED: INDERAL LA60 MG ORAL (15:58)
[2019-11-02] MEDS ORDERED: LEXAPRO10 MG ORAL (16:00)
[2019-11-02] MEDS ORDERED: ZYPREXA5 MG ORAL (16:02)
[2019-11-02 16:14] LABS: ANION GAP 2 mmol/L (5-15); BLOOD UREA NITROGEN 14 mg/dL (7-18); CALCIUM 8.7 MG/DL (8.5-10.1); CARBON DIOXIDE 37 MMOL/L (21-32); CHLORIDE 103 MMOL/L (98-107); POTASSIUM 5.1 MMOL/L (3.5-5.1); SODIUM 142 MMOL/L (136-145)
--- NOTE | 2019-11-02 16:20 | Diagnostic Imaging Report ---
Indication: Shortness of breath Technique: One view of the chest Comparison: 02/21/2019 Findings: Large retrocardiac hiatal hernia noted. The lungs and pleural spaces are clear. The heart size is upper limits normal Impression: Hiatal hernia. No acute process
[2019-11-02 16:25] LABS: ALANINE AMINOTRANSFERASE 26 U/L (12-78); ALBUMIN 2.9 G/DL (3.4-5.0); ALBUMIN/GLOBULIN RATIO 0.6 (1.0-2.7); ALKALINE PHOSPHATASE 254 U/L (46-116); ASPARTATE AMINO TRANSFERASE 86 U/L (15-37); BILIRUBIN,TOTAL 0.6 MG/DL (0.2-1.0)
[2019-11-02 16:35] LABS: HEMATOCRIT 24.1 % (37.0-47.0); MEAN CORPUSCULAR VOLUME 58 FL (80-99); PLATELET COUNT 225 K/UL (150-450); RED BLOOD COUNT 4.17 M/UL (4.20-5.40); RED CELL DISTRIBUTION WIDTH 17.2 % (11.6-14.8); WHITE BLOOD COUNT 5.9 K/UL (4.8-10.8)
[2019-11-02 17:51] VITALS: BP 121/98
[2019-11-02] MEDS ORDERED: HYDROcodone/Acetamin 5/325 tab ORAL ONE (18:30)
--- NOTE | 2019-11-02 18:30 | History and Physical Report ---
DATE OF AADMISSION: 11/02/2019 SUBJECTIVE: The patient is a 63-year-old white female who [facility] because she was short of breath and was found to have a hemoglobin of about 6.6. The patient also has trace edema on both legs. PAST MEDICAL HISTORY: The patient is currently alert, oriented, complaining of edema, and currently in pain on both legs. PAST MEDICAL HISTORY: Significant for cirrhosis, chronic back pain, chronic leg pain, obese, weight gain, allergy. FAMILY HISTORY: Noncontributory. SOCIAL HISTORY: Lives at a penitentiary. The patient walks with minimal assistance. REVIEW OF SYSTEMS: Generalized weakness. Tired. Short of breath on exertion. PHYSICAL EXAMINATION: VITAL SIGNS: Blood pressure is 130/70, pulse 84, respirations 18. No fever. SKIN: Good skin turgor. HEENT: PERRLA. NECK: Supple. No JVD. CHEST: Bilateral decreased breath sounds. CARDIOVASCULAR: Regular rhythm. No gallop. No murmur. ABDOMEN: Soft. Positive bowel sounds. Nontender. EXTREMITIES: Trace edema. GENITOURINARY: Deferred. LABORATORY EXAMINATIONS: Pending. ASSESSMENT AND PLAN: 1. Symptomatic anemia. 2. Short of breath. 3. Leg edema. 4. History of chronic pain. 5. Hypertension. We will admit her in [facility], start type and cross, transfuse 1 unit if hemoglobin is less than 8. Check stool occult blood x2. Consider GI consult. Start pain medication, tramadol, and consider GI consult. We will monitor CBC, BMP tomorrow. Alejandro Del Rio M.D. DR: NAZARIO JOB#: [id number] CC: JOSE
[2019-11-02 19:01] VITALS: BP 122/72
[2019-11-02 20:00] VITALS: BP 147/78
[2019-11-02] MEDS ORDERED: traMADol 50mg tab ORAL PRN (21:30)
[2019-11-03] VITALS: BP 120/74
[2019-11-03 04:00] VITALS: BP 114/75
[2019-11-03 05:13] LABS: BASOPHILS % (AUTO) 1.1 % (0.0-2.0); EOSINOPHILS % (AUTO) 2.7 % (0.0-3.0); HEMATOCRIT 30.8 % (37.0-47.0); HEMOGLOBIN 8.9 G/DL (12.0-16.0); LYMPHOCYTES % (AUTO) 36.7 % (20.0-45.0); MEAN CORPUSCULAR VOLUME 65 FL (80-99); MONOCYTES % (AUTO) 10.1 % (1.0-10.0); NEUTROPHILS % (AUTO) 49.5 % (45.0-75.0); PLATELET COUNT 184 K/UL (150-450); RED BLOOD COUNT 4.73 M/UL (4.20-5.40); RED CELL DISTRIBUTION WIDTH 22.2 % (11.6-14.8); WHITE BLOOD COUNT 4.5 K/UL (4.8-10.8)
[2019-11-03 05:26] LABS: ANION GAP 6 mmol/L (5-15); BLOOD UREA NITROGEN 10 mg/dL (7-18); CALCIUM 8.9 MG/DL (8.5-10.1); CARBON DIOXIDE 33 MMOL/L (21-32); CHLORIDE 104 MMOL/L (98-107); POTASSIUM 3.3 MMOL/L (3.5-5.1); SODIUM 143 MMOL/L (136-145)
[2019-11-03 08:00] VITALS: BP 123/72
[2019-11-03] MEDS: LORazepam 1mg tab ORAL PRN (08:59)
[2019-11-03] MEDS: HYDROcodone/Acetamin 5/325 tab ORAL PRN ×2 (11:29→16:41)
[2019-11-03 11:58] VITALS: BP 121/71
[2019-11-03] MEDS ORDERED: PARoxetine HCL 20mg tab ORAL SCH (12:00)
[2019-11-03] MEDS ORDERED: Bisacodyl EC 5mg tab ORAL SCH (12:13)
--- NOTE | 2019-11-03 12:16 | General Progress Note ---
Assessment/Plan Problem List: (1) Cirrhosis ICD Codes: K74.60 - Unspecified cirrhosis of liver SNOMED: 16777056 (2) Anemia (3) Symptomatic anemia ICD Codes: D64.9 - Anemia, unspecified SNOMED: 097759780 (4) Anxiety and depression ICD Codes: F41.9 - Anxiety disorder, unspecified; F32.9 - Major depressive disorder, single episode, unspecified SNOMED: 433656131 (5) Diverticular hemorrhage ICD Codes: K57.31 - Diverticulosis of large intestine without perforation or abscess with bleeding SNOMED: 877481743, 301475230 (6) Hemorrhoids ICD Codes: K64.9 - Unspecified hemorrhoids SNOMED: 16888496 Assessment/Plan: EGD and colonoscopy in 2019: SUMMARY OF FINDINGS: 1. Large hiatal hernia with associated Nir ulcerations and also distal esophagitis. 2. Gastritis, status post biopsy. 3. Challenging colonoscopy given diverticulosis in the sigmoid colon. 4. Poor prep. 5. Five colonic polyps removed, see above for details. 6. Internal hemorrhoids. plan EGD and colonoscopy for tomorrow Subjective ROS Limited/Unobtainable: Yes Allergies: Coded Allergies: PROPOXYPHENE (Verified Allergy, Unknown, 08/25/18) Objective Last 24 Hour Vital Signs Date Time Temp Pulse Resp B/P (MAP) Pulse Ox O2 Delivery O2 Flow Rate FiO2 11/03/19 11:59 97.7 11/03/19 11:58 97.7 73 20 121/71 (88) 97 11/03/19 09:00 Room Air 11/03/19 08:00 97.7 74 20 123/72 (89) 94 11/03/19 04:00 97.5 72 18 114/75 (88) 97 11/03/19 00:00 96.8 72 20 120/74 (89) 96 11/02/19 23:17 Room Air 11/02/19 20:00 97.9 84 20 147/78 (101) 95 11/02/19 19:01 97.2 73 18 122/72 (89) 98 11/02/19 18:45 97.2 11/02/19 18:45 97.2 87 18 126/96 99 Room Air 11/02/19 17:51 97.2 80 17 121/98 98 Room Air 11/02/19 16:00 119/97 11/02/19 15:55 97.2 86 18 119/98 99 Room Air 11/02/19 15:30 97.2 74 16 189/119 (142) 97 Room Air Intake and Output 11/02/19 11/03/19 19:00 07:00 Intake Total 0 ml Output Total 500 ml Balance 0 ml -500 ml Intake Oral 0 ml Output Other 500 ml # Voids 1 4 # Bowel Movements 2 Laboratory Tests 11/02/19 15:36: White Blood Count 5.9, Red Blood Count 4.17L, Hemoglobin 7.0L, Hematocrit 24.1L , Mean Corpuscular Volume 58L, Mean Corpuscular Hemoglobin 16.4L, Mean Corpuscular Hemoglobin Concent 28.4L, Red Cell Distribution Width 17.2H, Platelet Count 225, Mean Platelet Volume 10.5H, Neutrophils (%) (Auto) , Lymphocytes (%) (Auto) , Monocytes (%) (Auto) , Eosinophils (%) (Auto) , Basophils (%) (Auto) , Prothrombin Time 11.3, Prothromb Time International Ratio 1.0, Activated Partial Thromboplast Time 25, Sodium Level 142, Potassium Level 5.1, Chloride Level 103, Carbon Dioxide Level 37H, Anion Gap 2L, Blood Urea Nitrogen 14, Creatinine 1.0, Estimat Glomerular Filtration Rate 56.0, Glucose Level 136H, Calcium Level 8.7, Magnesium Level 2.0, Total Bilirubin 0.6 , Aspartate Amino Transf (AST/SGOT) 86H, Alanine Aminotransferase (ALT/SGPT) 26 , Alkaline Phosphatase 254H, Troponin I 0.000, Pro-B-Type Natriuretic Peptide 279H, Total Protein 8.1, Albumin 2.9L, Globulin 5.2, Albumin/Globulin Ratio 0.6L 11/03/19 04:48: White Blood Count 4.5L, Red Blood Count 4.73, Hemoglobin 8.9L, Hematocrit 30.8L , Mean Corpuscular Volume 65#L, Mean Corpuscular Hemoglobin 18.7L, Mean Corpuscular Hemoglobin Concent 28.7L, Red Cell Distribution Width 22.2H, Platelet Count 184, Mean Platelet Volume 8.5, Neutrophils (%) (Auto) 49.5, Lymphocytes (%) (Auto) 36.7, Monocytes (%) (Auto) 10.1H, Eosinophils (%) (Auto) 2.7, Basophils (%) (Auto) 1.1, Sodium Level 143, Potassium Level 3.3L, Chloride Level 104, Carbon Dioxide Level 33H, Anion Gap 6, Blood Urea Nitrogen 10, Creatinine 1.0, Estimat Glomerular Filtration Rate 56.0, Glucose Level 134H, Calcium Level 8.9 11/03/19 05:00: Stool Occult Blood [Pending] Height (Feet): 5 Height (Inches): 7.00 Weight (Pounds): 270 General Appearance: no apparent distress EENT: normal ENT inspection Neck: supple Cardiovascular: normal rate Respiratory/Chest: decreased breath sounds Abdomen: normal bowel sounds, non tender, soft Extremities: non-tender Vahe Chávez MD Nov 03, 2019 12:16
--- NOTE | 2019-11-03 14:30 | Progress Note ---
DATE: 11/03/2019 SUBJECTIVE: This is a 63-year-old female came yesterday with GI bleed. She is a DNR. The patient was transfused last night because low hemoglobin. OBJECTIVE: VITAL SIGNS: Current blood pressure 123/72, pulse 74, temperature 97.7. HEENT: NAD. CHEST: Bilaterally clear. CARDIOVASCULAR: Regular rhythm. ABDOMEN: Soft. EXTREMITIES: Trace edema GENITOURINARY: Deferred. LABORATORY DATA: Yesterday hemoglobin was 7. After transfusion, current hemoglobin 8.9, white count 4.5, and platelets 184,000. Chemistry panel, BUN 10, creatinine 1, glucose 134. ASSESSMENT: 1. Anemia. 2. Possible rule out GI bleed. 3. Depression. 4. Comorbid obesity. 5. Chronic pain. 6. History of cirrhosis. PLAN: We will add packed cell and add [place] for severe pain. Awaiting for GI consult. Alejandro Del Rio M.D. DR: THOMAS JOB#: [id number] CC:
[2019-11-03] MEDS ORDERED: Nulytely 4L ORAL SCH (16:00)
[2019-11-03 16:05] VITALS: BP 119/85
[2019-11-03] MEDS: D5 1/2NS w/KCl 20mEq 1,000 ML IV SCH (16:29)
--- NOTE | 2019-11-03 17:13 | Diagnostic Imaging Report ---
Indication: Abdominal pain, abnormal liver function tests, anemia Technique: Vieira-scale and duplex images of the upper abdomen were obtained Comparison: none Findings: Gallbladder is unremarkable, without stones, wall thickening, nor pericholecystic fluid. Sonographic Quiñonez's sign is negative. Common bile duct measures 6 mm in diameter. No intrahepatic biliary ductal dilatation. Liver demonstrates slightly coarsened echogenicity and slight surface nodularity. It is mildly enlarged Portal vein and hepatic veins are patent. Pancreas is incompletely visualized due to overlying bowel gas, visualized portions are unremarkable. The main pancreatic duct is mildly dilated. Spleen is unremarkable. Left kidney measures 11.4 cm in length. Right kidney measures 9.3 cm length. Both kidneys demonstrate normal echogenicity. There is no hydronephrosis. No focal abnormality . Non-aneurysmal abdominal aorta . Impression: Negative for gallstones or dilated bile ducts Slightly coarsened hepatic echogenicity and surface nodularity, could indicate cirrhotic change. Correlate with clinical findings Nonspecific ectasia of the main pancreatic duct
[2019-11-03 20:00] VITALS: BP 118/83
[2019-11-03] MEDS ORDERED: Zolpidem 5mg tab ORAL PRN (21:00)
--- NOTE | 2019-11-03 23:49 | Initial Psychiatric Evaluation ---
Psychiatry Consultation Psychiatry Consultation Chief Complaint: Abnormal Labs History of Present Illness: 63-year-old female past medical history of liver cirrhosis, anemia, osteoporosis , and hypertension who presents to the ER or medical stab. the pt is well known to me rom [facility]/ the pt is anxious and depressed. multiple complaints. no si/hi Allergies: Coded Allergies: PROPOXYPHENE (Verified Allergy, Unknown, 08/25/18) Past Psychiatric History: hx o mdd anxiety on meds no sa Medical History: hts dm obesity Medication History Scheduled Cyclobenzaprine Hcl* (Flexeril*), 10 MG ORAL BID, (Reported) Escitalopram Oxalate* (Lexapro*), 10 MG ORAL DAILY, (Reported) Furosemide* (Lasix*), 20 MG ORAL BID, (Reported) Gabapentin* (Gabapentin*), 600 MG ORAL TWICE A DAY, (Reported) Lactulose (Lactulose*), 30 ML ORAL QID, (Reported) Lidocaine Patch* (Lidoderm Patch*), 2 PATCH TOPIC DAILY, (Reported) Multivitamin With Minerals (Multivitamins With Minerals*), 1 TAB ORAL DAILY, ( Reported) Olanzapine* (Zyprexa*), 5 MG ORAL TID, (Reported) Pantoprazole* (Pantoprazole*), 40 MG ORAL DAILY Paroxetine Hcl* (Paxil*), 40 MG PO BEDTIME, (Reported) Potassium Chloride* (K-Dur*), 10 MEQ ORAL DAILY, (Reported) Propranolol Hcl* (Inderal La*), 10 MG ORAL BID, (Reported) Sennosides (Senna), 17.2 MG PO BEDTIME, (Reported) Sucralfate* (Carafate*), 1 GM ORAL FOUR TIMES A DAY Scheduled PRN Albuterol Sulfate* (Albuterol Sulfate Mdi*), 2 PUFF INH Q6H PRN for Shortness of Breath, (Reported) Hydrocodone Bit/Acetaminophen 5-325* ([place] 5-325*), 1 TAB ORAL Q4H PRN for For Pain, (Reported) Magnesium Hydroxide* (Milk Of Magnesia*), 10 ML ORAL DAILY PRN for Constipation, (Reported) Phenyleph/Pramoxin/Glycr/W.pet (Preparation H Cream), 1 APPL RC DAILY PRN for HEMORRHOIDS, (Reported) Miscellaneous Medications Diclofenac Sodium (Diclofenac Sodium), 100 GM TP, (Reported) Discontinued Medications Acetaminophen* (Acetaminophen 325MG Tablet*), 650 MG ORAL Q4H PRN for Pain Scale (3-5), (Reported) Discontinued Reason: Therapy completed Cephalexin* (Keflex*), 500 MG ORAL TID, (Reported) Discontinued Reason: Therapy completed Lorazepam* (Ativan*), 1 MG ORAL BEDTIME, (Reported) Discontinued Reason: Therapy completed Olanzapine* (Zyprexa*), 5 MG ORAL THREE TIMES A DAY, (Reported) Discontinued Reason: Therapy completed Ondansetron* (Zofran*), 4 MG ORAL Q4HR PRN for Nausea & Vomiting, (Reported) Discontinued Reason: Therapy completed Paroxetine Hcl* (Paxil*), 40 MG PO EVENING, (Reported) Discontinued Reason: Therapy completed Propranolol Hcl* (Inderal La*), 60 MG ORAL DAILY, (Reported) Discontinued Reason: Medication dose changed Zolpidem Tartrate* (Ambien*), 5 MG ORAL BEDTIME PRN for Insomnia, (Reported) Discontinued Reason: Therapy completed Patient History History Provided By: Patient, Medical Record, PMD Objective Data Height (Feet): 5 Height (Inches): 7.00 Weight (Pounds): 270 Appearance: no abnormalities noted Behavior Mannerisms: good eye contact Affect: blunted Mood: depressed, irritable Speech: clear Thought Process: goal-directed Suicidal Ideation: not present Assessment/Plan Problem List: (1) Anxiety and depression ICD Codes: F41.9 - Anxiety disorder, unspecified; F32.9 - Major depressive disorder, single episode, unspecified SNOMED: 737101554 Assessment/Plan: bing zyprexa bing paxil remeron Leatha Rebollar MD Nov 03, 2019 23:49
[2019-11-04] VITALS (10 sets, daily range): BP systolic 126–157; BP diastolic 67–98
[2019-11-04] MEDS: D5 1/2NS w/KCl 20mEq 1,000 ML IV SCH ×2 (05:20→17:57)
[2019-11-04 06:04] LABS: EOSINOPHILS % (AUTO) 2.6 % (0.0-3.0); HEMATOCRIT 31.7 % (37.0-47.0); HEMOGLOBIN 8.9 G/DL (12.0-16.0); LYMPHOCYTES % (AUTO) 32.8 % (20.0-45.0); MEAN CORPUSCULAR VOLUME 66 FL (80-99); MONOCYTES % (AUTO) 8.8 % (1.0-10.0); NEUTROPHILS % (AUTO) 53.7 % (45.0-75.0); PLATELET COUNT 173 K/UL (150-450); RED BLOOD COUNT 4.79 M/UL (4.20-5.40); WHITE BLOOD COUNT 4.2 K/UL (4.8-10.8)
[2019-11-04 06:26] LABS: ANION GAP 8 mmol/L (5-15); BLOOD UREA NITROGEN 12 mg/dL (7-18); CARBON DIOXIDE 30 MMOL/L (21-32); CHLORIDE 105 MMOL/L (98-107); POTASSIUM 3.6 MMOL/L (3.5-5.1); SODIUM 143 MMOL/L (136-145)
[2019-11-04] MEDS ORDERED: PARoxetine HCL 20mg tab ORAL SCH (09:00)
[2019-11-04] MEDS ORDERED: LR 1000ml ONE (10:00)
[2019-11-04] MEDS ORDERED: Lidocaine 1% MPF 10mg/ml 5ml ONE (10:00)
[2019-11-04] MEDS ORDERED: NS 500ML IVPB ONE (10:02)
--- NOTE | 2019-11-04 10:02 | Pre-Procedure Note/Attestation ---
Pre-Procedure Note/Attestation Complete Prior to Procedure Planned Procedure: not applicable Procedure Narrative: esophagogastroduodenoscopy and colonoscopy Indications for Procedure Pre-Operative Diagnosis: gib Attestation I attest that I discussed the nature of the procedure; its benefits; risks and complications; and alternatives (and the risks and benefits of such alternatives ), prior to the procedure, with the patient (or the patient's legal fundraising sale representative). I attest that, if there was a reasonable possibility of needing a blood transfusion, the patient (or the patient's legal fundraising sale representative) was given the [facility] standardized written summary, pursuant to the [place] Blood Safety Act ([place] Health and Safety Code # 1645, as amended). I attest that I re-evaluated the patient just prior to the surgery and that there has been no change in the patient's H&P, except as documented below: Vahe Chávez MD Nov 04, 2019 10:02
[2019-11-04] MEDS ORDERED: LR 1000ml 1,000 ML IVLG SCH (10:07)
[2019-11-04] MEDS ORDERED: Midazolam 2mg/2ml Inj IVP PRN (10:15)
[2019-11-04] MEDS ORDERED: DiphenhydrAMINE 50mg/ml Inj IVP PRN (10:15)
[2019-11-04] MEDS ORDERED: Atropine Sulfate 0.4mg/ml inj IVP PRN (10:15)
[2019-11-04] MEDS ORDERED: Labetalol 5mg/ml 20ml vial IV PRN (10:15)
[2019-11-04] MEDS ORDERED: fentaNYL 100 mcg/2 mL IV PRN (10:15)
[2019-11-04] MEDS ORDERED: Ketorolac 30mg Inj IV PRN ×2 (10:15)
[2019-11-04] MEDS ORDERED: HYDROcodone/Acetamin 5/325 tab ORAL PRN (10:15)
[2019-11-04] MEDS ORDERED: oxyCODONE HCL/Acetaminophen 5/325mg ORAL PRN (10:15)
[2019-11-04] MEDS ORDERED: Hydromorphone 0.5mg/0.5ml inj IVP PRN (10:15)
[2019-11-04] MEDS ORDERED: HYDROcodone/Acetamin 7.5/325 tab ORAL PRN (10:15)
[2019-11-04] MEDS ORDERED: LORazepam Inj 2mg/ml 1ml IV PRN (10:15)
--- NOTE | 2019-11-04 10:23 | Anethesia Preoperative Eval ---
Anesthesia Pre-op PMH/ROS General Date of Evaluation: Nov 04, 2019 Time of Evaluation: 09:54 Anesthesiologist: Anand ASA Score: ASA 4 Mallampati Score Class I : Soft palate, uvula, fauces, pillars visible Class II: Soft palate, uvula, fauces visible Class III: Soft palate, base of uvula visible Class IV: Only hard plate visible Mallampati Classification: Class III Surgeon: Saira Diagnosis: Abd Pain Surgical Procedure: EGD/Colonoscopy Anesthesia History: none Family History: no anesthesia problems Allergies: Coded Allergies: PROPOXYPHENE (Verified Allergy, Unknown, 08/25/18) Medications: see eMAR Patient NPO?: Yes Past Medical History Cardiovascular: Reports: HTN Gastrointestinal/Genitourinary: Reports: GERD, other - GI Ulcer, Cirrohsis Neurologic/Psychiatric: Reports: dementia, depression/anxiety Hematology/Immune: Reports: anemia Other: obesity - Morbid BMI 44 Anesthesia Pre-op Phys. Exam Physician Exam Last Vital Signs Date Time Temp Pulse Resp B/P (MAP) Pulse Ox O2 Delivery O2 Flow Rate FiO2 11/04/19 09:00 Room Air 11/04/19 08:00 97.7 79 20 144/82 (102) 97 Constitutional: NAD Neurologic: CN 2-12 intact Cardiovascular: RRR Respiratory: CTA Gastrointestinal: S/NT/ND Airway Exam Mallampati Score: Class III MO: limited ROM: limited Teeth: missing, intact Anesthesia Pre-op A/P Labs Hematology Test 11/04/19 05:55 White Blood Count 4.2 K/UL (4.8-10.8) L Red Blood Count 4.79 M/UL (4.20-5.40) Hemoglobin 8.9 G/DL (12.0-16.0) L Hematocrit 31.7 % (37.0-47.0) L Mean Corpuscular Volume 66 FL (80-99) L Mean Corpuscular Hemoglobin 18.5 PG (27.0-31.0) L Mean Corpuscular Hemoglobin Concent 28.0 G/DL (32.0-36.0) L Red Cell Distribution Width 23.0 % (11.6-14.8) H Platelet Count 173 K/UL (150-450) Mean Platelet Volume 8.7 FL (6.5-10.1) Neutrophils (%) (Auto) 53.7 % (45.0-75.0) Lymphocytes (%) (Auto) 32.8 % (20.0-45.0) Monocytes (%) (Auto) 8.8 % (1.0-10.0) Eosinophils (%) (Auto) 2.6 % (0.0-3.0) Basophils (%) (Auto) 2.0 % (0.0-2.0) Chemistry Test 11/04/19 05:55 Sodium Level 143 MMOL/L (136-145) Potassium Level 3.6 MMOL/L (3.5-5.1) Chloride Level 105 MMOL/L (98-107) Carbon Dioxide Level 30 MMOL/L (21-32) Anion Gap 8 mmol/L (5-15) Blood Urea Nitrogen 12 mg/dL (7-18) Creatinine 1.0 MG/DL (0.55-1.30) Estimat Glomerular Filtration Rate 56.0 mL/min (>60) Glucose Level 116 MG/DL (74-106) H Calcium Level 9.0 MG/DL (8.5-10.1) Risk Assessment & Plan Assessment: ASA 4 Plan: GA Status Change Before Surgery: Baron Valentino MD Nov 04, 2019 10:22
--- NOTE | 2019-11-04 10:24 | Immediate Post-Op Evaluation ---
Immediate Post-Op Evalulation Immediate Post-Op Evalulation Procedure: EGD/Colonoscopy Date of Evaluation: Nov 04, 2019 Time of Evaluation: 10:54 IV Fluids: 500 NS Blood Products: 0 Estimated Blood Loss: 2 Urinary Output: 0 Blood Pressure Systolic: 143 Blood Pressure Diastolic: 75 Pulse Rate: 99 Respiratory Rate: 16 O2 Sat by Pulse Oximetry: 100 Temperature (Fahrenheit): 98 Pain Score (1-10): 1 Nausea: No Vomiting: No Complications 0 Patient Status: awake, reacts, patent, none Hydration Status: adequate Baron Michel MD Nov 04, 2019 10:24
--- NOTE | 2019-11-04 10:25 | 48 Hour Post Anesthesia Eval ---
Post Anesthesia Evaluation Procedure: EGD/Colonoscopy Date of Evaluation: Nov 04, 2019 Time of Evaluation: 12:32 Blood Pressure Systolic: 147 0: 78 Pulse Rate: 89 Respiratory Rate: 18 Temperature (Fahrenheit): 98.2 O2 Sat by Pulse Oximetry: 99 Airway: patent Nausea: No Vomiting: No Pain Intensity: 1 Hydration Status: adequate Cardiopulmonary Status: Stable Mental Status/LOC: patient returned to baseline Follow-up Care/Observations: 0 Post-Anesthesia Complications: 0 Follow-up care needed: N/A Baron Michel MD Nov 04, 2019 10:25
--- NOTE | 2019-11-04 10:39 | Endoscopy Procedure Note ---
Endoscopy Procedure Note General Indication for Procedure: anemia Procedures Performed: EGD, colonoscopy Operative Findings/Diagnosis: gastritis, 3 polyps Specimen: yes Pt Tolerated Procedure Well: Yes Estimated Blood Loss: none Anesthesia Anesthesiologist: shazia Anesthesia: MAC Inserted Devices Implant(s) used?: No Quality Quality of Bowel Preparation: Good Did scope reach the cecum?: Yes Was there any complications?: No GI Core Measures 50 yrs or older w/o bx or poly: Not Applicable 10yrs. F/U recommended: Not Applicable If not recommended, why?: Above average risk Vahe Chávez MD Nov 04, 2019 10:38
--- NOTE | 2019-11-04 12:15 | Procedure Note ---
DATE OF PROCEDURE: 11/04/2019 SURGEON: Vahe Chávez MD. REFERRING PHYSICIAN: Joshua Del Rio MD. PROCEDURE: Upper endoscopy with biopsy and colonoscopy with snare polypectomy and biopsy. ANESTHESIA: Per Dr. Baron Vera. INSTRUMENT: Olympus adult flexible upper endoscope and colonoscope. INDICATION: Anemia. REASON FOR PROCEDURE: The procedure, risks, benefits, and possible consequences, including hemorrhage, aspiration, perforation and infection, and alternative treatments, were explained to the patient/legal guardian by Dr. Vahe Chávez and the patient/legal guardian understood and accepted these risks. PROCEDURE IN DETAIL: After informed consent was obtained and the patient was adequately sedated, Olympus upper endoscope was advanced from the mouth into second portion of the duodenum and retroflexion was performed in the stomach. The patient had evidence of one column of distal esophageal varices without any stigmata of the bleeding, grade 2. The patient has evidence of large hiatal hernia. At this time, we did not see any Nir ulcerations, which we saw in the last admission. The patient had gastritis. Biopsy from antrum was obtained to rule out H. pylori infection. At this time, the upper endoscope was retrieved and the patient was turned over for colonoscopy. First, rectal exam was performed, which was positive for internal hemorrhoids. Then, the scope was advanced from the rectum into the cecum documented by appendix orifice, ileocecal valve, and right upper quadrant palpation. Quality of prep overall was good. The patient had evidence of diverticulosis, mostly in the left colon. The patient had three polyps, two in transverse and one in the descending colon. The two in transverse looking inflammatory in nature roughly about 6 mm, removed with hot snare polypectomy technique. The one in the descending was diminutive, removed with cold biopsy forceps technique. Retroflexion of rectum was performed which showed evidence of internal hemorrhoids. SUMMARY OF FINDINGS: 1. Large hiatal hernia. 2. One column of distal esophageal varices, grade 2 without stigmata. 3. Gastritis, status post biopsy. 4. Diverticulosis, mainly of the left colon. 5. Three colonic polyps removed. See above for details. 6. Internal hemorrhoids. RECOMMENDATIONS: 1. Follow biopsy results and treat accordingly. 2. Advance diet. 3. The patient will need a repeat colonoscopy in three years given three polyps. I want to thank Dr. Del Rio for this kind referral. Vahe Chávez M.D. DR: MILLIE JOB#: [id number] CC:
[2019-11-04] MEDS: HYDROcodone/Acetamin 5/325 tab ORAL PRN (17:19)
[2019-11-04] MEDS: LORazepam 1mg tab ORAL PRN (17:22)
--- NOTE | 2019-11-04 17:45 | Progress Note ---
DATE: 11/04/2019 SUBJECTIVE: This is a 63-year-old female currently in bed comfortable. OBJECTIVE: VITAL SIGNS: Blood pressure is 149/97, pulse 91. No fever. CHEST: Bilaterally clear. CARDIOVASCULAR: Regular rhythm. ABDOMEN: Soft. EXTREMITIES: CCE. NEUROLOGICAL: No focal deficit. LABORATORY DATA: Hemoglobin is 8.9. Chemistry panel, BUN 12, creatinine 1. Glucose 116. ASSESSMENT: 1. Anemia. 2. Chronic pain. 3. Obesity. PLAN: We will continue current treatment. Alejandro Del Rio M.D. DR: THOMAS JOB#: [id number] CC:
--- NOTE | 2019-11-04 23:42 | Psych Consult Progress Note ---
Psychiatry Progress Note Psychiatry Progress Note Neurological/Psychiatric: Reports: anxiety, depressed, emotional problems Allergies: Coded Allergies: PROPOXYPHENE (Verified Allergy, Unknown, 08/25/18) Objective Data Height (Feet): 5 Height (Inches): 6 Weight (Pounds): 270 General Appearance: WD/WN, no apparent distress, alert, alert oriented x3 Appearance: no abnormalities noted Behavior Mannerisms: good eye contact Mental Status Exam - Affect: blunted Mental Status Exam - Mood: depressed, anxious Speech: clear Mental Status Exam - Thought P: no abnormalities Mental Status Exam - Suicidal: not present Assessment/Plan Problem List: (1) Anxiety and depression ICD Codes: F41.9 - Anxiety disorder, unspecified; F32.9 - Major depressive disorder, single episode, unspecified SNOMED: 853168430 Assessment/Plan: Leatha Rubio dc, MD Nov 04, 2019 23:42
--- NOTE | 2019-11-04 23:44 | Psych Consult Progress Note ---
Psychiatry Progress Note Psychiatry Progress Note Subjective 11/02/19 Allergies: Coded Allergies: PROPOXYPHENE (Verified Allergy, Unknown, 08/25/18) Objective Data Height (Feet): 5 Height (Inches): 6 Weight (Pounds): 270 General Appearance: WD/WN, no apparent distress, alert Assessment/Plan Problem List: (1) Anxiety and depression ICD Codes: F41.9 - Anxiety disorder, unspecified; F32.9 - Major depressive disorder, single episode, unspecified SNOMED: 995307884 Status: stable, progressing Assessment/Plan: bing zyprexLeatha Pompa dc, MD Nov 04, 2019 23:44
--- NOTE | 2019-11-06 15:06 | Discharge Summary ---
Discharge Summary Discharge Summary _ DATE OF ADMISSION: 11/02/2019 DATE OF DISCHARGE: 11/04/2019 DISCHARGED BY: Dr. Alejandro Del Rio CONSULTANTS: Dr. Leatha Chávez BRIEF HOSPITAL COURSE: Patient is a 63-year-old female, with past medical history of liver cirrhosis, anemia, osteoporosis and hypertension, presented to ED for abnormal labs. Patient was brought in by EMS from her extended care facility. Blood work showed low hemoglobin. Patient complained of generalized weakness and body ache. She also complained of exertional shortness of breath. She denies shortness of breath at rest. She denies fever or chills. Denies chest pain. No abdominal pain, nausea or vomiting. Upon evaluation at ED, blood work did not show any leukocytosis. Hemoglobin 7 and hematocrit 24. Platelet count 225. Electrolytes were normal. Troponin was negative. There was no active sign of bleeding. Patient was then admitted for further evaluation and management of symptomatic anemia. Patient was admitted to medical floor. She was transfused 2 units packed RBC. She was given PPI. Psychiatric medications were adjusted. Zyprexa and Paxil was discontinued. She was given Remeron and Ativan. On 11/04/2019, she underwent upper endoscopy and colonoscopy. Findings showed distal esophageal varices without any stigmata of bleeding, grade 2. She has evidence of large hiatal hernia. Colonoscopy revealed internal hemorrhoids. Diverticulosis mostly in the left colon. 3 polyps 2 in transverse section and one in descending colon. Polyps were removed. Hemoglobin was stable post blood transfusion. Patient was eventually [facility] FINAL DIAGNOSES: Anemia requiring blood transfusion Status post EGD and colonoscopy Chronic pain Obesity Anxiety and depression DISPOSITION: DC back to [facility]. DISCHARGE MEDICATIONS: Refer to Discharge Medication List. I have been assigned to complete a discharge summary on this account, I was not involved with the patient's management.--JASON Clark Jacqueline Robles NP Nov 06, 2019 15:06
== END 2019-11-04 21:10 | DRG 244 ==
LOC: EDBD 15:29 → EDBEDREQ 15:35 → EMR 15:52 → 4E 15:59 → EDBEDREQ 17:53
PROC: 30233N1 Transfusion of Nonautologous Red Blood Cells into Peripheral Vein, Percutaneous Approach (ICD-10-PCS; 2019-11-02)
PROC: 0DBL8ZZ Excision of Transverse Colon, Via Natural or Artificial Opening Endoscopic (ICD-10-PCS; 2019-11-04)
PROC: 0DD78ZX Extraction of Stomach, Pylorus, Via Natural or Artificial Opening Endoscopic, Diagnostic (ICD-10-PCS; principal; 2019-11-04 10:08)
PROC: 0DBM8ZZ Excision of Descending Colon, Via Natural or Artificial Opening Endoscopic (ICD-10-PCS; 2019-11-04 10:08)
DX: K57.31 Diverticulosis of large intestine without perforation or abscess with bleeding (principal); D63.8 Anemia in other chronic diseases classified elsewhere; I10 Essential (primary) hypertension; E66.01 Morbid (severe) obesity due to excess calories; Z68.41 Body mass index [BMI] 40.0-44.9, adult; G89.29 Other chronic pain; K74.60 Unspecified cirrhosis of liver; K44.9 Diaphragmatic hernia without obstruction or gangrene; K29.70 Gastritis, unspecified, without bleeding; K63.5 Polyp of colon; K20.8 Other esophagitis; Z88.8 Allergy status to other drugs, medicaments and biological substances; K64.8 Other hemorrhoids; I85.00 Esophageal varices without bleeding; M81.0 Age-related osteoporosis without current pathological fracture; F32.9 Major depressive disorder, single episode, unspecified; F41.9 Anxiety disorder, unspecified; Z66 Do not resuscitate
CPT/HCPCS: 36415; 71045; 76700; 80048; 80053; 82270; 83735; 83880; 84484; 85025; 85610; 85730; 86850; 86900; 86901; 86920; 87081; 93005; 94003; 94150; 96360; 96361; 96375; 99291; J8499; U0002